=== PATIENT | female | born 1965 | race Caucasian/White ===

== ENCOUNTER → 2017-08-04 11:45 | Outpatient (CLI) | payer BC, SELFPAY ==
--- NOTE | 2017-08-04 11:50 | XR_ITS ---
EXAM: XR lumbar spine min 4V HISTORY: ITS.REASON: low back pain ORDERING PHYSICIAN: Treva Cortes PATIENT AGE: 52 years COMPARISON: FINDINGS: Normal alignment. No fracture or dislocation. No lytic or blastic change. There is mild degenerative disc disease at L5-S1 and mild facet arthritic change at L4-L5 and L5-S1. IMPRESSION: Mild degenerative disc disease and facet arthritic change of the lumbar spine
--- NOTE | 2017-08-04 11:50 | XR_ITS ---
EXAM: XR thoracic spine 3V HISTORY: ITS.REASON: low back pain COMPARISON: FINDINGS: Normal alignment. No fracture or dislocation. No lytic or blastic change. There is mild multilevel degenerative disc disease of the mid and lower thoracic spine with slight decrease in the disc space and endplate osteophytes. IMPRESSION: Mild thoracic spondylosis
== END ==
PROVIDERS: PCP Nurse Practitioner Family; Visit Provider Nurse Practitioner Family
DX: M54.32 Sciatica, left side (principal)
CPT/HCPCS: 72072; 72110

== ENCOUNTER → 2017-08-18 12:05 | Outpatient (CLI) | payer BC, SELFPAY ==
--- NOTE | 2017-08-18 12:07 | US_ITS ---
US gallbladder HISTORY: ITS.REASON: abd pain ORDERING PHYSICIAN: Treva Cortes PATIENT AGE: 52 years COMPARISON: FINDINGS: PANCREAS: Unremarkable. No obvious mass or abnormal fluid collection. No ductal dilatation LIVER: No focal liver lesions demonstrated. Homogeneous echogenicity. No intrahepatic biliary ductal dilatation evident. There is increased echogenicity of the liver suggesting fatty liver RIGHT KIDNEY: Unremarkable. Normal size and echogenicity. No hydronephrosis GALLBLADDER: No gallstones, gallbladder wall thickening, pericholecystic fluid, or biliary dilatation. IMPRESSION: 1. Negative gallbladder ultrasound. 2. Fatty liver
== END ==
PROVIDERS: PCP Emergency Medicine; Visit Provider Nurse Practitioner Family
DX: K80.50 Calculus of bile duct without cholangitis or cholecystitis without obstruction (principal)
CPT/HCPCS: 76705

== ENCOUNTER → 2017-09-05 09:57 | Outpatient (CLI) | payer BC, SELFPAY ==
--- NOTE | 2017-09-05 09:59 | NM_ITS ---
NM hepatobiliary w pharm HISTORY: Right upper quadrant pain, abdominal pain ITS.REASON: RUQ pain ORDERING PHYSICIAN: Treva Cortes PATIENT AGE: 52 years COMPARISON: 08/18/2017 DOSE: 8.22 mCi technetium Choletec Fatty meal/ensure. No pain reported with fatty meal FINDINGS: Homogeneous activity is present within the hepatic parenchyma. Activity is present in the gallbladder by 10 minutes. Activity is present in the small bowel bythe ejection fraction images. The gallbladder ejection fraction is calculated to be 42% The patient did not report pain or other symptoms during the fatty meal ingestion. IMPRESSION: Unremarkable hepatobiliary scan and gallbladder ejection fraction. No evidence of common or cystic duct obstruction with normal gallbladder ejection fraction
== END ==
PROVIDERS: Family Provider Family Medicine; PCP Emergency Medicine; Visit Provider Nurse Practitioner Family
DX: R10.11 Right upper quadrant pain (principal)
CPT/HCPCS: 78227; A9537

== ENCOUNTER → 2018-12-18 18:06 | Outpatient (CLI) | payer BC, SELFPAY ==
[2018-12-18 18:33] LABS: Basophils # 0.1 K/mm3 (0-0.2); Basophils % 1.3 % (0.1-2.0); Eosinophils # 0.5 K/mm3 (0.0-0.4); Eosinophils % 4.9 % (0.1-12.0); Hemoglobin 14.5 g/dL (12.2-16.2); Lymphocytes # 2.7 K/mm3 (0.7-4.5); Lymphocytes % 29.3 % (10-50); Mean Corpuscular HGB Conc 32.9 g/dL (31.8-35.4); Mean Corpuscular Hemoglobin 29.4 pg (27.0-31.2); Mean Corpuscular Volume 89.3 fl (81-99); Mean Platelet Volume 8.8 fl (7.4-10.4); Monocytes # 0.5 K/mm3 (0.1-1.0); Monocytes % 5.1 % (1.7-9.3); Neutrophils # 5.5 K/mm3 (1.8-7.8); Neutrophils % 59.5 % (37.0-80.0); Platelet Count 338 K/mm3 (142-424); Red Blood Count 4.93 M/mm3 (4.20-5.40); Red Cell Distribution Width 14.2 % (11.5-17.5); White Blood Count 9.3 K/mm3 (4.8-10.8)
[2018-12-18 19:19] LABS: Alanine Aminotransferase 186 U/L (12-78); Albumin Level 4.4 gm/dL (3.4-5.0); Albumin/Globulin Ratio 1.3 (1.1-1.8); Alkaline Phosphatase 107 U/L (46-116); Anion Gap 14.3 mEq/L (5-15); Bilirubin,Total 1.5 mg/dL (0.2-1.0); Blood Urea Nitrogen 8 mg/dL (7-18); Calcium 9.8 mg/dL (8.5-10.1); Carbon Dioxide 29 mmol/L (21.0-32.0); Chloride 102 mmol/L (98-107); Chol/HDL Ratio 6.1 (1-3.5); Cholesterol 209 mg/dL (140-200); Creatinine,Serum 1.05 mg/dL (0.55-1.02); Estimated Glomerular Filt Rate 55 ml/min (>60); GFR (African American) 66 ML/MIN (>60); Globulin 3.3 gm/dl (1.3-3.2); Glucose 149 mg/dL (74-106); HDL Cholesterol 34 mg/dL (29-89); LDL Cholesterol 129 mg/dL (0-130); Sodium 141 mmol/L (136-145); T4 (Thyroxine) 8.9 ug/dl (4.7-13.3); Thyroid Stimulating Hormone 13.05 uIU/ml (0.358-3.740); Total Protein,Serum 7.7 gm/dL (6.4-8.2); Triglycerides 230 mg/dL (30-200); VLDL Cholesterol 46 mg/dL (0-40)
[2018-12-18 19:53] LABS: Aspartate Amino Transferase 75 U/L (15-37); Potassium 4.3 mmoL/L (3.5-5.1)
[2018-12-20 09:48] LABS: Vitamin D 25 Hydroxy 15.9 ng/mL (30.0-100.0)
== END ==
PROVIDERS: Visit Provider Nurse Practitioner Family
DX: E07.9 Disorder of thyroid, unspecified (principal); I10 Essential (primary) hypertension
CPT/HCPCS: 80053; 80061; 82652; 84436; 84443; 85025

== ENCOUNTER → 2021-02-16 13:26 | Outpatient (CLI) | payer OTHER, SELFPAY ==
[2021-02-16 16:11] LABS: Hemoglobin A1C 11.3 % (4.0-6.0)
[2021-02-17 12:27] LABS: C-Peptide 7.9 ng/mL (1.1-4.4)
== END ==
PROVIDERS: Visit Provider Nurse Practitioner Family
DX: E11.9 Type 2 diabetes mellitus without complications (principal)
CPT/HCPCS: 83036; 84681

== ENCOUNTER → 2021-04-10 10:33 | Outpatient (CLI) | payer OTHER, SELFPAY ==
--- NOTE | 2021-04-10 10:34 | MM_ITS ---
PROCEDURE INFORMATION: Exam: MG Bilateral Screening 3D Mammography Exam date and time: 04/10/2021 10:34 AM Age: 55 years old Clinical indication: Encounter for screening mammogram for malignant neoplasm of breast TECHNIQUE: Imaging protocol: Bilateral screening tomosynthesis and 2D mammography including computer-aided detection (CAD) when performed. COMPARISON: No relevant prior studies available. FINDINGS: MAMMOGRAPHY: Breast composition: The breast tissue is composed of scattered areas of fibroglandular density. Mass: 0.8 cm questionable ovoid mass in the posterior third of the left upper outer quadrant Architectural distortion: None. Calcifications: No suspicious calcifications. Asymmetric density: None. Skin thickening: None. Axillary adenopathy: None. IMPRESSION: Patient to be recalled for spot compression views of the left breast in the CC and MLO projections, a full 90 degree lateral view, and left breast ultrasound for further evaluation of a left breast mass. ASSESSMENT: BI-RADS Category 0: Incomplete- Need Additional Imaging Evaluation and/or Prior Mammograms for Comparison
== END ==
PROVIDERS: PCP Emergency Medicine; Visit Provider Nurse Practitioner Family
DX: Z12.31 Encounter for screening mammogram for malignant neoplasm of breast (principal)
CPT/HCPCS: 77063; 77067

== ENCOUNTER → 2021-05-05 14:20 | Outpatient (CLI) | payer OTHER, SELFPAY ==
--- NOTE | 2021-05-05 14:20 | US_ITS ---
PROCEDURE INFORMATION: Exam: US Left Breast, Complete MG Left Diagnostic Breast Tomosynthesis Exam date and time: 05/05/2021 2:20 PM Age: 55 years old Clinical indication: Patient recalled for further evaluation of a questionable left breast mass TECHNIQUE: Imaging protocol: Complete ultrasound of all four quadrants of the Left breast and the retroareolar regions, including ultrasound of the axilla when performed. Left Diagnostic tomosynthesis and 2D mammography including computer-aided detection (CAD) when performed. Unilateral or bilateral exam. COMPARISON: 1. MG MM DIG SCREENING MAMM BI W/CAD 04/10/2021 10:29 AM 2. MG DMDXUL DIG MAMM-DX UNILATERAL-LT 05/26/2011 11:20 AM FINDINGS: MAMMOGRAPHY: Digital diagnostic spot compression views of the left breast demonstrate normal overlapping fibroglandular structures without persistent mass or asymmetry identified. ULTRASOUND: Sonographic images of the left breast including the retroareolar region, all 4 quadrants and the axilla do not demonstrate any solid masses. Minimal subcentimeter cystic change in the upper inner quadrant. No architectural distortion or acoustical shadowing. No skin thickening or axillary adenopathy. IMPRESSION: No mammographic or sonographic evidence of malignancy. Annual bilateral mammographic screening is recommended unless otherwise clinically indicated. ASSESSMENT: BI-RADS Category 2: Benign
== END ==
PROVIDERS: PCP Emergency Medicine; Visit Provider Nurse Practitioner Family
DX: R92.8 Other abnormal and inconclusive findings on diagnostic imaging of breast (principal)
CPT/HCPCS: 76641; 77061; 77065; G0279

== ENCOUNTER → 2021-06-09 10:10 | Outpatient (CLI) | payer OTHER, SELFPAY ==
--- NOTE | 2021-06-09 10:18 | XR_ITS ---
FINAL REPORT CLINICAL HISTORY: back pain..lt leg burning x 5 months FINDINGS: LUMBAR SPINE SERIES Three views demonstrate no fracture or subluxation. There is mild degenerative change of the lower lumbar spine with small osteophytes. IMPRESSION: Mild degenerative changes. Reviewed, Interpreted and Dictated by Raj Lechuga III, MD Transcribed by Amanda Brunner Authenticated by Raj Lechuga III, MD on 06/09/2021 12:12:58 PM [facility]
== END ==
PROVIDERS: PCP Nurse Practitioner Family; Visit Provider Nurse Practitioner Family
DX: M54.50 Low back pain, unspecified (principal)
CPT/HCPCS: 72100

== ENCOUNTER → 2021-06-18 09:23 | Outpatient (CLI) | payer OTHER, SELFPAY ==
[2021-06-18 09:54] LABS: Hemoglobin A1C 5.3 % (4.0-6.0)
[2021-06-18 10:00] LABS: Microalbumin < 6.000 mg/L (0-16.7)
[2021-06-18 10:02] LABS: Basophils # 0.1 K/mm3 (0-0.2); Basophils % 1.2 % (0.1-2.0); Eosinophils # 0.6 K/mm3 (0.0-0.4); Eosinophils % 6.2 % (0.1-12.0); Hematocrit 44.6 % (37.0-47.0); Hemoglobin 15.1 g/dL (12.2-16.2); Lymphocytes # 2.5 K/mm3 (0.7-4.5); Lymphocytes % 25.5 % (10-50); Mean Corpuscular HGB Conc 33.9 g/dL (31.8-35.4); Mean Corpuscular Hemoglobin 28.9 pg (27.0-31.2); Mean Corpuscular Volume 85.2 fl (81-99); Mean Platelet Volume 8.5 fl (7.4-10.4); Monocytes # 0.5 K/mm3 (0.1-1.0); Monocytes % 5.5 % (1.7-9.3); Neutrophils # 6.1 K/mm3 (1.8-7.8); Neutrophils % 61.6 % (37.0-80.0); Platelet Count 260 K/mm3 (142-424); Red Blood Count 5.23 M/mm3 (4.20-5.40); Red Cell Distribution Width 13.3 % (11.5-17.5); White Blood Count 9.8 K/mm3 (4.8-10.8)
[2021-06-18 10:16] LABS: Chloride 96 mmol/L (98-107); Potassium 4.2 mmoL/L (3.5-5.1); Sodium 135 mmol/L (136-145)
[2021-06-18 10:18] LABS: Blood Urea Nitrogen 9 mg/dl (7-17); Estimated Glomerular Filt Rate 74 ml/min (>60); GFR (African American) 90 ML/MIN (>60)
[2021-06-18 10:19] LABS: Alanine Aminotransferase 39 U/L (12-78); Albumin Level 4.8 g/dl (3.5-5.0); Albumin/Globulin Ratio 1.8 (1.1-1.8); Alkaline Phosphatase 98 U/L (38-126); Anion Gap 13.2 mEq/L (5-15); Aspartate Amino Transferase 34 U/L (14-36); Bilirubin,Total 2.2 mg/dl (0.2-1.3); Calcium 9.1 mg/dl (8.4-10.2); Carbon Dioxide 30 mmol/L (22.0-30.0); Chol/HDL Ratio 4.5 (1-3.5); Cholesterol 178 mg/dl (140-200); Globulin 2.6 g/dL (1.3-3.2); Glucose 114 mg/dl (74-100); HDL Cholesterol 40 mg/dl (40-60); Total Protein,Serum 7.4 g/dl (6.3-8.2); Triglycerides 136 mg/dl (30-150); VLDL Cholesterol 27 mg/dL (0-40)
[2021-06-18 10:31] LABS: Direct LDL Cholesterol 103.15 mg/dL (100-129)
[2021-06-18 10:36] LABS: 25-OH Vitamin D, Total < 12.8 ng/mL (30-100)
[2021-06-18 10:37] LABS: T4 (Thyroxine) 12.3 ug/dl (5.53-11.0)
[2021-06-18 10:50] LABS: Thyroid Stimulating Hormone 4.89 uIU/mL (0.465-4.68)
== END ==
PROVIDERS: Visit Provider Nurse Practitioner Family
DX: E11.9 Type 2 diabetes mellitus without complications (principal); E55.9 Vitamin D deficiency, unspecified; Z79.84 Long term (current) use of oral hypoglycemic drugs; Z79.899 Other long term (current) drug therapy
CPT/HCPCS: 80053; 80061; 82043; 82306; 83036; 84436; 84443; 85025

== ENCOUNTER → 2021-06-24 10:48 | Outpatient (CLI) | payer OTHER, SELFPAY ==
--- NOTE | 2021-06-24 10:49 | CT_ITS ---
FINAL REPORT TECHNIQUE: Thin section axial CT images with coronal and sagittal reformats were performed. This study was performed with techniques to keep radiation doses as low as reasonably achievable (ALARA). Individualized dose reduction techniques using automated exposure control or adjustment of mA and/or kV according to the patient''s size were employed. CLINICAL HISTORY: left hip pain burning sensation FINDINGS: There are no fractures. The musculature is intact. There are no masses or fluid collections. There are no soft tissue abnormalities. IMPRESSION: No acute process. Reviewed, Interpreted and Dictated by Raj Lechuga III, MD Transcribed by Amanda Brunner Authenticated by Raj Lechuga III, MD on 06/24/2021 01:19:57 PM [facility]
== END ==
PROVIDERS: PCP Nurse Practitioner Family; Visit Provider Nurse Practitioner Family
DX: M25.552 Pain in left hip (principal)
CPT/HCPCS: 73700

== ENCOUNTER 2021-06-26 10:38 | Day surgery (SDC) | payer OTHER, SELFPAY ==
[2021-06-26 10:54] VITALS: BMI 33.2
[2021-06-26 11:03] VITALS: BP 124/79; PULSE 67; RESP 18; TEMP 36.8; O2SAT 99
[2021-06-26 11:07] LABS: Coronavirus 19, PCR Not Detected (NotDetected); Influenza A, PCR Not Detected (NotDetected); Influenza B, PCR Not Detected (NotDetected)
[2021-06-26 12:04] VITALS: O2SAT 99
--- NOTE | 2021-06-26 12:12 | P.PN_ITS ---
[facility] Anesthesia Checklist - Patient Identification Patient Identification: Arm Band - Structural Data Admitted From: Home Planned Operative Procedure/s: colonoscopy Consent for Planned Operative Procedure(s) Verified: Yes Verified Documents: Surgical Consent, History and Physical - NPO Status Verified Time NPO: 00:00 - Additional verifications Anesthesia Reactions: No - Airway Assessment C-Spine Mobility Assessed: Yes (mp2) TMJ Mobility Assessed: Yes Dentition: Edentulous - Neurological Assessment Level of Consciousness: Awake, Alert - Anesthesia Plan Anesthesia Risk discussed: Yes Anesthesia Plan: Verified ASA Class: II Anesthesia Type: MAC [facility] History I have reviewed the patient's past medical history: Yes Medical History: Reports:: Diabetes Mellitus Type 2, Hyperlipidemia, Hypertension Denies:: Cancer, Diabetes Mellitus Type 1, Internal Pacemaker, MRSA, Seizures *Have you ever received a pneumonia vaccine?: No *Have you received a flu vaccine this season?: No Other Medical History: Reports: Thyroid Disease Anesthesia experience/problems:: nac Other Surgeries: Yes: Hysterectomy-Total. No: Pacemaker Amputation: No Fractures: No - *Social History Last grade of school completed: Some college Smoking Status: Never smoker Alcohol Intake: never Substance Use Type: denies use *Occupational Status:: employed Housing: house Household Members: family *Travel in the last 8 weeks: None Family Hx:: Cancer
[2021-06-26 13:07] VITALS: BP 83/58; PULSE 75; RESP 18; TEMP 36.4; O2SAT 91
--- NOTE | 2021-06-26 13:07 | HMH.SCOPE ---
- Procedure: Date: 06/26/21 Patient Date of :: 1965 Procedure Performed:: Total colonoscopy to terminal ileum with numerous polypectomy Indications:: Patient is a 55-year-old female referred by Treva Cortes for initial screening colonoscopy. Patient states that she had tried to do a Cologuard test but was unable to do so as she does not have solid stools. She is asymptomatic. She was scheduled for screening colonoscopy. She underwent Covid testing the day of the procedure which was negative. Performing Provider:: Raj Frankel MD Referring Provider:: Treva Cortes Sedation:: MAC sedation Procedure:: Patient was taken to endoscopy procedure room. She was positioned in lateral decubitus position. Adequate intravenous sedation was achieved with anesthesia titration of propofol. Variable stiffness Olympus colonoscope was inserted via the anus. Is advanced to the cecum. Ileocecal valve and appendiceal orifice were clearly identified. Colonoscope was advanced short distance into the terminal ileum which appeared grossly normal. Colonoscope was slowly withdrawn through the colon with careful surveillance. In the ascending colon there was a small 3 to 4 mm polyp removed with cold snare. In the descending colon she had a small polyp removed with biopsy forceps. The sigmoid colon there was a small polyp removed with cold snare. Rectosigmoid colon polyp removed with cold snare with completion polypectomy using biopsy forceps. Distal sigmoid colon polyp removed with biopsy forceps. She had a proximal rectal polyp which was pedunculated adenomatous appearing removed with snare. She had several possible hyperplastic polyps in the rectum which were removed with cold snare. In the distal rectum there was a confluence of possible hyperplastic polyps of which multiple biopsies were obtained. He had anorectal lesion which appeared more polypoid than hemorrhoid and it was removed with hot snare. Retroflexion revealed minimal internal hemorrhoids. Colonoscope was withdrawn. Findings:: Numerous polyps Rare diverticulosis Recommendations:: Follow-up colonoscopy pending the results of the polyps. Likely within 2 or 3 years. However if the distal rectal biopsy of the confluence of polyps or the anorectal polyp is adenomatous may need repeat colonoscopy in as early as 6 months. Complications:: None immediately apparent Estimated blood obtained (mL): 3
[2021-06-26 13:17] VITALS: BP 98/58; PULSE 68; RESP 18; TEMP 36.4; O2SAT 98
[2021-06-26 13:27] VITALS: BP 122/77; PULSE 63; RESP 18; TEMP 36.4; O2SAT 98
[2021-06-26 13:41] VITALS: BP 122/77; PULSE 63; RESP 18; TEMP 36.4; O2SAT 98
[2022-01-21 10:57] LABS: POC Glucose,Bedside 103 (70-110)
== END 2021-06-26 13:41 | disposition home or self-care (01) ==
LOC: OUTP 10:40
PROVIDERS: PCP Nurse Practitioner Family; Visit Provider Surgery
PROC: 0DJD8ZZ Inspection of Lower Intestinal Tract, Via Natural or Artificial Opening Endoscopic (ICD-10-PCS; CPT 45385; principal; 2021-06-26 11:00)
DX: Z12.11 Encounter for screening for malignant neoplasm of colon (principal); I10 Essential (primary) hypertension; E11.9 Type 2 diabetes mellitus without complications; E78.5 Hyperlipidemia, unspecified; E07.9 Disorder of thyroid, unspecified; Z80.9 Family history of malignant neoplasm, unspecified; K63.5 Polyp of colon; K57.32 Diverticulitis of large intestine without perforation or abscess without bleeding; K62.1 Rectal polyp
CPT/HCPCS: 45385; 45380; 82962; C9803; U0003; U0005

== ENCOUNTER → 2021-10-16 13:25 | Outpatient (CLI) | payer OTHER, SELFPAY ==
[2021-10-16 13:02] LABS: Anion Gap 10.3 mEq/L (5-15); Blood Urea Nitrogen 19 mg/dl (7-17); Calcium 9.2 mg/dl (8.4-10.2); Carbon Dioxide 29 mmol/L (22.0-30.0); Chloride 102 mmol/L (98-107); Estimated Glomerular Filt Rate 74 ml/min (>60); GFR (African American) 89 ML/MIN (>60); Glucose 117 mg/dl (74-100); Potassium 4.3 mmoL/L (3.5-5.1); Sodium 137 mmol/L (136-145)
[2021-10-16 13:10] LABS: Hemoglobin A1C 5.3 % (4.0-6.0)
[2021-10-16 13:13] LABS: Amphetamine/Metha Screen,Urine Negative ng/ml (<1000)
[2021-10-16 13:14] LABS: Barbiturates Screen,Urine Negative ng/ml (<200)
[2021-10-16 13:15] LABS: Benzodiazepines Screen,Urine Negative ng/ml (<200)
[2021-10-16 13:16] LABS: Cannabinoid Screen,Urine Negative ng/ml (<50); Cocaine Screen,Urine Negative ng/ml (<300)
[2021-10-16 13:17] LABS: Methadone Screen,Urine Negative ng/ml (<300); Opiate Screen,Urine Negative ng/ml (<300)
[2021-10-16 13:18] LABS: Phencyclidine Screen,Urine Negative ng/ml (<25)
== END ==
PROVIDERS: PCP Nurse Practitioner Family; Visit Provider Nurse Practitioner Family
DX: E11.9 Type 2 diabetes mellitus without complications (principal); I10 Essential (primary) hypertension; Z79.899 Other long term (current) drug therapy
CPT/HCPCS: 80048; 80305; 83036

== ENCOUNTER → 2022-02-19 16:39 | Outpatient (CLI) | payer OTHER, SELFPAY ==
[2022-02-19 14:36] LABS: Basophils # 0.1 K/mm3 (0-0.2); Basophils % 1.3 % (0.1-2.0); Eosinophils # 0.4 K/mm3 (0.0-0.4); Eosinophils % 4.3 % (0.1-12.0); Hematocrit 44.6 % (37.0-47.0); Hemoglobin 14.5 g/dL (12.2-16.2); Lymphocytes # 2.2 K/mm3 (0.7-4.5); Lymphocytes % 22.4 % (10-50); Mean Corpuscular HGB Conc 32.5 g/dL (31.8-35.4); Mean Corpuscular Hemoglobin 27.6 pg (27.0-31.2); Mean Corpuscular Volume 84.9 fl (81-99); Mean Platelet Volume 9.2 fl (7.4-10.4); Monocytes # 0.6 K/mm3 (0.1-1.0); Monocytes % 5.8 % (1.7-9.3); Neutrophils # 6.6 K/mm3 (1.8-7.8); Neutrophils % 66.2 % (37.0-80.0); Platelet Count 271 K/mm3 (142-424); Red Blood Count 5.25 M/mm3 (4.20-5.40); Red Cell Distribution Width 14.3 % (11.5-17.5)
[2022-02-19 14:59] LABS: Hemoglobin A1C 5.4 % (4.0-6.0)
[2022-02-19 15:05] LABS: Alanine Aminotransferase 29 U/L (12-78); Albumin Level 4.4 g/dl (3.5-5.0); Albumin/Globulin Ratio 1.5 (1.1-1.8); Alkaline Phosphatase 107 U/L (38-126); Aspartate Amino Transferase 29 U/L (14-36); Bilirubin,Total 2.1 mg/dl (0.2-1.3); Calcium 9.4 mg/dl (8.4-10.2); Carbon Dioxide 29 mmol/L (22.0-30.0); Chloride 99 mmol/L (98-107); Chol/HDL Ratio 4.1 (1-3.5); Cholesterol 191 mg/dl (140-200); Globulin 2.9 g/dL (1.3-3.2); Glucose 108 mg/dl (74-100); HDL Cholesterol 47 mg/dl (40-60); Sodium 140 mmol/L (136-145); Total Protein,Serum 7.3 g/dl (6.3-8.2); Triglycerides 98 mg/dl (30-150); VLDL Cholesterol 20 mg/dL (0-40)
[2022-02-19 15:09] LABS: Blood Urea Nitrogen 16 mg/dl (7-17); Estimated Glomerular Filt Rate 74 ml/min (>60); GFR (African American) 89 ML/MIN (>60)
[2022-02-19 15:36] LABS: Thyroid Stimulating Hormone 2.57 uIU/mL (0.465-4.68)
== END ==
PROVIDERS: PCP Nurse Practitioner Family; Visit Provider Nurse Practitioner Family
DX: I10 Essential (primary) hypertension (principal); E11.9 Type 2 diabetes mellitus without complications; R53.83 Other fatigue; Z79.84 Long term (current) use of oral hypoglycemic drugs
CPT/HCPCS: 80053; 80061; 83036; 84443; 85025

== ENCOUNTER → 2022-04-08 09:45 | Outpatient (CLI) | payer OTHER, SELFPAY | PROVIDERS: PCP Nurse Practitioner Family; Visit Provider Nurse Practitioner Family | DX: N39.0 Urinary tract infection, site not specified (principal) | CPT/HCPCS: 87086 ==

== ENCOUNTER 2022-04-14 10:06 | Outpatient (RCR) | payer OTHER, SELFPAY ==
--- NOTE | 2022-04-14 10:42 | HMH.PTOPEV ---
PT Outpatient Evaluation Rehab PT Outpatient Evaluation Start: 04/14/22 10:27 Freq: Status: Active Protocol: Document 04/14/22 10:27 TYRELL (Rec: 04/14/22 10:42 TYRELL [id number]) E-signed By Yassine Emmanuel, PT Outpatient Therapy Subjective History Subjective History Pt reports h/o chronic LBP since work injury ~2 years ago . Pt reports left > right sided LBP with left > right LE radicular s/s from glut mm area to posterior knee level. Pt reports previous imaging studies have revealed disc issues in lumbar spine. PMH:DM Chief Complaint Pain,Stiff,Paresthesia, Weakness Symptom Type Ache,Sharp,Dull,Stabbing, Burning Symptoms Relieved By Rest/Positioning,Heat, Prescription Meds Symptoms Aggravated By Standing,Bending/Stooping, Twisting,Walking,Lifting Prior Functional Limitations Lifting,Housework,Standing, Walking,Bending/Stooping Current Functional Limitations Lifting,Housework,Standing, Recreation Activity,Bending/ Stooping Symptom Description Constant but Variable Level of pain today (0-10) 8 Pain scale - at its best (0-10) 8 Pain scale - at its worst (0-10) 10 Lumbopelvic Eval Posture Thoracic Spine Posture Standing Position Increased Kyphosis Lumbar Spine Posture Standing Position Increased Lordosis Assistive device Assistive Devices None / NA Gait Observation General Gait Pattern Observation Antalgic Gait Palapation tenderness bilateral thoracic spinal tenderness Yes: 1-2/4 lumbar spinal tenderness Yes: 3/4 paraspinal tenderness Yes: 3/4 buttock tenderness Yes: 3-4/4 Lumbar/Sacral Palpation Findings Tenderness,Trigger Point, Muscle Guarding Accessory Movement L-spine Vertebrae Accessory Movements [place] [facility] [place] that Elicit Symptoms L2 bilateral L3 bilateral L4 bilateral L5 bilateral S1 bilateral Range of Motion Lumbar Spine Active Flexion Range of 0-40 Motion (degrees) Lumbar Spine Active Extension Range of 0-20 Motion (degrees) Left Lumbar Spine Lateral Flexion Active 0-20 Range of Motion (degrees) Right Lumbar Spine Lateral Flexion 0-20 Active Range of Motion (degrees) Lumbar
== END 2022-04-14 11:06 | disposition home or self-care (01) ==
LOC: PT 10:06
PROVIDERS: PCP Nurse Practitioner Family; Visit Provider Nurse Practitioner Family
DX: M54.42 Lumbago with sciatica, left side (principal); M54.41 Lumbago with sciatica, right side; G89.29 Other chronic pain
CPT/HCPCS: 97163

== ENCOUNTER → 2022-04-15 08:54 | Outpatient (CLI) | payer OTHER, SELFPAY ==
--- NOTE | 2022-04-15 08:54 | MR_ITS ---
FINAL REPORT CLINICAL HISTORY: LBP FINDINGS: Multiplanar MR imaging of the lumbar spine was performed without contrast. On the sagittal T2-weighted images, disc degeneration is seen at multiple levels. There is mild anterolisthesis of L5 on S1 with endplate changes at this level. Note is made of several hemangiomas. There is no evidence of fracture. The conus has an unremarkable appearance. L1-2: There is no significant canal stenosis or neural foraminal narrowing. L2-3: An annular bulge and facet arthropathy are present. There is no significant canal stenosis or neural foraminal narrowing. L3-4: An annular bulge is present. There is no significant canal stenosis or neural foraminal narrowing. L4-5: An annular bulge and facet arthropathy are present. There is no significant canal stenosis or neural foraminal narrowing. L5-S1: An annular bulge is present. Facet arthropathy and osteophytes are present. There is a small right paracentral disc protrusion which contacts the right S1 nerve root. There is mild bilateral neural foraminal narrowing. Note is made of mild spurring of the sacroiliac joints. IMPRESSION: Right paracentral disc protrusion at L5-S1 contacts the right S1 nerve root. Multilevel degenerative disc disease and spondylosis. Reviewed, Interpreted and Dictated by Raj Lechuga III, MD Transcribed by Amanda Brunner Authenticated and [facility]
== END ==
PROVIDERS: PCP Nurse Practitioner Family; Visit Provider Nurse Practitioner Family
DX: G89.29 Other chronic pain (principal); M54.41 Lumbago with sciatica, right side; M54.42 Lumbago with sciatica, left side
CPT/HCPCS: 72148; 76376

== ENCOUNTER → 2022-06-08 12:52 | Outpatient (POV) | payer OTHER, SELFPAY ==
[2022-06-08 13:03] VITALS: BP 156/86; PULSE 83; RESP 20; TEMP 37.2; O2SAT 98; BMI 35.3
--- NOTE | 2022-06-08 13:37 | EXP.PAIN.OV ---
HPI Data of Consult Patient: new to practice Consult date: 06/08/22 Requesting Physician: Lonnie Cano CRNA Primary Care Provider: Stuart Finney MD Consult Narrative Reason for consult: Lumbar back pain. Bilateral hip and leg radicular symptoms History of present illness: Ms. Veliz is a 56 year old female who presents to our clinic today for initial evaluation regarding chronic low back pain she describes as constant, dull, aching. Patient also complaining of bilateral hip and leg radicular symptoms. Patient had consultation with [facility] neurosurgery. This was on 05/31/2022. Patient was started on gabapentin 400 mg 1 p.o. twice daily at that time. Patient reports today gabapentin decreased her radicular symptoms about 40% bilaterally. Patient was referred to us at that time for interventional management of her symptoms. He was recommended by neurosurgery the patient undergo transforaminal epidural steroid injection on the right at L5-S1. However, after lengthy discussion with the patient regarding her symptoms. I recommend starting with interlaminar epidural steroid injection at the L4-5 level. Her lumbar MRI shows multilevel disc bulge L3-4, L4-5 and L5-S1. The S1 nerve root is in contact with the disc protrusion to the right at L5-S1. Due to the fact she has bilateral leg radiculopathy I suggest to the patient we start with interlaminar L4-5 epidural steroid injection. CC: Lonnie Cano CRNA [facility] Disclaimer: The information contained in this section may have been updated after the patient was seen, as this information can be updated by other users. Medical History (Updated 06/08/22 @ 13:43 by Lonnie Cano CRNA) HLD (hyperlipidemia) Hypothyroid Left hip pain Low Back Pain Family History (Updated 06/08/22 @ 13:11 by Josie Buckner RN) Other No significant family history Social History (Updated 06/08/22 @ 13:11 by Josie Buckner RN) Smoking Status: Never smoker alcohol intake: never substance use type: denies use current occupational status: employed and other Travel in the last 8 weeks: None household members: family housing: house current occupation: [employer] current occupational exposures/hazards: No caffeine: Yes Review of Systems Review of Systems Review of systems (narrative): Patient is awake alert [place] x3. In no acute distress. Flexion-extension lumbar spine somewhat guarded secondary to pain. Deep tendon reflexes upper lower extremities normal. Motor strength upper and lower extremities normal. There is no gross sensory deficit. Gait is normal. Meds Home Medications and Allergies Home Medications Medication Instructions Recorded Confirmed Type blood-glucose meter 06/26/21 04/08/22 History flash glucose sensor 06/26/21 04/08/22 History blood sugar diagnostic (OneTouch #100 ea 02/20/22 04/08/22 Rx Ultra Test strips) lancets 33 gauge #100 ea 02/20/22 04/08/22 Rx ondansetron 4 mg disintegrating 4 mg PO Q8H PRN nausea and 05/20/22 06/08/22 Rx tablet vomiting #30 tabs ergocalciferol (vitamin D2) 1,250 1,250 mcg PO DAILY Supplement 06/08/22 06/08/22 History mcg (50,000 unit) capsule gabapentin 400 mg capsule 400 mg PO TID nerve pain 06/08/22 06/08/22 History levothyroxine 88 mcg tablet 88 mcg PO DAILY thyroid 06/08/22 06/08/22 History lisinopril 20 1 tab PO DAILY blood pressure 06/08/22 06/08/22 History mg-hydrochlorothiazide 12.5 mg tablet naproxen 500 mg tablet 500 mg PO BID Pain 06/08/22 06/08/22 History quetiapine 25 mg tablet (Seroquel) 25 mg PO DAILY . 06/08/22 06/08/22 History semaglutide 0.25 mg or 0.5 mg (2 0.5 mg SQ WEEKLY Diabetes 06/08/22 06/08/22 History mg/1.5 mL) subcutaneous pen injector (Ozempic) simvastatin 5 mg tablet 5 mg PO DAILY Cholesterol 06/08/22 06/08/22 History New Prescriptions to Start Prescriptions: Allergies Allergy/AdvReac Type Severity Reaction Status Date / Time
--- NOTE | 2022-06-08 14:02 | EXP.PAIN.SOA ---
[facility] Pain Management SOAP Note Subjective:: This patient is a very pleasant [facility] Disclaimer: The information contained in this section may have been updated after the patient was seen, as this information can be updated by other users. Medical History (Updated 06/08/22 @ 13:43 by Lonnie Cano CRNA) HLD (hyperlipidemia) Hypothyroid Left hip pain Low Back Pain Family History (Updated 06/08/22 @ 13:11 by Josie Buckner RN) Other No significant family history Social History (Updated 06/08/22 @ 13:11 by Josie Buckner RN) Smoking Status: Never smoker alcohol intake: never substance use type: denies use current occupational status: employed and other Travel in the last 8 weeks: None household members: family housing: house current occupation: [employer] current occupational exposures/hazards: No caffeine: Yes
== END ==
PROVIDERS: PCP Emergency Medicine; Visit Provider Nurse Anesthetist, Certified Registered
DX: M51.16 Intervertebral disc disorders with radiculopathy, lumbar region (principal)
CPT/HCPCS: 99202; G0463

== ENCOUNTER 2022-06-15 07:59 | Day surgery (SDC) | payer OTHER, SELFPAY ==
[2022-06-15 08:14] VITALS: BP 161/95; PULSE 75; RESP 18; TEMP 36.6; O2SAT 100; BMI 34.2
[2022-06-15 08:35] VITALS: BP 180/86; PULSE 68; RESP 18; O2SAT 97
[2022-06-15 08:38] VITALS: BP 180/83; PULSE 83; RESP 18; O2SAT 97
[2022-06-15 08:42] VITALS: BP 134/74; PULSE 68; RESP 18; O2SAT 100
--- NOTE | 2022-06-15 09:21 | P.PCN_ITS ---
Procedure Date: 06/15/22 Time: 08:30 Anesthesiologist:: Lonnie Cano CRNA Complications:: None Pre-procedure Diagnosis:: Degenerative disc disease lumbar spine multilevels. Lumbar radiculopathy. Multilevel lumbar disc bulge Post-procedure Diagnosis:: Same. Indications for Procedure:: Patient is a very pleasant 56-year-old female comes our clinic today for her initial lumbar epidural steroid injection at the L4-5 level. Patient describes low back pain as constant, dull, aching. She also complains of bilateral hip and leg radicular symptoms. Procedure Details:: Procedure: Lumbar epidural steroid injection under fluoroscopy Informed consent was obtained and the risks and benefits of the procedure were explained to the patient. The patient was taken to the procedure room and noninvasive monitors placed, including noninvasive blood pressure cuff and pulse oximeter. The back was viewed using C-arm Fluoroscopy and prepped using Chloraprep as a cleansing solution and the L4-L5 interspace was palpated. Skin and subcutaneous tissues were anesthetized using lidocaine 1.5% and a 25-gauge needle. After this, an 18-gauge Touhy epidural needle was placed into the L4-L5 interspace and advanced using fluoroscopic guidance and loss of resistance to air until the epidural space was encountered. After confirmation of needle placement in the epidural space, with dye, a solution containing normal saline, 3 mL and Depo-Medrol 80 mg were incrementally injected into the lumbar epidural space. The patient tolerated the procedure well with no complications. The patient was observed in the Pain Clinic and then discharged home neurologic ally intact. Plan and Disposition:: Patient was discharged without incident.
== END 2022-06-15 08:42 | disposition home or self-care (01) ==
PROVIDERS: PCP Emergency Medicine; Visit Provider Nurse Anesthetist, Certified Registered
DX: M51.16 Intervertebral disc disorders with radiculopathy, lumbar region (principal)
CPT/HCPCS: 62323; J1040

== ENCOUNTER → 2022-07-01 10:24 | Outpatient (POV) | payer OTHER, SELFPAY ==
--- NOTE | 2022-07-01 10:33 | EXP.PAIN.SOA ---
[facility] Pain Management SOAP Note Subjective:: Patient is a pleasant 56-year-old female who presents today for follow-up of lumbar epidural steroid injection at L4-L5 on 06/15/2022. We are currently treating the patient for degenerative disc disease of lumbar spine with lumbar radiculopathy symptoms, bilateral hip pain. Today she rates her pain a 6 out of 10. Patient states the injection did provide upwards of 30% or more and that it did take away the sharp shocking pain she was experiencing down her legs. She does rate her pain a 6 out of 10 today. She states that she continues to experience a dull ache that radiates down her lower extremities. She does state that she has had imaging of her bilateral hips that did show arthritis. Patient is prescribed gabapentin 400 mg twice a day from 's office. Patient denies any side effects from this medication. Patient states she has tried muscle relaxers in the past however its been years. Her Nixon is [phone]. Its been reviewed and appropriate. Review of Systems: General: No recent weight changes, no fever, no sleep disturbances Respiratory: No cough, no shortness of air, no recurring pulmonary infections Cardiovascular/peripheral vascular: No chest pain, no palpitations, no edema, no shortness of breath Gastrointestinal: No new onset incontinence, normal bowel movements reported Genitourinary: No new onset incontinence Musculoskeletal: Low back pain Psychiatric: [Normal mood/affect] Neurological: [Denies weakness in extremities], [denies balance issues] Objective:: Physical Exam: General: Alert and oriented x3, no acute distress, pleasant and cooperative Lungs: Respirations even and unlabored, symmetrical chest expansion Eyes: PERRL Musculoskeletal: Flexion and extension of lumbar [spine] somewhat guarded secondary to pain, [antalgic gait noted] Neurological: Speech clear, no gross sensory deficit Assessment:: Degenerative disc disease of lumbar spine with lumbar radiculopathy symptoms, bilateral hip pain Plan:: Patient continues to experience significant pain in her low back with radiating symptoms into her lower extremities along with hip pain. I have discussed with the patient that she may benefit from intra-articular hip injections in the future however at this time she would like to wait. I will prescribe the patient cyclobenzaprine 10 mg 3 times daily and provide a 1 month supply of this medication. I will also order the patient a compounding cream and physical therapy. Patient will return to clinic in 1 month for reevaluation of symptoms, medication refill and follow-up. Patient has been instructed to contact the clinic with any concerns before the next appointment. Dr. Padilla has reviewed this note and agrees with this plan of care. This note was dictated using voice recognition software and make contain errors or omissions. [facility] Disclaimer: The information contained in this section may have been updated after the patient was seen, as this information can be updated by other users. Medical History HLD (hyperlipidemia) Hypothyroid Left hip pain Low Back Pain Family History Other No significant family history Social History Smoking Status: Never smoker alcohol intake: never substance use type: denies use current occupational status: employed Travel in the last 8 weeks: None household members: family housing: house current occupation: [employer] current occupational exposures/hazards: No caffeine: Yes
[2022-07-01 10:41] VITALS: BP 156/80; PULSE 85; RESP 18; O2SAT 97; BMI 34.2
== END | disposition home or self-care (01) ==
PROVIDERS: PCP Emergency Medicine; Visit Provider Nurse Practitioner Family
DX: M51.16 Intervertebral disc disorders with radiculopathy, lumbar region (principal); M25.551 Pain in right hip; M25.552 Pain in left hip
CPT/HCPCS: 99212; G0463

== ENCOUNTER 2022-07-21 13:00 | Outpatient (RCR) | payer OTHER, SELFPAY ==
--- NOTE | 2022-07-08 11:42 | HMH.PTOPEV ---
PT Outpatient Evaluation Rehab PT Outpatient Evaluation Start: 07/08/22 11:04 Freq: Status: Active Protocol: Document 07/08/22 11:31 MICHELLE (Rec: 07/08/22 11:42 MICHELLE [id number]) E-signed By Maykel Bush, PT Outpatient Therapy Subjective History Subjective History Patient is a 56 year old female presenting to outpatient PT with reports of chronic BLE radicular symptoms R>L starting approx 10 years ago that has progessively gotten worse over the past 6 months. Patient reports initial injury occurred as a work related lifting activity. Most recent imaging indicates L5/S1 disc protrusion, DDD and spondylosis. Comorbidities include hx of diabetes, neuropathy, HTN and HL. Chief Complaint Pain,Stiff,Paresthesia, Weakness Symptom Type Throb,Burning Symptoms Relieved By Rest/Positioning Symptoms Aggravated By Bending/Stooping,Physical Activity,Walking,Lifting Prior Functional Limitations None,Standing Current Functional Limitations Lifting,Housework,Standing, Walking,Bending/Stooping Symptom Description Constant but Variable Level of pain today (0-10) 7 Pain scale - at its best (0-10) 5 Pain scale - at its worst (0-10) 10 Lumbopelvic Eval Posture Thoracic Spine Posture Standing Position Increased Kyphosis Lumbar Spine Posture Standing Position Increased Lordosis Assistive device Assistive Devices None / NA Palapation tenderness right Lumbar/Sacral Palpation Findings Tenderness Lumbar/Sacral Palpation Overall Comment R SIJ and buttock mm 3/4 Accessory Movement L5 right S1 right Range of Motion Lumbar Spine Active Flexion Range of 62 Motion (degrees) Lumbar Spine Active Extension Range of 14 Motion (degrees) Left Lumbar Spine Lateral Flexion Active 18 Range of Motion (degrees) Right Lumbar Spine Lateral Flexion 17 Active Range of Motion (degrees) Lumbar Spine ROM Limitations Soft Tissue Tightness,Bony Restriction Manual Muscle Test Bilateral Knee Extension Strength Grade 5 Normal Knee Flexion Strength Grade 5 Normal Hip Flexion Strength Grade 5 Normal Extensor Hallucis Longus Strength Grade 5 Normal Ankle Dorsiflexion Strength Gra
== END 2022-07-21 13:05 | disposition home or self-care (01) ==
LOC: PT 13:00
PROVIDERS: PCP Emergency Medicine; Visit Provider Nurse Practitioner Family
DX: M54.50 Low back pain, unspecified (principal)
CPT/HCPCS: 97010; 97014; 97035; 97110; 97163; G0283

== ENCOUNTER → 2022-08-05 08:23 | Outpatient (POV) | payer OTHER, SELFPAY ==
[2022-08-05 08:34] VITALS: BP 127/87; PULSE 84; RESP 18; O2SAT 98; BMI 34.4
--- NOTE | 2022-08-05 08:46 | A.OFFVIS_ITS ---
[facility] Pain Management SOAP Note Subjective:: Patient is a pleasant 57-year-old female who presents today for follow-up and medication refill. We are currently treating the patient for degenerative disc disease of lumbar spine with lumbar radiculopathy symptoms, bilateral hip pain. Today she rates her pain a 7 out of 10. Patient denies any new trauma or injury. Patient denies any change to the location or type of pain she experiences. She states that following her epidural in May she did have improvement in the shocking/numbing sensations she had in her legs however starting back physical therapy has aggravated her pains and she is experiencing more of these prior sensations. Patient is scheduled to see a surgeon in [facility] on 20 August. She is currently managed with gabapentin 400 mg twice a day from Dr. Brand's office and cyclobenzaprine 10 mg 3 times daily from our office. Patient states the muscle relaxer and the compounding cream has helped improve some of her symptoms. Her Nixon is [phone]. Its been reviewed and appropriate. Review of Systems: General: No recent weight changes, no fever, no sleep disturbances Respiratory: No cough, no shortness of air, no recurring pulmonary infections Cardiovascular/peripheral vascular: No chest pain, no palpitations, no edema, no shortness of breath Gastrointestinal: No new onset incontinence, normal bowel movements reported Genitourinary: No new onset incontinence Musculoskeletal: Low back pain, hip pain Psychiatric: [Normal mood/affect] Neurological: [Denies weakness in extremities], [denies balance issues] Objective:: Physical Exam: General: Alert and oriented x3, no acute distress, pleasant and cooperative Lungs: Respirations even and unlabored, symmetrical chest expansion Eyes: PERRL Musculoskeletal: Flexion and extension of lumbar [spine] somewhat guarded secondary to pain, [antalgic gait noted] Neurological: Speech clear, no gross sensory deficit Assessment:: Degenerative disc disease of lumbar spine with lumbar radiculopathy symptoms, b ilateral hip pain Plan:: Patient continues to have significant pain in her low back, hips and legs. I will refill her cyclobenzaprine 10 mg 3 times daily and provide a 3-month supply of this medication. Patient will return to clinic in 6 weeks for reevaluation of symptoms and plan of care. Patient has been instructed to contact the clinic with any concerns before the next appointment. Dr. Padilla has reviewed this note and agrees with this plan of care. This note was dictated using voice recognition software and make contain errors or omissions. [facility] Disclaimer: The information contained in this section may have been updated after the yamilet pastrana was seen, as this information can be updated by other users. Medical History HLD (hyperlipidemia) Hypothyroid Left hip pain Low Back Pain Family History Other No significant family history Social History Smoking Status: Never smoker alcohol intake: never substance use type: denies use current occupational status: employed Travel in the last 8 weeks: None household members: family housing: house current occupation: [employer] current occupational exposures/hazards: No caffeine: Yes
== END | disposition home or self-care (01) ==
PROVIDERS: PCP Emergency Medicine; Visit Provider Nurse Practitioner Family
DX: M51.16 Intervertebral disc disorders with radiculopathy, lumbar region (principal); M25.551 Pain in right hip; M25.552 Pain in left hip
CPT/HCPCS: 99212; G0463

== ENCOUNTER → 2022-09-16 10:15 | Outpatient (CLI) | payer OTHER, SELFPAY ==
[2022-09-16 13:05] LABS: Basophils # 0.1 K/mm3 (0-0.2); Basophils % 1.2 % (0.1-2.0); Eosinophils # 0.5 K/mm3 (0.0-0.4); Eosinophils % 7.1 % (0.1-12.0); Hemoglobin 13.4 g/dL (12.2-16.2); Lymphocytes # 2.1 K/mm3 (0.7-4.5); Lymphocytes % 29.7 % (10-50); Mean Corpuscular HGB Conc 32.8 g/dL (31.8-35.4); Mean Corpuscular Hemoglobin 28.1 pg (27.0-31.2); Mean Corpuscular Volume 85.7 fl (81-99); Mean Platelet Volume 8.4 fl (7.4-10.4); Monocytes # 0.3 K/mm3 (0.1-1.0); Monocytes % 4.7 % (1.7-9.3); Neutrophils % 57.4 % (37.0-80.0); Platelet Count 239 K/mm3 (142-424); Red Blood Count 4.78 M/mm3 (4.20-5.40); Red Cell Distribution Width 14.1 % (11.5-17.5)
[2022-09-16 13:43] LABS: Alanine Aminotransferase 48 U/L (12-78); Albumin/Globulin Ratio 1.7 (1.1-1.8); Alkaline Phosphatase 80 U/L (38-126); Anion Gap 16.8 mEq/L (5-15); Aspartate Amino Transferase 36 U/L (14-36); Bilirubin,Total 1.6 mg/dl (0.2-1.3); Blood Urea Nitrogen 10 mg/dl (7-17); Calcium 8.9 mg/dl (8.4-10.2); Carbon Dioxide 31 mmol/L (22.0-30.0); Chloride 98 mmol/L (98-107); Chol/HDL Ratio 3.6 (1-3.5); Cholesterol 146 mg/dl (140-200); Estimated Glomerular Filt Rate 74 ml/min (>60); GFR (African American) 89 ML/MIN (>60); Globulin 2.3 g/dL (1.3-3.2); Glucose 109 mg/dl (74-100); HDL Cholesterol 41 mg/dl (40-60); Potassium 3.8 mmoL/L (3.5-5.1); Sodium 142 mmol/L (136-145); Total Protein,Serum 6.3 g/dl (6.3-8.2); Triglycerides 170 mg/dl (30-150); VLDL Cholesterol 34 mg/dL (0-40)
[2022-09-16 13:54] LABS: Direct LDL Cholesterol 80.89 mg/dL (100-129)
[2022-09-16 14:14] LABS: Thyroid Stimulating Hormone 1.02 uIU/mL (0.465-4.68)
[2022-09-16 14:30] LABS: Hemoglobin A1C 5.5 % (4.0-6.0)
== END ==
PROVIDERS: PCP Nurse Practitioner Family; Visit Provider Nurse Practitioner Family
DX: E11.9 Type 2 diabetes mellitus without complications (principal); N39.0 Urinary tract infection, site not specified; Z79.84 Long term (current) use of oral hypoglycemic drugs
CPT/HCPCS: 80053; 80061; 83036; 84443; 85025; 87086

== ENCOUNTER → 2022-09-16 13:25 | Outpatient (POV) | payer OTHER, SELFPAY ==
--- NOTE | 2022-09-16 13:28 | EXP.PAIN.SOA ---
[facility] Pain Management SOAP Note Subjective:: Patient is a pleasant 57-year-old female who presents today for follow-up and medication refill.? We are currently treating the patient for degenerative disc disease of lumbar spine with lumbar radiculopathy symptoms, bilateral hip pain.? Today she rates her pain a 8 out of 10.? Patient denies any new trauma or injury.? She states she has been experiencing increased pain around her low back along the left side that radiates into her left hip. She does describe this as a aching sensation with numbness and burning. Patient does state it interferes with her ability perform activities of daily living such as cooking and cleaning. Patient states she does a lot of bending and moving at her job and is constantly on her feet which she does believe aggravates her pain symptoms. She is currently managed with gabapentin 400 mg twice a day from Dr. Brand's office and naproxen 500 mg twice daily cyclobenzaprine 10 mg 3 times daily from our office.? She states she feels like some of the medications are not seeming to help as well. She is also prescribed compounding cream that she states helps and she just placed another order of it recently. Her Nixon is [phone].? Its been reviewed and appropriate. Review of Systems: General: No recent weight changes, no fever, no sleep disturbances Respiratory: No cough, no shortness of air, no recurring pulmonary infections Cardiovascular/peripheral vascular: No chest pain, no palpitations,? no edema, no shortness of breath Gastrointestinal: No new onset incontinence, normal bowel movements reported Genitourinary: No new onset incontinence Musculoskeletal: Low back pain, left hip pain Psychiatric: [Normal mood/affect] Neurological: [Denies weakness in extremities], [denies balance issues] Objective:: Physical Exam: General: Alert and oriented x3, no acute distress, pleasant and cooperative Lungs: Respirations even and unlabored, symmetrical chest expansion Eyes: PERRL Musculoskeletal: Flexion and extension of lumbar [spine] somewhat guarded secondary to pain; extreme point tenderness along left SI with positive left Sofy's, Jose's, Gaenslen's, compression and distraction exam Neurological: Speech clear, no gross sensory deficit Assessment:: Degenerative disc disease of lumbar spine with lumbar radiculopathy symptoms, bilateral hip pain left-sided sacroiliitis Plan:: Patient is experiencing significant pain in her low back along the left side with limited range of motion. Patient did have extreme point tenderness along her left SI with a positive left Sofy's, Jose's, Gaenslen's, compression and distraction exam. I have discussed with the patient that she may benefit from left SI injection. Patient has tried and failed conservative therapy such as oral medications, heat and ice, topicals, physical therapy, at home stretching and exercise for longer than 6 weeks. I will also change her naproxen to Celebrex 200 mg daily and provide a 2-week supply of this medication. Patient has been counseled to discontinue her naproxen and all other NSAIDs while taking this medication and to take it with food to minimize GI upset. We will schedule her for a left SI injection. Patient has been instructed to contact the clinic with any concerns before the next appointment. Dr. Padilla has reviewed this note and agrees with this plan of care. This note was dictated using voice recognition software and make contain errors or omissions. [facility] Disclaimer: The information contained in this section may have been updated after the patient was seen, as this information can be updated by other users. Medical History HLD (hyperlipidemia) Hypothyroid Left hip pain Low Back Pain Family History Other No significant family history Social History (Reviewed 09/16/22 @ 10:19 by Armida Buckner
[2022-09-16 13:53] VITALS: BP 140/84; PULSE 81; RESP 18; O2SAT 97; BMI 34.0
== END | disposition home or self-care (01) ==
PROVIDERS: PCP Emergency Medicine; Visit Provider Nurse Practitioner Family
DX: M51.16 Intervertebral disc disorders with radiculopathy, lumbar region (principal); M46.1 Sacroiliitis, not elsewhere classified; M25.551 Pain in right hip; M25.552 Pain in left hip
CPT/HCPCS: 99212; G0463

== ENCOUNTER → 2022-09-24 13:29 | Outpatient (CLI) | payer OTHER, SELFPAY ==
--- NOTE | 2022-09-24 13:31 | MM_ITS ---
PROCEDURE INFORMATION: Exam: MG Bilateral Screening 3D Mammography Exam date and time: 09/24/2022 1:29 PM Age: 57 years old Clinical indication: Screening examination TECHNIQUE: Imaging protocol: Bilateral Screening tomosynthesis and 2D mammography including computer-aided detection (CAD) when performed. COMPARISON: 1. MG MM DIG MAMM DX UNILAT LT CAD 05/05/2021 2:24 PM 2. MG MM DIG SCREENING MAMM BI W/CAD 04/10/2021 10:29 AM FINDINGS: MAMMOGRAPHY: Breast composition: The breasts are almost entirely fatty. Mass: None. Architectural distortion: None. Calcifications: No suspicious calcifications. Asymmetric density: None. Skin thickening: None. Axillary adenopathy: None. IMPRESSION: No mammographic evidence of malignancy. Annual screening is recommended unless otherwise clinically indicated. ASSESSMENT: BI-RADS Category 1: Negative
== END ==
PROVIDERS: PCP Emergency Medicine; Visit Provider Nurse Practitioner Family
DX: Z12.31 Encounter for screening mammogram for malignant neoplasm of breast (principal)
CPT/HCPCS: 77063; 77067

== ENCOUNTER 2022-09-28 10:28 | Day surgery (SDC) | payer OTHER, SELFPAY ==
[2022-09-28 10:36] VITALS: BP 138/83; PULSE 81; RESP 18; TEMP 36.6; O2SAT 100; BMI 33.2
[2022-09-28 10:42] VITALS: BP 141/70; PULSE 75; RESP 18; O2SAT 100
--- NOTE | 2022-09-28 10:44 | EXP.PAIN.PRO ---
Procedure Date: 09/28/22 Time: 10:40 Anesthesiologist:: Lonnie Cano CRNA Complications:: None Pre-procedure Diagnosis:: Left sacroiliitis Post-procedure Diagnosis:: Same Indications for Procedure:: Patient is a very pleasant 57-year-old female that comes our clinic today for left sacroiliac joint injection. Patient has extreme point tenderness over the left sacroiliac joint area. Patient complains of pain with ambulation, sitting, standing for any length of time. She has difficulty transitioning from sitting to standing. She rates her pain 7/10. Procedure Details:: Procedure: Left sacroiliac injection under fluoroscopy Informed consent was obtained and the risk and benefits of the procedure were explained to the patient.~ The patient was taken to the procedure room and noninvasive monitors were placed including noninvasive blood pressure cuff and pulse oximeter.~ The patient was placed prone on the procedure table.~ The~ left hip was cleansed using Betadine as a cleansing solution.~ C-arm fluorosocpy was used to view the left SI joint.~ The skin and subcutaneous tissues were anesthetized using Lidocaine 1.5% and a 25-gauge needle.~ After this, a 22-gauge spinal needle was inserted under fluoroscopic guidance into the inferior aspect of the left SI joint.~ Omnipaque dye was injected and a good spread was seen throughout the joint.~ After this, approximately 5 mL of bupivacaine 0.25% and Depo-Medrol 40 mg was incrementally injected into the sacroiliac joint.~ The patient tolerated the procedure well with no complications.~ The patient was observed in the Pain Clinic for a period of 30-45 minutes, then discharged home neurologically intact.~ Plan and Disposition:: Patient was discharged without incident.
== END 2022-09-28 10:42 | disposition home or self-care (01) ==
PROVIDERS: PCP Emergency Medicine; Visit Provider Nurse Anesthetist, Certified Registered
DX: M46.1 Sacroiliitis, not elsewhere classified (principal)
CPT/HCPCS: 27096; G0260; J1040

== ENCOUNTER → 2022-10-13 10:46 | Outpatient (POV) | payer OTHER, SELFPAY ==
--- NOTE | 2022-10-13 11:14 | EXP.PAIN.SOA ---
[facility] Pain Management SOAP Note Subjective:: Patient is a pleasant 57-year-old female who presents today for follow-up of left SI injection on 09/28/2022. We are currently treating the patient for degenerative disc disease of lumbar spine with lumbar radiculopathy symptoms, bilateral hip pain, sacroiliitis. Today she rates her pain an 8 out of 10. She states that she only got some improvement while the numbing medication lasted. She states following that she had no additional relief. She does continue to have significant pain in her low back that she describes as an aching, throbbing sensation that is worse with increased activity. Patient states that she was recently started on Wellbutrin and at our last visit we did start her on Celebrex 200 mg daily. Patient states that following the addition of these medication she has noticed more muscle twitching and is unsure if it is because of the new medications. Patient is currently managed with gabapentin 400 mg twice a day from Dr. Abraham's office and cyclobenzaprine 10 mg 3 times a day from our office. Patient denies any side effects from these medications. Patient is also prescribed compounding cream however she states that she has not tried it for the neuropathy into her feet. Patient has also had recent physical therapy however she had to stop this due to aggravating symptoms and worsening pain. Her Nixon is [phone]. Its been reviewed and appropriate. Review of Systems: General: No recent weight changes, no fever, no sleep disturbances Respiratory: No cough, no shortness of air, no recurring pulmonary infections Cardiovascular/peripheral vascular: No chest pain, no palpitations, no edema, no shortness of breath Gastrointestinal: No new onset incontinence, normal bowel movements reported Genitourinary: No new onset incontinence Musculoskeletal: Low back pain Psychiatric: [Normal mood/affect] Neurological: [Denies weakness in extremities], [denies balance issues] Objective:: Physical Exam: General: Alert and oriented x3, no acute distress, pleasant and cooperative Lungs: Respirations even and unlabored, symmetrical chest expansion Eyes: PERRL Musculoskeletal: Flexion and extension of lumbar [spine] somewhat guarded secondary to pain, [antalgic gait noted] Neurological: Speech clear, no gross sensory deficit Assessment:: Degenerative disc disease of lumbar spine with lumbar radiculopathy symptoms, bilateral hip pain, sacroiliitis, chronic pain Plan:: Patient continues to experience significant pain in her low back with limited range of motion. I have counseled the patient to discontinue the Celebrex and I will send in a prescription of ibuprofen 800 mg 3 times daily and also refill her cyclobenzaprine 10 mg 3 times a day. I have discussed with the patient that in the future that she may benefit from intrathecal pain pump trial. Risk and benefits were discussed with patient and educational handouts given during today's visit. We will discuss this at future visits. Patient will return to clinic in 1 month for reevaluation of symptoms and plan of care. Patient has been instructed to contact the clinic with any concerns before the next appointment. Dr. Padilla has reviewed this note and agrees with this plan of care. This note was dictated using voice recognition software and make contain errors or omissions. [facility] Disclaimer: The information contained in this section may have been updated after the patient was seen, as this information can be updated by other users. Medical History HLD (hyperlipidemia) Hypothyroid Left hip pain Low Back Pain Family History Other No significant family history Social History Smoking Status: Never smoker alcohol intake: never substance use type: denies use current occupational status
[2022-10-13 12:49] VITALS: BP 128/85; PULSE 93; RESP 18; O2SAT 97; BMI 34.0
== END | disposition home or self-care (01) ==
PROVIDERS: PCP Nurse Practitioner Family; Visit Provider Nurse Practitioner Family
DX: M51.16 Intervertebral disc disorders with radiculopathy, lumbar region (principal); M25.551 Pain in right hip; M25.552 Pain in left hip; M46.1 Sacroiliitis, not elsewhere classified; G89.29 Other chronic pain
CPT/HCPCS: 99212; G0463

== ENCOUNTER → 2022-11-10 10:06 | Outpatient (POV) | payer OTHER, SELFPAY ==
--- NOTE | 2022-11-10 11:04 | EXP.PAIN.SOA ---
[facility] Pain Management SOAP Note Subjective:: Patient is a pleasant 57-year-old female who presents today for follow-up and medication refill. We are currently treating the patient for degenerative disc disease of the lumbar spine with lumbar radiculopathy symptoms, bilateral hip pain, sacroiliitis. Today she rates her pain an 8 out of 10. Patient denies any new trauma or injury. She denies any change to location or type of pain she experiences. She does state that she continues to have pain on a daily basis that does interfere with her ability to perform activities of daily life such as cooking and cleaning or even simple ambulation. Patient states the ibuprofen that was sent in at our last visit did not really add much improvement. She states that the cyclobenzaprine 10 mg 3 times a day did help some. She is also prescribed gabapentin 400 mg twice a day from Dr. Mikhail schneider's office however she states that she does not notice significant improvement. patient does have a family history of cardiac issues and she does see a cane pusher every so often as a precaution. She is also prescribed compounding cream. At previous visits we did discuss the possibility of a intrathecal pain pump trial or spinal cord stimulator trial however at this time she is not interested. Her Nixon is [phone]. Its been reviewed and appropriate. Review of Systems: General: No recent weight changes, no fever, no sleep disturbances Respiratory: No cough, no shortness of air, no recurring pulmonary infections Cardiovascular/peripheral vascular: No chest pain, no palpitations, no edema, no shortness of breath Gastrointestinal: No new onset incontinence, normal bowel movements reported Genitourinary: No new onset incontinence Musculoskeletal: Low back pain, leg pain Psychiatric: [Normal mood/affect] Neurological: [Denies weakness in extremities], [denies balance issues] Objective:: Physical Exam: General: Alert and oriented x3, no acute distress, pleasant and cooperative Lungs: Respirations even and unlabored, symmetrical chest expansion Eyes: PERRL Musculoskeletal: Flexion and extension of lumbar [spine] somewhat guarded secondary to pain, [antalgic gait noted] Neurological: Speech clear, no gross sensory deficit Assessment:: Degenerative disc disease of lumbar spine with lumbar radiculopathy symptoms, bilateral hip pain, sacroiliitis Plan:: I will refill the patient's cyclobenzaprine 10 mg 3 times daily and send in a new prescription of amitriptyline 10 mg daily and provide a 1 month supply of these medications. Patient will return to clinic in 1 month for reevaluation of symptoms and medication refill. Patient has been instructed to contact the clinic with any concerns before the next appointment. Dr. Padilla has reviewed this note and agrees with this plan of care. This note was dictated using voice recognition software and make contain errors or omissions. [facility] Disclaimer: The information contained in this section may have been updated after the patient was seen, as this information can be updated by other users. Medical History HLD (hyperlipidemia) Hypothyroid Left hip pain Low Back Pain Family History Other No significant family history Social History Smoking Status: Never smoker alcohol intake: never substance use type: denies use current occupational status: employed Travel in the last 8 weeks: None household members: family housing: house current occupation: [employer] current occupational exposures/hazards: No caffeine: Yes
[2022-11-10 13:05] VITALS: BP 149/87; PULSE 80; RESP 18; O2SAT 98; BMI 34.0
== END | disposition home or self-care (01) ==
PROVIDERS: PCP Nurse Practitioner Family; Visit Provider Nurse Practitioner Family
DX: M51.16 Intervertebral disc disorders with radiculopathy, lumbar region (principal); M25.551 Pain in right hip; M25.552 Pain in left hip; M46.1 Sacroiliitis, not elsewhere classified
CPT/HCPCS: 99212; G0463

== ENCOUNTER → 2022-12-09 11:14 | Outpatient (POV) | payer OTHER, SELFPAY ==
--- NOTE | 2022-12-09 11:40 | EXP.PAIN.SOA ---
[facility] Pain Management SOAP Note Subjective:: Patient is a pleasant 57-year-old female who presents today for follow-up and medication refill. We are currently treating the patient for degenerative disc disease of the lumbar spine with lumbar radiculopathy symptoms, bilateral hip pain, sacroiliitis. Today she rates her pain an 9 out of 10. Patient denies any new trauma or injury. She denies any change to location or type of pain she experiences. From our last visit she does state that the new medication has helped. She does state though that she is still having low back pain that is radiating into both her lower extremities. She describes this as a aching, throbbing sensation that is worse with increased activity. She does state that the pain is often flared up by her working. Her pain does interfere with her ability to perform activities of daily life such as cooking and cleaning or even simple ambulation. She is currently prescribed ibuprofen 800 mg 3 times daily, cyclobenzaprine 10 mg 3 times a day and amitriptyline 10 mg daily. She denies any side effects from this medication. She is also prescribed gabapentin 400 mg 3 times a day from an outside provider. Her Nixon is [phone]. Its been reviewed and appropriate. Review of Systems: General: No recent weight changes, no fever, no sleep disturbances Respiratory: No cough, no shortness of air, no recurring pulmonary infections Cardiovascular/peripheral vascular: No chest pain, no palpitations, no edema, no shortness of breath Gastrointestinal: No new onset incontinence, normal bowel movements reported Genitourinary: No new onset incontinence Musculoskeletal: Low back pain, bilateral leg pain Psychiatric: [Normal mood/affect] Neurological: [Denies weakness in extremities], [denies balance issues] Objective:: Physical Exam: General: Alert and oriented x3, no acute distress, pleasant and cooperative Lungs: Respirations even and unlabored, symmetrical chest expansion Eyes: PERRL Musculoskeletal: Flexion and extension of lumbar [spine] somewhat guarded secondary to pain, [antalgic gait noted] Neurological: Speech clear, no gross sensory deficit Assessment:: Degenerative disc disease of lumbar spine with lumbar radiculopathy symptoms, bilateral hip pain, sacroiliitis Plan:: Patient is experiencing significant pain in her low back and legs with limited range of motion. I have discussed with the patient that she may benefit from a lumbar epidural steroid injection. Risk and benefits were explained to the patient and she would like to proceed forward with this plan of care. Patient has had previous lumbar epidurals that did provide significant improvement of more than 50%. Patient is not on any blood thinners. I will refill the patient's ibuprofen 800 mg, cyclobenzaprine 10 mg 3 times daily and amitriptyline 10 mg daily and provide a 3-month supply of this medication. Patient will be scheduled for an LESI L4-L5. Patient has been instructed to contact the clinic with any concerns before the next appointment. Dr. Padilla has reviewed this note and agrees with this plan of care. This note was dictated using voice recognition software and make contain errors or omissions. [facility] Disclaimer: The information contained in this section may have been updated after the patient was seen, as this information can be updated by other users. Medical History HLD (hyperlipidemia) Hypothyroid Left hip pain Low Back Pain Family History Other No significant family history Social History Smoking Status: Never smoker alcohol intake: never substance use type: denies use current occupational status: employed Travel in the last 8 weeks: None household members: family housing: house current occupation: [employer] current occupati
[2022-12-09 12:00] VITALS: BP 152/85; PULSE 83; RESP 18; O2SAT 97; BMI 33.2
== END | disposition home or self-care (01) ==
PROVIDERS: PCP Nurse Practitioner Family; Visit Provider Nurse Practitioner Family
DX: M51.16 Intervertebral disc disorders with radiculopathy, lumbar region (principal); M25.551 Pain in right hip; M25.552 Pain in left hip; M46.1 Sacroiliitis, not elsewhere classified
CPT/HCPCS: 99212; G0463

== ENCOUNTER 2022-12-21 08:59 | Day surgery (SDC) | payer OTHER, SELFPAY ==
[2022-12-21 09:07] VITALS: BP 132/76; PULSE 78; RESP 16; TEMP 36.3; O2SAT 99; BMI 33.2
[2022-12-21 09:13] VITALS: BP 146/91; PULSE 80; RESP 18; O2SAT 97
[2022-12-21 09:14] VITALS: BP 146/91; PULSE 80; RESP 18; O2SAT 97
[2022-12-21 09:21] VITALS: BP 136/85; PULSE 86; RESP 18; O2SAT 99
--- NOTE | 2022-12-21 09:31 | EXP.PAIN.PRO ---
Procedure Date: 12/21/22 Time: 09:05 Anesthesiologist:: Lonnie Cano CRNA Complications:: None Pre-procedure Diagnosis:: Degenerative disc lumbar spine multilevels. Lumbar radiculopathy. Post-procedure Diagnosis:: Same. Indications for Procedure:: Patient is a very pleasant 57-year-old female comes our clinic today for a lumbar epidural steroid injection at the L4-5 level. Patient complains of low back pain as well as bilateral hip and leg radicular symptoms. She rates her pain 7/10. Patient has responded very well to previous lumbar epidural steroid injection at the same level. Procedure Details:: Procedure: Lumbar epidural steroid injection under fluoroscopy Informed consent was obtained and the risks and benefits of the procedure were explained to the patient. The patient was taken to the procedure room and noninvasive monitors placed, including noninvasive blood pressure cuff and pulse oximeter. The back was viewed using C-arm Fluoroscopy and prepped using Chloraprep as a cleansing solution and the L4-L5 interspace was palpated. Skin and subcutaneous tissues were anesthetized using lidocaine 1.5% and a 25-gauge needle. After this, an 18-gauge Touhy epidural needle was placed into the L4-L5 interspace and advanced using fluoroscopic guidance and loss of resistance to air until the epidural space was encountered. After confirmation of needle placement in the epidural space, with dye, a solution containing normal saline, 3 mL and Depo-Medrol 80 mg were incrementally injected into the lumbar epidural space. The patient tolerated the procedure well with no complications. The patient was observed in the Pain Clinic and then discharged home neurologically intact. Plan and Disposition:: Patient was discharged without incident.
== END 2022-12-21 09:21 | disposition home or self-care (01) ==
LOC: SC.PAINP 08:59
PROVIDERS: PCP Nurse Practitioner Family; Visit Provider Nurse Anesthetist, Certified Registered
DX: M51.16 Intervertebral disc disorders with radiculopathy, lumbar region (principal)
CPT/HCPCS: 62323; J1040

== ENCOUNTER → 2023-04-01 09:26 | Outpatient (CLI) | payer OTHER, SELFPAY | PROVIDERS: PCP Nurse Practitioner Family; Visit Provider Nurse Practitioner Family | DX: N39.0 Urinary tract infection, site not specified (principal); B96.89 Other specified bacterial agents as the cause of diseases classified elsewhere | CPT/HCPCS: 87086 ==

== ENCOUNTER 2023-04-29 09:32 | Outpatient (CLI) | payer OTHER, SELFPAY ==
[2023-04-29 18:57] LABS: Basophils # 0.1 K/mm3 (0-0.2); Basophils % 1.6 % (0.1-2.0); Eosinophils # 0.5 K/mm3 (0.0-0.4); Eosinophils % 7.1 % (0.1-12.0); Hematocrit 41.2 % (37.0-47.0); Hemoglobin 13.9 g/dL (12.2-16.2); Lymphocytes # 2.3 K/mm3 (0.7-4.5); Lymphocytes % 30.8 % (10-50); Mean Corpuscular HGB Conc 33.7 g/dL (31.8-35.4); Mean Corpuscular Volume 89.2 fl (81-99); Mean Platelet Volume 9.6 fl (7.4-10.4); Monocytes # 0.4 K/mm3 (0.1-1.0); Monocytes % 4.9 % (1.7-9.3); Neutrophils # 4.1 K/mm3 (1.8-7.8); Neutrophils % 55.6 % (37.0-80.0); Platelet Count 239 K/mm3 (142-424); Red Blood Count 4.62 M/mm3 (4.20-5.40); Red Cell Distribution Width 14.1 % (11.5-17.5); White Blood Count 7.3 K/mm3 (4.8-10.8)
[2023-04-29 19:04] LABS: Alanine Aminotransferase 41 U/L (12-78); Albumin/Globulin Ratio 1.7 (1.1-1.8); Alkaline Phosphatase 79 U/L (38-126); Anion Gap 7.9 mEq/L (5-15); Aspartate Amino Transferase 34 U/L (14-36); Bilirubin,Total 0.9 mg/dl (0.2-1.3); Blood Urea Nitrogen 16 mg/dl (7-17); Calcium 8.6 mg/dl (8.4-10.2); Carbon Dioxide 29 mmol/L (22.0-30.0); Chloride 103 mmol/L (98-107); Chol/HDL Ratio 3.9 (1-3.5); Cholesterol 152 mg/dl (140-200); Estimated Glomerular Filt Rate 74 ml/min (>60); GFR (African American) 89 ML/MIN (>60); Globulin 2.4 g/dL (1.3-3.2); Glucose 121 mg/dl (74-100); HDL Cholesterol 39 mg/dl (40-60); Potassium 3.9 mmoL/L (3.5-5.1); Sodium 136 mmol/L (136-145); Total Protein,Serum 6.4 g/dl (6.3-8.2); Triglycerides 86 mg/dl (30-150); VLDL Cholesterol 17 mg/dL (0-40)
[2023-04-29 19:16] LABS: Direct LDL Cholesterol 94.85 mg/dL (100-129)
[2023-04-29 19:20] LABS: 25-OH Vitamin D, Total 19.6 ng/mL (30-100)
[2023-04-29 20:24] LABS: Hemoglobin A1C 5.6 % (4.0-6.0)
== END 2023-04-29 23:59 ==
LOC: LAB.DROPOF 04-30 09:32
PROVIDERS: PCP Nurse Practitioner Family; Visit Provider Nurse Practitioner Family
DX: E55.9 Vitamin D deficiency, unspecified (principal); I10 Essential (primary) hypertension; E11.9 Type 2 diabetes mellitus without complications; Z79.85 Long-term (current) use of injectable non-insulin antidiabetic drugs; Z68.34 Body mass index [BMI] 34.0-34.9, adult
CPT/HCPCS: 80053; 80061; 82306; 83036; 84443; 85025

== ENCOUNTER 2023-07-21 14:31 | Outpatient (CLI) | payer OTHER, SELFPAY ==
--- NOTE | 2023-07-21 14:36 | XR_ITS ---
FINAL REPORT CLINICAL HISTORY: Chronic NECK PAIN COMPARISON: None FINDINGS: No fracture is present. Alignment is normal. No prevertebral soft tissue swelling seen. There is moderate diffuse degenerative changes with spurring most pronounced at C6-C7. IMPRESSION: Degenerative disc disease. Reviewed, Interpreted and Dictated by Dayne Jimenez MD Transcribed by AQUILES Torrez Authenticated and [facility]
== END 2023-07-21 23:59 ==
PROVIDERS: PCP Nurse Practitioner Family; Visit Provider Nurse Practitioner Family
DX: M54.2 Cervicalgia (principal)
CPT/HCPCS: 72040

== ENCOUNTER 2023-09-07 07:18 | Outpatient (CLI) | payer OTHER, SELFPAY ==
--- NOTE | 2023-09-07 07:25 | MR_ITS ---
FINAL REPORT CLINICAL HISTORY: PAIN IN RIGHT ARM, thumb, 3rd digit headaches FINDINGS: Multiplanar MR imaging of the cervical spine was performed without contrast. On the sagittal T2-weighted images, disc degeneration is seen at multiple levels. There is no evidence of fracture. The vertebral alignment is normal. The cervical spinal cord has an unremarkable appearance without evidence of mass, edema or syrinx. No significant canal stenosis is identified. The cervicomedullary junction is normal. C2-3: There is no significant canal stenosis or neural foraminal narrowing. C3-4: An annular disc bulge is present with mild left neural foraminal narrowing. C4-5: An annular disc bulge is present with mild right neural foraminal narrowing. C5-6: An annular disc bulge is present. There is a right foraminal disc protrusion versus extrusion resulting in right C6 nerve root impingement. There is severe right and mild left neural foraminal narrowing. There is mild central canal stenosis with an AP diameter of the thecal sac of 9 mm. C6-7: Disc osteophyte complex is present with severe bilateral neural foraminal narrowing. C7-T1: There is no significant canal stenosis or neural foraminal narrowing. IMPRESSION: Multilevel degenerative disc disease and spondylosis, worst at C5-6 as detailed above. Reviewed, Interpreted and Dictated by Raj Lechuga III, MD Transcribed by Amanda Brunner Authenticated and [facility]
== END 2023-09-07 23:59 | disposition home or self-care (01) ==
LOC: RAD 07:19
PROVIDERS: PCP Nurse Practitioner Family; Visit Provider Nurse Practitioner Family
DX: M79.601 Pain in right arm (principal)
CPT/HCPCS: 72141

== ENCOUNTER 2023-12-21 10:13 | Outpatient (POV) | payer OTHER, SELFPAY ==
--- NOTE | 2023-12-21 10:53 | A.OFFVIS_ITS ---
[facility] Disclaimer: The information contained in this section may have been updated after the patient was seen, as this information can be updated by other users. Medical History HLD (hyperlipidemia) Hypothyroid Left hip pain Low Back Pain Family History Other No significant family history Social History Smoking Status: Never smoker alcohol intake: never substance use type: denies use current occupational status: employed Travel in the last 8 weeks: None household members: family housing: house current occupation: [employer] current occupational exposures/hazards: No caffeine: Yes PM Subjective & Objective Subjective Subjective:: Patient is a pleasant 57-year-old female who presents today for follow-up and medication refill. We are currently treating the patient for degenerative disc disease of the lumbar spine with lumbar radiculopathy symptoms, bilateral hip pain, sacroiliitis. Today she rates her pain an 10 out of 10. Patient denies any new trauma or injury. She does state that the injection that she had of the lumbar epidural L4-L5 on 12/21/2022 did provide significant relief of at least 50% however it was very temporary and she is back to her baseline. She also states that she has been experiencing more neck related pain that radiates into her upper right extremity with numbness and tingling. Patient does state that she has had recent MRI imaging that did show she had degenerative disc she states her pain is constant and interferes with her ability to perform activities of daily life such as cooking and cleaning or even simple ambulation. She is currently prescribed ibuprofen 800 mg 3 times daily, cyclobenzaprine 10 mg 3 times a day and amitriptyline 10 mg daily. She does feel like the ibuprofen has been making her more nauseous lately. She is also prescribed gabapentin 600 mg 2 times a day from an outside provider. She does state that it is her provider did mention about increasing the gabapentin however was stating to ask our office. Her Nixon has been reviewed and appropriate. Review of Systems: General: No recent weight changes, no fever, no sleep disturbances Respiratory: No cough, no shortness of air, no recurring pulmonary infections Cardiovascular/peripheral vascular: No chest pain, no palpitations, no edema, no shortness of breath Gastrointestinal: No new onset incontinence, normal bowel movements reported Genitourinary: No new onset incontinence Musculoskeletal: Low back pain, bilateral leg pain, neck pain, right arm pain Psychiatric: [Normal mood/affect] Neurological: [Denies weakness in extremities], [denies balance issues] Pain at rest (0-10 scale): 10 Objective Objective:: Physical Exam: General: Alert and oriented x3, no acute distress, pleasant and cooperative Lungs: Respirations even and unlabored, symmetrical chest expansion Eyes: PERRL Musculoskeletal: Flexion and extension of cervical [spine] somewhat guarded secondary to pain, [antalgic gait noted] Neurological: Speech clear, no gross sensory deficit FINDINGS: Multiplanar MR imaging of the cervical spine was performed without contrast. On the sagittal T2-weighted images, disc degeneration is seen at multiple levels. There is no evidence of fracture. The vertebral alignment is normal. The cervical spinal cord has an unremarkable appearance without evidence of mass, edema or syrinx. No significant canal stenosis is identified. The cervicomedullary junction is normal. C2-3: There is no significant canal stenosis or neural foraminal narrowing. C3-4: An annular disc bulge is present with mild left neural foraminal narrowing. C4-5: An annular disc bulge is present with mild right neural foraminal narrowing. C5-6: An annular disc bulge is present. There is a right foraminal disc protrusion versus extrusion resulting in right C6 nerve root impingement. There is severe right and mild left neural foraminal narrowing. There is mild central canal stenosis with an AP diameter of the thecal sac of 9 mm. C6-7: Disc osteophyte complex is present with severe bilateral neural foraminal narrowing. C7-T1: There is no significant canal stenosis or neural foraminal narrowing. IMPRESSION: Multilevel degenerative disc disease and spondylosis, worst at C5-6 as detailed above. Reviewed, Interpreted and Dictated by Raj Lechuga III, MD Transcribed by Amanda Brunner Authenticated and [facility] Has patient had previous pain injection?: Yes Percent improvement in pain since last injection: 50% Conservative treatment options previously tried: Home exercise plan Length of treatment: Longer than 6 weeks Meds Home Medications and Allergies Home Medications ?Medication ?Instructions ?Recorded ?Confirmed ?Type blood-glucose meter 06/26/21 04/29/23 History flash glucose sensor 06/26/21 04/29/23 History lancets 33 gauge #100 ea 02/20/22 04/29/23 Rx ondansetron 4 mg disintegrating 4 mg PO Q8H PRN nausea and 05/20/22 04/29/23 Rx tablet vomiting #30 tabs cyclobenzaprine 10 mg tablet 10 mg PO TID Pain #90 tabs 12/09/22 04/29/23 Rx simvastatin 5 mg tablet See Rx Instructions .Route 03/01/23 04/29/23 Rx .COMPLEX #90 tabs semaglutide 0.25 mg or 0.5 mg (2 See Rx Instructions .Route 04/01/23 04/29/23 Rx mg/3 mL) subcutaneous pen injector .COMPLEX . #3 mL (Ozempic) gabapentin 400 mg capsule 400 mg PO TID Pain 30 days #90 caps 04/03/23 04/29/23 Rx amantadine HCl 100 mg tablet mg PO 04/29/23 04/29/23 History omeprazole 20 mg capsule,delayed mg PO 04/29/23 04/29/23 History release cholecalciferol (vitamin D3) 1,250 1,250 mcg PO WEEKLY #7 tabs 05/02/23 Rx mcg (50,000 unit) tablet cholecalciferol (vitamin D3) 50 50 mcg PO DAILY #30 caps 05/02/23 Rx mcg (2,000 unit) capsule ibuprofen 800 mg tablet 800 mg PO TID PRN pain #90 tabs 05/02/23 Rx amitriptyline 10 mg tablet See Rx Instructions .Route 06/27/23 Rx .COMPLEX #90 tabs levothyroxine 88 mcg tablet See Rx Instructions .Route 07/15/23 Rx .COMPLEX #90 tabs blood sugar diagnostic (OneTouch #100 ea 08/15/23 Rx Ultra Test strips) lisinopril 20 See Rx Instructions .Route 10/19/23 Rx mg-hydrochlorothiazide 12.5 mg .COMPLEX #90 tabs tablet New Prescriptions to Start Prescriptions: Allergies Allergy/AdvReac Type Severity Reaction Status Date / Time aspirin AdvReac Nausea Verified 04/29/23 10:51 Assessment and Plan *Assessment and plan (1) Degenerative disc disease, cervical: Status: Acute Category: Medical Code(s): M50.30 - Other cervical disc degeneration, unspecified cervical region (2) Cervical radiculopathy: Status: Acute Category: Medical Code(s): M54.12 - Radiculopathy, cervical region (3) Degenerative disc disease at L5-S1 level: Status: Acute Category: Medical Code(s): M51.36 - Other intervertebral disc degeneration, lumbar region (4) Low Back Pain: Status: Acute Qualifiers: Chronicity: chronic Back pain laterality: bilateral Sciatica presence: with sciatica Sciatica laterality: bilateral sciatica Qualified Code(s): M54.42 - Lumbago with sciatica, left side; M54.41 - Lumbago with sciatica, right side; G89.29 - Other chronic pain Category: Medical Code(s): M54.5 - Low back pain Plan Patient is experiencing significant pain throughout her neck and her low back. I did previously discuss to her about the intrathecal pain pump that may be beneficial and she does state today that she would like to proceed forward with this plan of care. Patient has tried and failed conservative therapy including oral medications, heat and ice, topicals, continued at home stretching exercise for longer than 12 weeks. I did also discuss with the patient that she may benefit from cervical epidural however the patient is leery with a neck injection. Patient will be sent for psychological evaluation and if she is deemed an appropriate candidate we will proceed forward with the pain pump trial at a later date. I did discuss with the patient due to the ibuprofen making her nauseous that we could try other anti-inflammatories but she does state that she does have some heart related issues and I have counseled her that for that reason we will not do any additional anti-inflammatories. I will send in a temporary dose of tramadol 50 mg 3 times daily as needed and provide a 2-week supply of this medication. Patient was counseled that we would have to have something in writing from her doctor asking for us to take over her gabapentin since we have never prescribed this medication. Patient acknowledges understanding. Patient will return to clinic in 1 month for reevaluation of symptoms and plan of care. Patient has been instructed to contact the clinic with any concerns before the next appointment. Dr. Padilla has reviewed this note and agrees with this plan of care. This note was dictated using voice recognition software and make contain errors or omissions. All injections are used with Lidocaine or Bupivacaine and Depo Medrol.
[2023-12-21 11:33] VITALS: BP 140/72; PULSE 78; RESP 18; O2SAT 97; BMI 35.5
[2023-12-21 12:45] VITALS: BP 140/72; PULSE 78; RESP 16; O2SAT 97; BMI 35.5
== END 2023-12-21 23:59 | disposition home or self-care (01) ==
PROVIDERS: PCP Nurse Practitioner Family; Visit Provider Nurse Practitioner Family
DX: M50.10 Cervical disc disorder with radiculopathy, unspecified cervical region (principal); M51.36 Other intervertebral disc degeneration, lumbar region; M54.42 Lumbago with sciatica, left side; M54.41 Lumbago with sciatica, right side; G89.29 Other chronic pain; Z73.89 Other problems related to life management difficulty; Z79.899 Other long term (current) drug therapy
CPT/HCPCS: 99212; G0463

== ENCOUNTER 2024-02-13 10:23 | Outpatient (POV) | payer OTHER, SELFPAY ==
[2024-02-13 10:39] VITALS: BP 126/87; PULSE 93; RESP 16; O2SAT 99; BMI 35.5
--- NOTE | 2024-02-13 10:55 | A.OFFVIS_ITS ---
[facility] Disclaimer: The information contained in this section may have been updated after the patient was seen, as this information can be updated by other users. Medical History HLD (hyperlipidemia) Hypothyroid Left hip pain Low Back Pain Family History Other No significant family history Social History Smoking Status: Never smoker alcohol intake: never substance use type: denies use current occupational status: other Travel in the last 8 weeks: None household members: family housing: house current occupation: [employer] current occupational exposures/hazards: No caffeine: Yes PM Subjective & Objective Subjective Subjective:: Patient is a pleasant 58-year-old female who presents today for follow-up of psychological evaluation. Today she rates her pain 8 out of 10. She denies any new trauma or injury. She does states she continues to have chronic neck and back issues. Patient does state the pain interferes with her ability perform activities of daily living such as cooking and cleaning. Patient does state that she would like to proceed forward with the intrathecal pain pump trial. Patient has tried and failed conservative therapy including continued at home stretching exercise for longer than 12 weeks. Patient is prescribed ibuprofen 800 mg from our office however this has really been upsetting her stomach so she is discontinued it. Patient is prescribed Flexeril 10 mg 3 times a day and amitriptyline 10 mg daily along with tramadol 50 mg 3 times a day. She states that this does help. Patient denies any side effects. She does state that she got some letter in the mail from her insurance requiring either a urine drug screen or PSA for the tramadol. Her Nixon has been reviewed and is appropriate. Review of Systems: General: No recent weight changes, no fever, no sleep disturbances Respiratory: No cough, no shortness of air, no recurring pulmonary infections Cardiovascular/peripheral vascular: No chest pain, no palpitations, no edema, no shortness of breath Gastrointestinal: No new onset incontinence, normal bowel movements reported Genitourinary: No new onset incontinence Musculoskeletal: Neck and low back pain Psychiatric: [Normal mood/affect] Neurological: [Denies weakness in extremities], [denies balance issues] Pain at rest (0-10 scale): 8 Objective Objective:: Physical Exam: General: Alert and oriented x3, no acute distress, pleasant and cooperative Lungs: Respirations even and unlabored, symmetrical chest expansion Eyes: PERRL Musculoskeletal: Flexion and extension of lumbar [spine] somewhat guarded secondary to pain, [antalgic gait noted] Neurological: Speech clear, no gross sensory deficit Has patient had previous pain injection?: No Conservative treatment options previously tried: Home exercise plan Length of treatment: Longer than 12 weeks Meds Home Medications and Allergies Home Medications ?Medication ?Instructions ?Recorded ?Confirmed ?Type blood-glucose meter 06/26/21 02/13/24 History flash glucose sensor 06/26/21 02/13/24 History lancets 33 gauge #100 ea 02/20/22 02/13/24 Rx ondansetron 4 mg disintegrating 4 mg PO Q8H PRN nausea and 05/20/22 02/13/24 Rx tablet vomiting #30 tabs cyclobenzaprine 10 mg tablet 10 mg PO TID Pain #90 tabs 12/09/22 02/13/24 Rx simvastatin 5 mg tablet See Rx Instructions .Route 03/01/23 02/13/24 Rx .COMPLEX #90 tabs semaglutide 0.25 mg or 0.5 mg (2 See Rx Instructions .Route 04/01/23 02/13/24 Rx mg/3 mL) subcutaneous pen injector .COMPLEX . #3 mL (Ozempic) gabapentin 400 mg capsule 400 mg PO TID Pain 30 days #90 caps 04/03/23 02/13/24 Rx amantadine HCl 100 mg tablet 100 mg PO DIRECTED . 04/29/23 02/13/24 History omeprazole 20 mg capsule,delayed 20 mg PO DAILY GERD 04/29/23 02/13/24 History release cholecalciferol (vitamin D3) 1,250 1,250 mcg PO WEEKLY #7 tabs 05/02/23 02/13/24 Rx mcg (50,000 unit) tablet cholecalciferol (vitamin D3) 50 50 mcg PO DAILY #30 caps 05/02/23 02/13/24 Rx mcg (2,000 unit) capsule ibuprofen 800 mg tablet 800 mg PO TID PRN pain #90 tabs 05/02/23 02/13/24 Rx amitriptyline 10 mg tablet See Rx Instructions .Route 06/27/23 02/13/24 Rx .COMPLEX #90 tabs levothyroxine 88 mcg tablet See Rx Instructions .Route 07/15/23 02/13/24 Rx .COMPLEX #90 tabs blood sugar diagnostic (OneTouch #100 ea 08/15/23 02/13/24 Rx Ultra Test strips) lisinopril 20 See Rx Instructions .Route 10/19/23 02/13/24 Rx mg-hydrochlorothiazide 12.5 mg .COMPLEX #90 tabs tablet tramadol 50 mg tablet 50 mg PO TID #90 tabs 02/08/24 02/13/24 Rx New Prescriptions to Start Prescriptions: Allergies Allergy/AdvReac Type Severity Reaction Status Date / Time aspirin AdvReac Nausea Verified 04/29/23 10:51 Assessment and Plan *Assessment and plan (1) Lumbar radiculopathy: Status: Acute Category: Medical Code(s): M54.16 - Radiculopathy, lumbar region (2) DDD (degenerative disc disease), lumbar: Status: Acute Category: Medical Code(s): M51.36 - Other intervertebral disc degeneration, lumbar region (3) Thoracic spondylosis: Status: Acute Category: Medical Code(s): M47.814 - Spondylosis without myelopathy or radiculopathy, thoracic region (4) Cervical radiculopathy: Status: Acute Category: Medical Code(s): M54.12 - Radiculopathy, cervical region (5) Degenerative disc disease, cervical: Status: Acute Category: Medical Code(s): M50.30 - Other cervical disc degeneration, unspecified cervical region Plan Patient was reviewed over her psychological evaluation findings and was deemed an appropriate candidate for the device. I did review over risk and benefits of the intrathecal pain pump trial and she would like to proceed forward with this plan of care. Patient has tried and failed conservative therapy including continued at home stretching exercise for longer than 12 weeks. Patient will also do a urine drug screen today in office and we will make sure that we have a prior authorization for the tramadol and send in a 1 month supply of this medication. Patient will be submitted for a intrathecal pain pump trial under fluoroscopy. Risks and benefits of the medication have been explained in detail to the patient. The patient does understand the risk of dependence on the medication when given over a prolonged period. Patient has been advised of risks of oversedation with the prescribed medication. Narcan has been offered to the paitent in the event of oversedation. Patient has been advised that a family member should also be educated regarding administration of Narcan. The patient has been advised to consult with his/her primary care provider and pharmacist regarding drug-drug interaction of medications currently prescribed. Patient has been prescribed a controlled substance after being counseled on the medication, medication safety, and possible side effects. Opioid contract was reviewed and signed by the patient, and that they have agreed to all of the te kevin set forth by our compliance program. Patient has been instructed to contact the clinic with any concerns before the next appointment. Dr. Padilla has reviewed this note and agrees with this plan of care. This note was dictated using voice recognition software and make contain errors or omissions.
[2024-02-13 16:23] LABS: Amphetamine/Metha Screen,Urine Negative ng/ml (<1000); Barbiturates Screen,Urine Negative ng/ml (<200)
[2024-02-13 16:24] LABS: Benzodiazepines Screen,Urine Negative ng/ml (<200)
[2024-02-13 16:26] LABS: Cannabinoid Screen,Urine Negative ng/ml (<50)
[2024-02-13 16:27] LABS: Cocaine Screen,Urine Negative ng/ml (<300); Methadone Screen,Urine Negative ng/ml (<300)
[2024-02-13 16:28] LABS: Opiate Screen,Urine Negative ng/ml (<300); Phencyclidine Screen,Urine Negative ng/ml (<25)
== END 2024-02-13 23:59 | disposition home or self-care (01) ==
PROVIDERS: PCP Nurse Practitioner Family; Visit Provider Nurse Practitioner Family
DX: M51.16 Intervertebral disc disorders with radiculopathy, lumbar region (principal); M47.814 Spondylosis without myelopathy or radiculopathy, thoracic region; M50.10 Cervical disc disorder with radiculopathy, unspecified cervical region; Z73.89 Other problems related to life management difficulty; Z79.899 Other long term (current) drug therapy
CPT/HCPCS: 80307; 80361; 80365; 99212; G0463; G0480

== ENCOUNTER 2024-02-27 08:57 | Outpatient (CLI) | payer OTHER, SELFPAY ==
--- NOTE | 2024-02-27 09:00 | US_ITS ---
FINAL REPORT CLINICAL HISTORY: ELEVATED LIVER ENZYMES COMPARISON: None FINDINGS: There is fatty infiltration of the liver. The portal vein is patent with normal directional flow. The gallbladder is visualized and the wall appears normal. There are no gallstones. Common duct measures 4 mm, within normal limits. The right kidney is unremarkable. The pancreas is partially obscured. IMPRESSION: Fatty liver. Authenticated and [facility]
== END 2024-02-27 23:59 | disposition home or self-care (01) ==
LOC: RAD 08:58
PROVIDERS: PCP Nurse Practitioner Family; Visit Provider Nurse Practitioner Family
DX: R74.01 Elevation of levels of liver transaminase levels (principal)
CPT/HCPCS: 76705

== ENCOUNTER 2024-03-27 12:49 | Outpatient (CLI) | payer OTHER, SELFPAY ==
[2024-03-27 13:28] LABS: Basophils # 0.2 K/mm3 (0-0.2); Basophils % 1.8 % (0.1-2.0); Eosinophils # 0.6 K/mm3 (0.0-0.4); Eosinophils % 6.1 % (0.1-12.0); Hematocrit 46.9 % (37.0-47.0); Hemoglobin 15.4 g/dL (12.2-16.2); Lymphocytes % 28.8 % (10-50); Mean Corpuscular HGB Conc 32.8 g/dL (31.8-35.4); Mean Corpuscular Hemoglobin 28.6 pg (27.0-31.2); Mean Corpuscular Volume 87.1 fl (81-99); Mean Platelet Volume 8.1 fl (7.4-10.4); Monocytes # 0.6 K/mm3 (0.1-1.0); Monocytes % 5.8 % (1.7-9.3); Neutrophils # 5.9 K/mm3 (1.8-7.8); Neutrophils % 57.5 % (37.0-80.0); Platelet Count 306 K/mm3 (142-424); Red Blood Count 5.39 M/mm3 (4.20-5.40); Red Cell Distribution Width 14.1 % (11.5-17.5); White Blood Count 10.3 K/mm3 (4.8-10.8)
[2024-03-27 14:11] LABS: Alanine Aminotransferase 73 U/L (12-78); Albumin Level 4.8 g/dl (3.5-5.0); Albumin/Globulin Ratio 1.9 (1.1-1.8); Alkaline Phosphatase 101 U/L (38-126); Anion Gap 12.9 mEq/L (5-15); Aspartate Amino Transferase 48 U/L (14-36); Bilirubin,Total 1.9 mg/dl (0.2-1.3); Blood Urea Nitrogen 12 mg/dl (7-17); Carbon Dioxide 32 mmol/L (22.0-30.0); Chloride 96 mmol/L (98-107); Estimated Glomerular Filt Rate 57 ml/min (>60); GFR (African American) 69 ML/MIN (>60); Globulin 2.5 g/dL (1.3-3.2); Glucose 117 mg/dl (74-100); Potassium 3.9 mmoL/L (3.5-5.1); Sodium 137 mmol/L (136-145); Total Protein,Serum 7.3 g/dl (6.3-8.2)
[2024-03-30 01:08] LABS: ALT (SGPT) P5P 68 IU/L (0-40); AST (SGOT) P5P 44 IU/L (0-40); Alpha 2-Macroglobulins, Qn 247 mg/dL (110-276); Apolipoprotein A-1 135 mg/dL (116-209); Bilirubin, Total 1.4 mg/dL (0.0-1.2); Cholesterol, Total 166 mg/dL (100-199); Fibrosis Score 0.65 (0.00-0.21); GGT 47 IU/L (0-60); Glucose 120 mg/dL (70-99); Haptoglobin 67 mg/dL (33-346); NASH Score 0.82 (0.00-0.25); Steatosis Score 0.68 (0.00-0.40); Triglycerides 111 mg/dL (0-149)
== END 2024-03-27 23:59 | disposition home or self-care (01) ==
LOC: LAB 12:49
PROVIDERS: PCP Nurse Practitioner Family; Visit Provider Nurse Practitioner Family
DX: K76.0 Fatty (change of) liver, not elsewhere classified (principal)
CPT/HCPCS: 36415; 80053; 85025

== ENCOUNTER 2024-05-31 10:14 | Outpatient (POV) | payer OTHER, SELFPAY ==
[2024-05-31 10:26] VITALS: BP 140/77; PULSE 87; RESP 18; O2SAT 100; BMI 35.5
--- NOTE | 2024-05-31 10:35 | EXP.PAIN.SOA ---
[facility] Disclaimer: The information contained in this section may have been updated after the patient was seen, as this information can be updated by other users. Medical History Hypothyroid HLD (hyperlipidemia) Left hip pain Low Back Pain Family History Other No significant family history Social History Smoking Status: Never smoker alcohol intake: never substance use type: denies use current occupational status: other Travel in the last 8 weeks: None household members: family housing: house current occupation: [employer] current occupational exposures/hazards: No caffeine: Yes Have you lived/traveled outside [place] in past 30 days?: No Contact w/someone who lives/traveled outside US past 30 days?: No Exposure to someone with infectious disease in past 14 days?: No Do you have a fever (greater than 100.4 F or 38 C)?: No Have you tested positive for COVID-19: No Exposed to someone with COVID-19 in past 14 days?: No Do you have a sore throat?: No Do you have a cough?: No Do you have any weakness?: No Do you have any diarrhea?: No Are you experiencing any unusual bleeding?: No Do you have any muscle aches/pain?: No Do you have any abdominal pain?: No Are you experiencing loss of taste or smell?: No PM Subjective & Objective Subjective Subjective:: Patient is a pleasant 58-year-old female who presents today for worsening pain and medication refill. Today she rates her pain a 10 out of 10. Patient states over the last few months she has had increasing pain across her low back and bilateral hips. Patient states that it has progressively worsened and is interfering with her ability perform activities of daily living such as cooking and cleaning. Patient states the pain is constant and that her work actually changed from 8-hour days to 12-hour days and she did initially quit because she knew she would be able to handle those hours. She states that they did end up going back to 8 hours and did contact her and that she did start back in his work the last 2 days but she has been miserable. She has tried [id number] medications along with heat and ice and topicals with minimal relief. Patient is currently prescribed Flexeril 10 mg 3 times a day and tramadol 50 mg 3 times a day. She is requesting refills. Her Nixon has been reviewed and is appropriate. Review of Systems: General: No recent weight changes, no fever, no sleep disturbances Respiratory: No cough, no shortness of air, no recurring pulmonary infections Cardiovascular/peripheral vascular: No chest pain, no palpitations, no edema, no shortness of breath Gastrointestinal: No new onset incontinence, normal bowel movements reported Genitourinary: No new onset incontinence Musculoskeletal: Low back pain, bilateral hip pain Psychiatric: [Normal mood/affect] Neurological: [Denies weakness in extremities], [denies balance issues] Pain at rest (0-10 scale): 10 Objective Objective:: Physical Exam: General: Alert and oriented x3, no acute distress, pleasant and cooperative Lungs: Respirations even and unlabored, symmetrical chest expansion Eyes: PERRL Musculoskeletal: Flexion and extension of lumbar [spine] somewhat guarded secondary to pain, [antalgic gait noted] point tenderness along bilateral SIs with positive bilateral Sofy's, Jose's, Gaenslen's, compression and distraction exam Neurological: Speech clear, no gross sensory deficit Has patient had previous pain injection?: No Conservative treatment options previously tried: Home exercise plan Length of treatment: Longer than 12 weeks Meds Home Medications and Allergies Home Medications ?Medication ?Instructions ?Recorded ?Confirmed ?Type blood-glucose meter 06/26/21 05/31/24 History flash glucose sensor 06/26/21 05/31/24 History lancets 33 gauge #100 ea 02/20/22 05/31/24 Rx ondansetron 4 mg disintegrating 4 mg PO Q8H PRN nausea and 05/20/22 05/31/24 Rx tablet vomiting #30 tabs simvastatin 5 mg tablet See Rx Instructions .Route 03/01/23 05/31/24 Rx .COMPLEX #90 tabs semaglutide 0.25 mg or 0.5 mg (2 See Rx Instructions .Route 04/01/23 05/31/24 Rx mg/3 mL) subcutaneous pen injector .COMPLEX . #3 mL (Ozempic) amantadine HCl 100 mg tablet 100 mg PO DIRECTED . 04/29/23 05/31/24 History cholecalciferol (vitamin D3) 1,250 1,250 mcg PO WEEKLY #7 tabs 05/02/23 05/31/24 Rx mcg (50,000 unit) tablet cholecalciferol (vitamin D3) 50 50 mcg PO DAILY #30 caps 05/02/23 05/31/24 Rx mcg (2,000 unit) capsule ibuprofen 800 mg tablet 800 mg PO TID PRN pain #90 tabs 05/02/23 05/31/24 Rx amitriptyline 10 mg tablet See Rx Instructions .Route 06/27/23 05/31/24 Rx .COMPLEX #90 tabs levothyroxine 88 mcg tablet See Rx Instructions .Route 07/15/23 05/31/24 Rx .COMPLEX #90 tabs blood sugar diagnostic (OneTouch #100 ea 08/15/23 05/31/24 Rx Ultra Test strips) lisinopril 20 See Rx Instructions .Route 10/19/23 05/31/24 Rx mg-hydrochlorothiazide 12.5 mg .COMPLEX #90 tabs tablet duloxetine 30 mg capsule,delayed 30 mg PO DAILY To help my 03/27/24 05/31/24 History release (Cymbalta) neuropathy gabapentin 600 mg tablet 1,200 mg PO BID Neuropathy 03/27/24 05/31/24 History omeprazole 40 mg capsule,delayed 40 mg PO DAILY #90 caps 03/27/24 05/31/24 Rx release cyclobenzaprine 10 mg tablet 10 mg PO TID Pain #90 tabs 05/31/24 Rx prednisone 20 mg tablet 20 mg PO BID #10 tabs 05/31/24 Rx tramadol 50 mg tablet 50 mg PO TID #90 tabs 05/31/24 Rx New Prescriptions to Start Prescriptions: cyclobenzaprine Potts,Court A prednisone Potts,Court A tramadol Potts,Court A Allergies Allergy/AdvReac Type Severity Reaction Status Date / Time No Known Allergies Allergy Verified 03/27/24 11:59 Assessment and Plan *Assessment and plan (1) DDD (degenerative disc disease), lumbar: Status: Acute Category: Medical Code(s): M51.369 - Other intervertebral disc degeneration, lumbar region without mention of lumbar back pain or lower extremity pain (2) Bilateral sacroiliitis: Status: Acute Category: Medical Code(s): M46.1 - Sacroiliitis, not elsewhere classified Plan Patient is experiencing worsening pain along the low back and bilateral hips. They did have limited range of motion of the lumbar spine along with point tenderness along bilateral SI joints and a positive bilateral Sofy's, Jose's, Gaenslen's, compression and distraction exam. I did discuss with the patient that I do believe they would benefit from bilateral SI injections. Risk and benefits were discussed with the patient and they would like to proceed forward with this option. Patient has tried and failed conservative therapy including continued at home stretching exercise for longer than 12 weeks. Patient has had longstanding chronic sacroiliitis in the past with her last injections in September 2023. Patient does state that those injections did provide significant and that while the numbing medication was working but was at least 80% and that it did decrease the severity of that pain for a few months. I will also refill the patient's tramadol and Flexeril and provide a 3-month supply of this medication as well as send in a 5-day dose of prednisone 20 mg twice daily. Patient will be scheduled for bilateral SI injections under fluoroscopy. Patient has been instructed to contact the clinic with any concerns before the next appointment. Dr. Padilla has reviewed this note and agrees with this plan of care. This note was dictated using voice recognition software and make contain errors or omissions. All injections are used with Lidocaine or Bupivacaine and Depo Medrol.
== END 2024-05-31 23:59 | disposition home or self-care (01) ==
PROVIDERS: PCP Nurse Practitioner Family; Visit Provider Nurse Practitioner Family
DX: M51.369 Other intervertebral disc degeneration, lumbar region without mention of lumbar back pain or lower extremity pain (principal); M46.1 Sacroiliitis, not elsewhere classified; Z73.89 Other problems related to life management difficulty; Z79.899 Other long term (current) drug therapy
CPT/HCPCS: 99212; G0463

== ENCOUNTER 2024-06-27 15:06 | Outpatient (POV) | payer OTHER, SELFPAY ==
--- NOTE | 2024-06-27 15:14 | EXP.PAIN.SOA ---
[facility] Disclaimer: The information contained in this section may have been updated after the patient was seen, as this information can be updated by other users. Medical History Hypothyroid HLD (hyperlipidemia) Left hip pain Low Back Pain Family History Other No significant family history Social History Smoking Status: Never smoker alcohol intake: never substance use type: denies use current occupational status: other Travel in the last 8 weeks: None household members: family housing: house current occupation: [employer] current occupational exposures/hazards: No caffeine: Yes PM Subjective & Objective Subjective Subjective:: Patient is a pleasant 58-year-old female who presents today for worsening pain. Patient states that she has not had any new falls or injuries. She states it is the same pain that we have been seeing her for however it is a 10 out of 10. She states the pain is severe and interfering with activities of daily living such as cooking and cleaning. Patient does believe a lot of it is because she is going back working full-time and doing 8-hour days. Patient also states that she has been without her Neurontin for about a week now and so that burning sensation is aggravating her symptoms as well. Patient does have to see her primary care regarding getting refills on this medication. Patient is currently managed from our office with Flexeril 10 mg 3 times a day and tramadol 50 mg 3 times a day. She denies any side effects however feels like it is just not cutting it. At her last visit we did also send in an oral 5-day dose of prednisone 20 mg twice daily. We were trying to get her scheduled for SI injections and did have to do additional documentation for her paperwork to get approval. She states that she did get something in the mail stating that the injections were approved. Her Nixon has been reviewed and is appropriate. Review of Systems: General: No recent weight changes, no fever, no sleep disturbances Respiratory: No cough, no shortness of air, no recurring pulmonary infections Cardiovascular/peripheral vascular: No chest pain, no palpitations, no edema, no shortness of breath Gastrointestinal: No new onset incontinence, normal bowel movements reported Genitourinary: No new onset incontinence Musculoskeletal: Low back pain, bilateral hip pain Psychiatric: [Normal mood/affect] Neurological: [Denies weakness in extremities], [denies balance issues] Pain at rest (0-10 scale): 10 Objective Objective:: Physical Exam: General: Alert and oriented x3, no acute distress, pleasant and cooperative Lungs: Respirations even and unlabored, symmetrical chest expansion Eyes: PERRL Musculoskeletal: Flexion and extension of lumbar [spine] somewhat guarded secondary to pain, [antalgic gait noted] point tenderness along bilateral SIs with positive bilateral Sofy's, Jose's, Gaenslen's, compression and distraction exam Neurological: Speech clear, no gross sensory deficit Has patient had previous pain injection?: No Conservative treatment options previously tried: Home exercise plan Length of treatment: Longer than 12 weeks Meds Home Medications and Allergies Home Medications ?Medication ?Instructions ?Recorded ?Confirmed ?Type blood-glucose meter 06/26/21 05/31/24 History flash glucose sensor 06/26/21 05/31/24 History lancets 33 gauge #100 ea 02/20/22 05/31/24 Rx ondansetron 4 mg disintegrating 4 mg PO Q8H PRN nausea and 05/20/22 05/31/24 Rx tablet vomiting #30 tabs simvastatin 5 mg tablet See Rx Instructions .Route 03/01/23 05/31/24 Rx .COMPLEX #90 tabs semaglutide 0.25 mg or 0.5 mg (2 See Rx Instructions .Route 04/01/23 05/31/24 Rx mg/3 mL) subcutaneous pen injector .COMPLEX . #3 mL (Ozempic) amantadine HCl 100 mg tablet 100 mg PO DIRECTED . 04/29/23 05/31/24 History cholecalciferol (vitamin D3) 1,250 1,250 mcg PO WEEKLY #7 tabs 05/02/23 05/31/24 Rx mcg (50,000 unit) tablet cholecalciferol (vitamin D3) 50 50 mcg PO DAILY #30 caps 05/02/23 05/31/24 Rx mcg (2,000 unit) capsule ibuprofen 800 mg tablet 800 mg PO TID PRN pain #90 tabs 05/02/23 05/31/24 Rx amitriptyline 10 mg tablet See Rx Instructions .Route 06/27/23 05/31/24 Rx .COMPLEX #90 tabs blood sugar diagnostic (OneTouch #100 ea 08/15/23 05/31/24 Rx Ultra Test strips) lisinopril 20 See Rx Instructions .Route 10/19/23 05/31/24 Rx mg-hydrochlorothiazide 12.5 mg .COMPLEX #90 tabs tablet duloxetine 30 mg capsule,delayed 30 mg PO DAILY To help my 03/27/24 05/31/24 History release (Cymbalta) neuropathy gabapentin 600 mg tablet 1,200 mg PO BID Neuropathy 03/27/24 05/31/24 History omeprazole 40 mg capsule,delayed 40 mg PO DAILY #90 caps 03/27/24 05/31/24 Rx release cyclobenzaprine 10 mg tablet 10 mg PO TID Pain #90 tabs 05/31/24 Rx prednisone 20 mg tablet 20 mg PO BID #10 tabs 05/31/24 Rx tramadol 50 mg tablet 50 mg PO TID #90 tabs 05/31/24 Rx levothyroxine 88 mcg tablet See Rx Instructions .Route 06/01/24 Rx .COMPLEX #90 tabs naloxone 4 mg/actuation nasal spray 4 mg intranasal Q2M PRN opioid 06/04/24 Rx overdose #2 ea New Prescriptions to Start Prescriptions: Allergies Allergy/AdvReac Type Severity Reaction Status Date / Time No Known Allergies Allergy Verified 03/27/24 11:59 Assessment and Plan *Assessment and plan (1) Bilateral sacroiliitis: Status: Acute Category: Medical Code(s): M46.1 - Sacroiliitis, not elsewhere classified Plan Patient is experiencing severe pain throughout her low back and bilateral hips. Patient was already being scheduled for bilateral SI injections and has had these in the past that did provide 80% improvement with her last 1 providing 3 months of relief. Patient had her last SI injection in September 2023. Patient is already on muscle relaxers and pain medication and has had recent oral steroids. 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 Patient agrees with this plan of care. Patient will be sent in a 2-week dose of methocarbamol 750 mg 3 times daily and given a tentative date and time for her bilateral SI injections. We will check with the authorization department to confirm that they did also get approval for those injections. Patient has continued conservative treatment including at home stretching exercise for longer than 12 weeks with no additional improvement. Patient has been instructed to contact the clinic with any concerns before the next appointment. Dr. Padilla has reviewed this note and agrees with this plan of care. This note was dictated using voice recognition software and make contain errors or omissions. All injections are used with Lidocaine, Bupivacaine and Depo Medrol. Occasionally urine drug screen is needed to verify patient's compliance with our office pain contract. This is ordered based off specific treatments related to chronic pain with the potential to abuse certain medications.
[2024-06-27 15:18] VITALS: BP 108/70; PULSE 86; RESP 14; O2SAT 100; BMI 35.5
== END 2024-06-27 23:59 | disposition home or self-care (01) ==
PROVIDERS: PCP Nurse Practitioner Family; Visit Provider Nurse Practitioner Family
DX: M46.1 Sacroiliitis, not elsewhere classified (principal); Z73.89 Other problems related to life management difficulty; Z79.899 Other long term (current) drug therapy
CPT/HCPCS: 99212; G0463

== ENCOUNTER 2024-07-17 13:24 | Day surgery (SDC) | payer OTHER, SELFPAY ==
[2024-07-17 13:34] VITALS: BP 134/71; PULSE 75; RESP 16; TEMP 36.8; O2SAT 96; BMI 34.0
--- NOTE | 2024-07-17 13:56 | P.PCN_ITS ---
Procedure Date: 07/17/24 Time: 13:45 Anesthesiologist:: Lonnie Cano CRNA Complications:: None Pre-procedure Diagnosis:: Bilateral sacroiliitis. Post-procedure Diagnosis:: Same. Indications for Procedure:: Patient is a very pleasant 58-year-old female who comes our clinic today for bilateral sacroiliac joint injections of cortisone and local anesthetic. Patient describes low lumbar back pain off the midline bilaterally. Bilateral posterior hip pain. Difficulty transitioning from sitting to standing. She rates her pain 8/10. Procedure Details:: Procedure: Bilateral sacroiliac joint injections under fluoroscopy Informed consent was obtained and the risks and benefits of the procedure were explained to the patient.~ The patient was taken to the procedure room and noninvasive monitors were placed including a noninvasive blood pressure cuff and pulse oximeter.~ The patient was placed prone on the procedure table. Both hips were cleansed using Betadine as a cleansing solution. C-arm fluoroscopy was used to view the right sacroiliac joint.~ The skin and subcutaneous tissues were anesthetized using lidocaine 1.5% and a 25-gauge needle.~ After this, a 22-gauge spinal needle was inserted under fluoroscopic guidance into the inferior aspect of the right sacroiliac joint.~ Omnipaque dye was injected and good spread was seen throughout the joint.~ After this, approximately 5 mL of bupivacaine, 0.25% and Depo-Medrol, 40 mg was incrementally injected into the right sacroiliac joint. We then moved to the left sacroiliac joint.~ The skin and subcutaneous tissues were anesthetized using lidocaine 1.5% and a 25-gauge needle.~ After this, a 22- gauge spinal needle was inserted under fluoroscopic guidance into the inferior aspect of the left sacroiliac joint.~ Omnipaque dye was injected and good spread was seen throughout the joint. After this, approximately 5 mL of bupivacaine, 0.25% and Depo-Medrol, 40 mg was incrementally injected into the left sacroiliac joint.~ The patient tolerated the procedure well with no complications. The patient was observed in the Pain Clinic and then was discharged home neurologically intact. Plan and Disposition:: Patient was discharged without incident.
[2024-07-17 14:09] VITALS: BP 115/69; PULSE 72; RESP 16; O2SAT 95
[2024-07-17 14:56] VITALS: BP 143/67; PULSE 74; RESP 18; O2SAT 97
[2024-07-17] MEDS: BUPIVACAINE 0.25% 10ML INJ 25 MG IJ (14:56)
[2024-07-17] MEDS: LIDOCAINE 1% 5ML PF VIAL 5 ML (14:56)
[2024-07-17 14:57] VITALS: BP 143/67; PULSE 74; RESP 18; O2SAT 97
== END 2024-07-17 14:09 | disposition home or self-care (01) ==
PROVIDERS: PCP Nurse Practitioner Family; Visit Provider Nurse Anesthetist, Certified Registered
DX: M46.1 Sacroiliitis, not elsewhere classified (principal)
CPT/HCPCS: 64450; 77002; G0260; J1010

== ENCOUNTER 2024-08-01 13:32 | Outpatient (POV) | payer OTHER, SELFPAY ==
--- NOTE | 2024-08-01 13:49 | EXP.PAIN.SOA ---
[facility] Disclaimer: The information contained in this section may have been updated after the patient was seen, as this information can be updated by other users. Medical History Hypothyroid HLD (hyperlipidemia) Left hip pain Low Back Pain Family History Other No significant family history Social History Smoking Status: Never smoker alcohol intake: never substance use type: denies use current occupational status: other Travel in the last 8 weeks: None household members: family housing: house current occupation: [employer] current occupational exposures/hazards: No caffeine: Yes PM Subjective & Objective Subjective Subjective:: Patient is a pleasant 59-year-old female who presents today for follow-up of bilateral SI injections 07/17/2024. Today she rates her pain as 7 out of 10. Patient does state that the injections did help and that the pain was not as severe and she was able to move around easier. She also states she feels like she did not have the spasms as significant however it was very temporary and really only provided about 2 days worth before she felt like she was already gone back to her baseline. She denies any new injuries or falls. Patient is currently managed from our office with tramadol 50 mg 3 times a day, methocarbamol 750 mg 3 times a day. She denies any side effects. She does state that the methocarbamol did seem like it did better with her blood pressure. Patient does state that she has been having a lot of lower calf leg spasms. Patient is also managed with gabapentin from her primary care and she did get a letter from our office requesting our office to take over this medication. Her Nixon has been reviewed and is appropriate. Review of Systems: General: No recent weight changes, no fever, no sleep disturbances Respiratory: No cough, no shortness of air, no recurring pulmonary infections Cardiovascular/peripheral vascular: No chest pain, no palpitations, no edema, no shortness of breath Gastrointestinal: No new onset incontinence, normal bowel movements reported Genitourinary: No new onset incontinence Musculoskeletal: Low back pain, leg spasm Psychiatric: [Normal mood/affect] Neurological: [Denies weakness in extremities], [denies balance issues] Pain at rest (0-10 scale): 7 Objective Objective:: Physical Exam: General: Alert and oriented x3, no acute distress, pleasant and cooperative Lungs: Respirations even and unlabored, symmetrical chest expansion Eyes: PERRL Musculoskeletal: Flexion and extension of lumbar [spine] somewhat guarded secondary to pain, [antalgic gait noted] Neurological: Speech clear, no gross sensory deficit Has patient had previous pain injection?: Yes Percent improvement in pain since last injection: Lasted 2 days Conservative treatment options previously tried: Home exercise plan Length of treatment: Longer than 12-week Meds Home Medications and Allergies Home Medications ?Medication ?Instructions ?Recorded ?Confirmed ?Type blood-glucose meter 06/26/21 07/17/24 History flash glucose sensor 06/26/21 07/17/24 History lancets 33 gauge #100 ea 02/20/22 07/17/24 Rx ondansetron 4 mg disintegrating 4 mg PO Q8H PRN nausea and 05/20/22 07/17/24 Rx tablet vomiting #30 tabs simvastatin 5 mg tablet See Rx Instructions .Route 03/01/23 07/17/24 Rx .COMPLEX #90 tabs semaglutide 0.25 mg or 0.5 mg (2 See Rx Instructions .Route 04/01/23 07/17/24 Rx mg/3 mL) subcutaneous pen injector .COMPLEX . #3 mL (Ozempic) amantadine HCl 100 mg tablet 100 mg PO DIRECTED . 04/29/23 07/17/24 History cholecalciferol (vitamin D3) 1,250 1,250 mcg PO WEEKLY #7 tabs 05/02/23 07/17/24 Rx mcg (50,000 unit) tablet cholecalciferol (vitamin D3) 50 50 mcg PO DAILY #30 caps 05/02/23 07/17/24 Rx mcg (2,000 unit) capsule ibuprofen 800 mg tablet 800 mg PO TID PRN pain #90 tabs 05/02/23 07/17/24 Rx amitriptyline 10 mg tablet See Rx Instructions .Route 06/27/23 07/17/24 Rx .COMPLEX #90 tabs blood sugar diagnostic (OneTouch #100 ea 08/15/23 07/17/24 Rx Ultra Test strips) lisinopril 20 See Rx Instructions .Route 06/26/24 03/25/25 Rx mg-hydrochlorothiazide 12.5 mg .COMPLEX #90 tabs tablet duloxetine 30 mg capsule,delayed 30 mg PO DAILY To help my 03/27/24 07/17/24 History release (Cymbalta) neuropathy gabapentin 600 mg tablet 1,200 mg PO BID Neuropathy 03/27/24 07/17/24 History omeprazole 40 mg capsule,delayed 40 mg PO DAILY #90 caps 03/27/24 07/17/24 Rx release cyclobenzaprine 10 mg tablet 10 mg PO TID Pain #90 tabs 05/31/24 07/17/24 Rx prednisone 20 mg tablet 20 mg PO BID #10 tabs 05/31/24 07/17/24 Rx tramadol 50 mg tablet 50 mg PO TID #90 tabs 05/31/24 07/17/24 Rx levothyroxine 88 mcg tablet See Rx Instructions .Route 06/01/24 07/17/24 Rx .COMPLEX #90 tabs naloxone 4 mg/actuation nasal spray 4 mg intranasal Q2M PRN opioid 06/04/24 07/17/24 Rx overdose #2 ea methocarbamol 750 mg tablet See Rx Instructions .Route 07/23/24 Rx .COMPLEX #90 tabs New Prescriptions to Start Prescriptions: Allergies Allergy/AdvReac Type Severity Reaction Status Date / Time No Known Allergies Allergy Verified 03/27/24 11:59 Assessment and Plan *Assessment and plan (1) Bilateral sacroiliitis: Status: Acute Category: Medical Code(s): M46.1 - Sacroiliitis, not elsewhere classified (2) DDD (degenerative disc disease), lumbar: Status: Acute Category: Medical Code(s): M51.369 - Other intervertebral disc degeneration, lumbar region without mention of lumbar back pain or lower extremity pain Plan I did discuss with the patient that I will make sure she has refills on her methocarbamol and tramadol and send in a new prescription of the gabapentin 600 mg twice daily. Patient was counseled that some of her lower calf spasms may be related to restless leg syndrome and that she may benefit from ropinirole 0.25 mg at bedtime. I will send in a 2-week dose of this medication and have her return to clinic in 2 weeks. Patient agrees with this plan of care. Patient has been instructed to contact the clinic with any concerns before the next appointment. Dr. Padilla has reviewed this note and agrees with this plan of care. This note was dictated using voice recognition software and make contain errors or omissions. All injections are used with Lidocaine, Bupivacaine and Depo Medrol. Occasionally urine drug screen is needed to verify patient's compliance with our office pain contract. This is ordered based off specific treatments related to chronic pain with the potential to abuse certain medications.
[2024-08-01 14:09] VITALS: BP 139/80; PULSE 78; RESP 14; O2SAT 100; BMI 34.5
== END 2024-08-01 23:59 | disposition home or self-care (01) ==
PROVIDERS: PCP Nurse Practitioner Family; Visit Provider Nurse Practitioner Family
DX: M46.1 Sacroiliitis, not elsewhere classified (principal); M51.369 Other intervertebral disc degeneration, lumbar region without mention of lumbar back pain or lower extremity pain; Z79.899 Other long term (current) drug therapy
CPT/HCPCS: 99212; G0463

== ENCOUNTER 2024-08-15 15:08 | Outpatient (POV) | payer OTHER, SELFPAY ==
--- NOTE | 2024-08-15 15:11 | EXP.PAIN.SOA ---
[facility] Disclaimer: The information contained in this section may have been updated after the patient was seen, as this information can be updated by other users. Medical History Hypothyroid HLD (hyperlipidemia) Left hip pain Low Back Pain Family History Other No significant family history Social History Smoking Status: Never smoker alcohol intake: never substance use type: denies use current occupational status: other Travel in the last 8 weeks: None household members: family housing: house current occupation: [employer] current occupational exposures/hazards: No caffeine: Yes PM Subjective & Objective Subjective Subjective:: Patient is a pleasant 59-year-old female who presents today for 2-week follow-up. Today she rates her pain a 8 out of 10. She denies any new trauma or injury from her last appointment. She states that she continues to have the chronic back pain that is worse with increased activity. Patient was given ropinirole 0.25 mg at bedtime at her last appointment. Today she does state that this seemed to make no difference on the leg cramps.. Patient is currently managed with tramadol 50 mg 3 times a day and gabapentin 600 mg twice a day. She denies any side effects. Her Nixon has been reviewed and is appropriate. Review of Systems: General: No recent weight changes, no fever, no sleep disturbances Respiratory: No cough, no shortness of air, no recurring pulmonary infections Cardiovascular/peripheral vascular: No chest pain, no palpitations, no edema, no shortness of breath Gastrointestinal: No new onset incontinence, normal bowel movements reported Genitourinary: No new onset incontinence Musculoskeletal: Low back pain Psychiatric: [Normal mood/affect] Neurological: [Denies weakness in extremities], [denies balance issues] Pain at rest (0-10 scale): 8 Objective Objective:: Physical Exam: General: Alert and oriented x3, no acute distress, pleasant and cooperative Lungs: Respirations even and unlabored, symmetrical chest expansion Eyes: PERRL Musculoskeletal: Flexion and extension of lumbar [spine] somewhat guarded secondary to pain, [antalgic gait noted] Neurological: Speech clear, no gross sensory deficit Has patient had previous pain injection?: No Conservative treatment options previously tried: Home exercise plan Length of treatment: Longer than 12 weeks Meds Home Medications and Allergies Home Medications ?Medication ?Instructions ?Recorded ?Confirmed ?Type blood-glucose meter 06/26/21 08/01/24 History flash glucose sensor 06/26/21 08/01/24 History lancets 33 gauge #100 ea 02/20/22 08/01/24 Rx ondansetron 4 mg disintegrating 4 mg PO Q8H PRN nausea and 05/20/22 08/01/24 Rx tablet vomiting #30 tabs simvastatin 5 mg tablet See Rx Instructions .Route 03/01/23 08/01/24 Rx .COMPLEX #90 tabs semaglutide 0.25 mg or 0.5 mg (2 See Rx Instructions .Route 04/01/23 08/01/24 Rx mg/3 mL) subcutaneous pen injector .COMPLEX . #3 mL (Ozempic) amantadine HCl 100 mg tablet 100 mg PO DIRECTED . 04/29/23 08/01/24 History cholecalciferol (vitamin D3) 1,250 1,250 mcg PO WEEKLY #7 tabs 05/02/23 08/01/24 Rx mcg (50,000 unit) tablet cholecalciferol (vitamin D3) 50 50 mcg PO DAILY #30 caps 05/02/23 08/01/24 Rx mcg (2,000 unit) capsule ibuprofen 800 mg tablet 800 mg PO TID PRN pain #90 tabs 05/02/23 08/01/24 Rx amitriptyline 10 mg tablet See Rx Instructions .Route 06/27/23 08/01/24 Rx .COMPLEX #90 tabs blood sugar diagnostic (OneTouch #100 ea 08/15/23 08/01/24 Rx Ultra Test strips) lisinopril 20 See Rx Instructions .Route 10/19/23 08/01/24 Rx mg-hydrochlorothiazide 12.5 mg .COMPLEX #90 tabs tablet duloxetine 30 mg capsule,delayed 30 mg PO DAILY To help my 03/27/24 08/01/24 History release (Cymbalta) neuropathy gabapentin 600 mg tablet 1,200 mg PO BID Neuropathy 03/27/24 08/01/24 History omeprazole 40 mg capsule,delayed 40 mg PO DAILY #90 caps 03/27/24 08/01/24 Rx release cyclobenzaprine 10 mg tablet 10 mg PO TID Pain #90 tabs 05/31/24 08/01/24 Rx prednisone 20 mg tablet 20 mg PO BID #10 tabs 05/31/24 08/01/24 Rx tramadol 50 mg tablet 50 mg PO TID #90 tabs 05/31/24 08/01/24 Rx levothyroxine 88 mcg tablet See Rx Instructions .Route 06/01/24 08/01/24 Rx .COMPLEX #90 tabs naloxone 4 mg/actuation nasal spray 4 mg intranasal Q2M PRN opioid 06/04/24 08/01/24 Rx overdose #2 ea methocarbamol 750 mg tablet See Rx Instructions .Route 07/23/24 08/01/24 Rx .COMPLEX #90 tabs gabapentin 600 mg tablet 600 mg PO BID #60 tabs 08/01/24 Rx ropinirole 0.25 mg tablet 0.25 mg PO HS #14 tabs 08/01/24 Rx New Prescriptions to Start Prescriptions: Allergies Allergy/AdvReac Type Severity Reaction Status Date / Time No Known Allergies Allergy Verified 03/27/24 11:59 Assessment and Plan *Assessment and plan (1) Bilateral sacroiliitis: Status: Acute Category: Medical Code(s): M46.1 - Sacroiliitis, not elsewhere classified (2) Degenerative disc disease, cervical: Status: Acute Category: Medical Code(s): M50.30 - Other cervical disc degeneration, unspecified cervical region (3) Cervical radiculopathy: Status: Acute Category: Medical Code(s): M54.12 - Radiculopathy, cervical region (4) DDD (degenerative disc disease), lumbar: Status: Acute Category: Medical Code(s): M51.369 - Other intervertebral disc degeneration, lumbar region without mention of lumbar back pain or lower extremity pain (5) Lumbar radiculopathy: Status: Acute Category: Medical Code(s): M54.16 - Radiculopathy, lumbar region (6) Chronic back pain: Status: Acute Category: Medical Code(s): M54.9 - Dorsalgia, unspecified; G89.29 - Other chronic pain (7) Chronic pain syndrome: Status: Acute Category: Medical Code(s): G89.4 - Chronic pain syndrome Plan Patient continues to experience chronic pain throughout her back. I did discuss with the patient that in future since the injections had been very temporary that she still may benefit from a intrathecal pain pump trial. Patient does state that she did go to do the psychological evaluation last year and would still like to proceed forward with this option. We did go back and look at the date on this and it was in January 2024 and she was deemed an appropriate candidate. Due to the fact that we are currently at the 6-month ifrah I did public relations counselor the patient that it would no longer be valid by the time we got her in for the trial. I will reorder a new psychological evaluation and if she is deemed an appropriate patient will proceed forward with the pump trial at a later date. Patient agrees with this plan of care. Patient will be scheduled for a 1 month follow-up. Patient has been instructed to contact the clinic with any concerns before the next appointment. Dr. Padilla has reviewed this note and agrees with this plan of care. This note was dictated using voice recognition software and make contain errors or omissions. All injections are used with Lidocaine, Bupivacaine and dexamethasone. Occasionally urine drug screen is needed to verify patient's compliance with our office pain contract. This is ordered based off specific treatments related to chronic pain with the potential to abuse certain medications.
[2024-08-15 15:22] VITALS: BP 123/81; PULSE 74; RESP 16; O2SAT 98; BMI 34.5
== END 2024-08-15 23:59 | disposition home or self-care (01) ==
LOC: SC.PAIN 15:09
PROVIDERS: PCP Nurse Practitioner Family; Visit Provider Nurse Practitioner Family
DX: M46.1 Sacroiliitis, not elsewhere classified (principal); M50.10 Cervical disc disorder with radiculopathy, unspecified cervical region; M51.16 Intervertebral disc disorders with radiculopathy, lumbar region; M54.9 Dorsalgia, unspecified; G89.4 Chronic pain syndrome; Z79.899 Other long term (current) drug therapy
CPT/HCPCS: 99212; G0463

== ENCOUNTER 2024-09-05 11:04 | Outpatient (CLI) | payer OTHER, SELFPAY ==
[2024-09-05 11:32] LABS: Basophils # 0.1 K/mm3 (0-0.2); Basophils % 0.4 % (0.1-2.0); Eosinophils % 0.2 % (0.1-12.0); Hematocrit 40.7 % (37.0-47.0); Hemoglobin 13.3 g/dL (12.2-16.2); Immature Granulocytes # 0.11 10^3uL; Immature Granulocytes % 0.7 %; Lymphocytes # 2.1 K/mm3 (0.7-4.5); Lymphocytes % 13.2 % (10-50); Mean Corpuscular HGB Conc 32.7 g/dL (31.8-35.4); Mean Corpuscular Hemoglobin 28.1 pg (27.0-31.2); Mean Platelet Volume 10.3 fl (7.4-10.4); Monocytes % 6.4 % (1.7-9.3); Neutrophils # 12.5 K/mm3 (1.8-7.8); Neutrophils % 79.1 % (37.0-80.0); Nucleated Red Blood Cells # 0 10^3/uL; Nucleated Red Blood Cells % 0 %; Platelet Count 322 K/mm3 (142-424); Red Blood Count 4.73 M/mm3 (4.20-5.40); Red Cell Distribution Width 13.6 % (11.5-17.5); Red Cell Distribution Width-SD 42.5 fL; White Blood Count 15.7 K/mm3 (4.8-10.8)
[2024-09-05 11:52] LABS: Alanine Aminotransferase 55 U/L (12-78); Albumin Level 4.5 g/dl (3.5-5.0); Alkaline Phosphatase 92 U/L (38-126); Anion Gap 8.3 mEq/L (5-15); Aspartate Amino Transferase 31 U/L (14-36); Bilirubin,Total 1.3 mg/dl (0.2-1.3); Blood Urea Nitrogen 15 mg/dl (7-17); Calcium 9.6 mg/dl (8.4-10.2); Carbon Dioxide 26 mmol/L (22.0-30.0); Chloride 108 mmol/L (98-107); Chol/HDL Ratio 3.8 (1-3.5); Cholesterol 188 mg/dl (140-200); Estimated Glomerular Filt Rate 73 ml/min (>60); GFR (African American) 89 ML/MIN (>60); Globulin 2.2 g/dL (1.3-3.2); Glucose 126 mg/dl (74-100); HDL Cholesterol 49 mg/dl (40-60); Potassium 4.3 mmoL/L (3.5-5.1); Sodium 138 mmol/L (136-145); Total Protein,Serum 6.7 g/dl (6.3-8.2); Triglycerides 100 mg/dl (30-150); VLDL Cholesterol 20 mg/dL (0-40)
[2024-09-05 11:55] LABS: Hemoglobin A1C 5.6 % (4.0-6.0)
[2024-09-05 12:03] LABS: Direct LDL Cholesterol 119.94 mg/dL (100-129)
[2024-09-05 12:09] LABS: Free T4 (Free Thyroxine) 1.07 ng/dl (0.78-2.19)
[2024-09-05 12:24] LABS: Thyroid Stimulating Hormone 1.05 uIU/mL (0.465-4.68)
[2024-09-05 12:43] LABS: Vitamin B12 217 pg/mL (239-931)
== END 2024-09-05 23:59 | disposition home or self-care (01) ==
LOC: LAB 11:05
PROVIDERS: PCP Nurse Practitioner Family; Visit Provider Nurse Practitioner Family
DX: E03.9 Hypothyroidism, unspecified (principal); G62.9 Polyneuropathy, unspecified; E11.9 Type 2 diabetes mellitus without complications; E78.5 Hyperlipidemia, unspecified; Z68.35 Body mass index [BMI] 35.0-35.9, adult; E66.9 Obesity, unspecified
CPT/HCPCS: 36415; 80053; 80061; 82607; 82746; 83036; 84439; 84443; 85025

== ENCOUNTER 2024-09-13 15:15 | Outpatient (POV) | payer OTHER, SELFPAY ==
[2024-09-13 15:21] VITALS: BP 100/74; PULSE 83; RESP 14; O2SAT 97; BMI 34.5
--- NOTE | 2024-09-13 15:27 | A.OFFVIS_ITS ---
[facility] Disclaimer: The information contained in this section may have been updated after the patient was seen, as this information can be updated by other users. Medical History Hypothyroid HLD (hyperlipidemia) Left hip pain Low Back Pain Family History Other No significant family history Social History Smoking Status: Never smoker alcohol intake: never substance use type: denies use current occupational status: other Travel in the last 8 weeks?: None household members: family housing: house current occupation: [employer] current occupational exposures/hazards: No caffeine: Yes PM Subjective & Objective Subjective Subjective:: Patient is a pleasant 59-year-old female who presents today for 1 month follow- up. Today she rates her pain a 7 out of 10. Patient is still having chronic pain anywhere from her mid back that does radiate down to her low back and left hip down that extremity. Patient denies any new falls or injuries. Patient is currently managed with tramadol 50 mg 3 times a day, gabapentin 600 mg twice a day. She denies any side effects. At our last visit she was being sent for surgical evaluation with Dr. Rene Morley. Patient states she has not heard any updates from this office yet. Patient is scheduled for her psychological evaluation next week. Patient does also make mention that she is still having quite a bit of leg cramps. Patient was previously send and ropinirole 0.25 mg at bedtime however she did not necessarily notice a big difference. Patient is interested in any help we may be able to provide. Her Nixon has been reviewed and is appropriate. Review of Systems: General: No recent weight changes, no fever, no sleep disturbances Respiratory: No cough, no shortness of air, no recurring pulmonary infections Cardiovascular/peripheral vascular: No chest pain, no palpitations, no edema, no shortness of breath Gastrointestinal: No new onset incontinence, normal bowel movements reported Genitourinary: No new onset incontinence Musculoskeletal: Mid back pain, low back pain, left hip pain Psychiatric: [Normal mood/affect] Neurological: [Denies weakness in extremities], [denies balance issues] Pain at rest (0-10 scale): 7 Objective Objective:: Physical Exam: General: Alert and oriented x3, no acute distress, pleasant and cooperative Lungs: Respirations even and unlabored, symmetrical chest expansion Eyes: PERRL Musculoskeletal: Flexion and extension of lumbar [spine] somewhat guarded secondary to pain, [antalgic gait noted] Neurological: Speech clear, no gross sensory deficit Has patient had previous pain injection?: No Conservative treatment options previously tried: Home exercise plan Length of treatment: Longer than 12 weeks Meds Home Medications and Allergies Home Medications ?Medication ?Instructions ?Recorded ?Confirmed ?Type blood-glucose meter 06/26/21 09/13/24 History flash glucose sensor 06/26/21 09/13/24 History lancets 33 gauge #100 ea 02/20/22 09/13/24 Rx ondansetron 4 mg disintegrating 4 mg PO Q8H PRN nausea and 05/20/22 09/13/24 Rx tablet vomiting #30 tabs simvastatin 5 mg tablet See Rx Instructions .Route 03/01/23 09/13/24 Rx .COMPLEX #90 tabs semaglutide 0.25 mg or 0.5 mg (2 See Rx Instructions .Route 04/01/23 09/13/24 Rx mg/3 mL) subcutaneous pen injector .COMPLEX . #3 mL (Ozempic) amantadine HCl 100 mg tablet 100 mg PO DIRECTED . 04/29/23 09/13/24 History cholecalciferol (vitamin D3) 1,250 1,250 mcg PO WEEKLY #7 tabs 05/02/23 09/13/24 Rx mcg (50,000 unit) tablet cholecalciferol (vitamin D3) 50 50 mcg PO DAILY #30 caps 05/02/23 09/13/24 Rx mcg (2,000 unit) capsule ibuprofen 800 mg tablet 800 mg PO TID PRN pain #90 tabs 05/02/23 09/13/24 Rx amitriptyline 10 mg tablet See Rx Instructions .Route 06/27/23 09/13/24 Rx .COMPLEX #90 tabs blood sugar diagnostic (OneTouch #100 ea 08/15/23 09/13/24 Rx Ultra Test strips) lisinopril 20 See Rx Instructions .Route 10/19/23 09/13/24 Rx mg-hydrochlorothiazide 12.5 mg .COMPLEX #90 tabs tablet duloxetine 30 mg capsule,delayed 30 mg PO DAILY To help my 03/27/24 09/13/24 History release (Cymbalta) neuropathy gabapentin 600 mg tablet 1,200 mg PO BID Neuropathy 03/27/24 09/13/24 History omeprazole 40 mg capsule,delayed 40 mg PO DAILY #90 caps 03/27/24 09/13/24 Rx release cyclobenzaprine 10 mg tablet 10 mg PO TID Pain #90 tabs 05/31/24 09/13/24 Rx prednisone 20 mg tablet 20 mg PO BID #10 tabs 05/31/24 09/13/24 Rx tramadol 50 mg tablet 50 mg PO TID #90 tabs 05/31/24 09/13/24 Rx naloxone 4 mg/actuation nasal spray 4 mg intranasal Q2M PRN opioid 06/04/24 09/13/24 Rx overdose #2 ea ropinirole 0.25 mg tablet 0.25 mg PO HS #14 tabs 08/01/24 09/13/24 Rx levothyroxine 88 mcg tablet See Rx Instructions .Route 08/26/24 09/13/24 Rx .COMPLEX #30 tabs gabapentin 600 mg tablet 600 mg PO BID #60 tabs 09/05/24 09/13/24 Rx methocarbamol 750 mg tablet See Rx Instructions .Route 09/05/24 09/13/24 Rx .COMPLEX #90 tabs New Prescriptions to Start Prescriptions: Allergies Allergy/AdvReac Type Severity Reaction Status Date / Time No Known Allergies Allergy Verified 03/27/24 11:59 Assessment and Plan *Assessment and plan (1) Chronic back pain: Status: Acute Category: Medical Code(s): M54.9 - Dorsalgia, unspecified; G89.29 - Other chronic pain (2) Chronic pain syndrome: Status: Acute Category: Medical Code(s): G89.4 - Chronic pain syndrome (3) Bilateral sacroiliitis: Status: Acute Category: Medical Code(s): M46.1 - Sacroiliitis, not elsewhere classified (4) DDD (degenerative disc disease), lumbar: Status: Acute Category: Medical Code(s): M51.369 - Other intervertebral disc degeneration, lumbar region without mention of lumbar back pain or lower extremity pain (5) Lumbar radiculopathy: Status: Acute Category: Medical Code(s): M54.16 - Radiculopathy, lumbar region Plan Patient was counseled that we will still plan on proceeding forward with the plan to try the pump trial at a later date. We will follow-up with her after her psychological evaluation to see if she is deemed an appropriate candidate for the pump trial. I will also check into on the referral for surgical evaluation. Patient was counseled that it may be beneficial for us to go to ropinirole 0.5 mg at bedtime. I will send in a 2-week dose of this. We will make sure she has refills on her gabapentin and her tramadol. Patient will return to clinic in 1 month. Risks and benefits of the medication have been explained in detail to the patient. The patient does understand the risk of dependence on the medication when given over a prolonged period. Patient has been advised of risks of oversedation with the prescribed medication. Narcan has been offered to the paitent in the event of oversedation. Patient has been advised that a family member should also be educated regarding administration of Narcan. The patient has been advised to consult with his/her primary care provider and pharmacist regarding drug-drug interaction of medications currently prescribed. Patient has been prescribed a controlled substance after being counseled on the medication, medication safety, and possible side effects. Opioid contract was reviewed and signed by the patient, and that they have agreed to all of the terms set forth by our compliance program. A UDS is needed to verify patient's compliance with our office pain contract. This is ordered based off specific treatments related to chronic pain with the potential to abuse certain medications. Patient has been instructed to contact the clinic with any concerns before the next appointment. Dr. Padilla has reviewed this note and agrees with this plan of care. This note was dictated using voice recognition software and make contain errors or omissions.
== END 2024-09-13 23:59 | disposition home or self-care (01) ==
PROVIDERS: PCP Nurse Practitioner Family; Visit Provider Nurse Practitioner Family
DX: M54.9 Dorsalgia, unspecified (principal); G89.4 Chronic pain syndrome; M46.1 Sacroiliitis, not elsewhere classified; M51.16 Intervertebral disc disorders with radiculopathy, lumbar region; Z79.899 Other long term (current) drug therapy
CPT/HCPCS: 99212; G0463

== ENCOUNTER 2024-10-05 09:52 | Outpatient (CLI) | payer OTHER, SELFPAY ==
--- OUTSIDE RECORDS SUMMARY | 2024-10-05 09:55 | XMS_ITS | Encounter Summary ---
Author Organization Healthcare Address [address] [id number] Care Team Providers Care Senior Architect Name Role Phone Treva Cortes APRN Primary Care Provider [phone] Reason for Referral * Consultation (Routine) - Closed Specialty Diagnoses / Procedures Referred By Contrina t Referred To Contact Endocrinology Diagnoses Diabetes mellitus without complication Multiple endocrine neoplasia (CMS/HCC) Treva Cortes APRN [address] [place] [id number] Phone: tel: fax: [facility] Endocrinology [address] [place] [phone] Phone: tel: fax: Referral ID Status Reason Start Date Expiration Date V isits Requested Visits Authorized [id number] Closed Specialty Services Required 07/28/2021 01/27/2023 1 1 Encounter Details Date Type Department Care Team (Late st Contact Info) Description 07/28/2021 [facility] [address] [place] [address] Treva Cortes APRN [address] [place] [id number] Diabetes mellitus without complication (CMS/HCC) (Primary Dx); Multiple endocrine neoplasia (CMS/HCC) Social History Tobacco Use Types Packs/Day Years Used Date Smoking Tobacco: Never Assessed Comments Unknown Sex and Gender Information Value Date Recorded Sex Assigned at Not on file Legal Sex Female 8:30 PM EDT Gender Identity Not on file Sexual Orientation Not on file documented as of this encounter Plan of Treatment Scheduled Referrals Name Type Priority Associated Diagnoses Orde r Schedule Ambulatory referral to Endocrinology Outpatient Referral Routine Diabetes mellitus without complication (CMS/HCC) Multiple endocrine neoplasia (CMS/HCC) Expected: 07/28/2021 (Approximate), Expires: 10/27/2021 documented as of this encounter Visit Diagnoses Diagnosis Diabetes mellitus without complication- Primary Type II or unspecified type diabetes mellitus without mention of complication, not stated as uncontrolled 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
--- OUTSIDE RECORDS SUMMARY | 2024-10-05 09:55 | XMS_ITS | Data Portability ---
Author Organization [facility] Address [address] [place] [address] Assessment No assessment recorded. Plan of Treatment Reminders Order Date Submit Date Provider Last Modified By Organization Details Last Modified Time Details Appointments Diabetic F/U 2024 04:00P M Treva Cortes, BRAND LEAD Not available Not available Not available Lab CBC w/ auto diff 2024 025 [facility] (Lab), [address] [place], [place] [address]y [address], [place], [address], 09/05/2024 13:39:22 lipid panel, serum 2024 025 [facility] (Lab), [address] [place] [address] Chiquiy [address], [place], [address], 09/11/2024 04:06:06 hemoglobi n A1c, QN, blood 2024 025 [facility] (Lab), [address] [place] [address] [address], [place], [address], 09/11/2024 04:06:07 CMP, serum or plasma 2024 025 [facility] (Lab), [address], [place], [address], 09/05/2024 14:12:25 TSH + free T4, serum 2024 025 [facility] (Lab), [address] [place] [address] [address], [place], [place], [address], 09/05/2024 14:12:26 vitamin B12 + folate, serum or blood 2024 025 [facility] (Lab), [address], [place], [address], 09/05/2024 14:45:49 rapid strep group A, throat 2024 025 [facility], [address] [place] [address], [phone], 07/05/2024 16:36:52 CMP, serum or plasma 2023 024 [facility], [address], [place] F, [place], [address], 02/15/2024 10:09:16 CBC w/ auto diff 2023 024 [facility], [address], [place] [address], [place], [address], 02/15/2024 10:09:16 HbA1c (hemoglob in A1c), blood 2023 024 [facility], [address], [place] [address], [place], [address], 02/15/2024 10:09:18 albumin/c reatinine , mass ratio, urine 2023 024 [facility], [address], [place], [place], [address], 02/15/2024 10:09:17 drug screen, urine 2023 024 [facility], [address] [place] [address], [phone], 02/14/2024 13:40:43 lipid panel, serum 2023 024 [facility], [address], [place] [address], [place], [address], 02/15/2024 10:09:16 vitamin D, 25-hydrox y, total, serum 2023 024 [facility], [address], [place] [address], [place], [address], 02/15/2024 10:09:18 iron + total iron-bind ing capacity (TIBC), serum 2023 024 [facility], [address], [place] [address], [place], [address], 02/15/2024 10:09:17 TSH + free T4, serum 2023 024 [facility], [address], [place] F, [place], [address], 02/15/2024 10:09:15 vitamin B12 + folate, serum or blood 2023 024 [facility], [address], [place] [address], [place], [address], 02/15/2024 10:09:17 Referral dermatolo gist referral 2024 025 [facility], [address] [place] [address] , [address], [place], [address], 09/26/2024 10:55:23 gynecolog ist referral 2024 025 [facility] Mary Brar DO, [address], [address], [place], [address], 10/02/2024 09:06:29 Procedures None recorded. Surgeries None recorded. Imaging MRI, cervical spine, w/o contrast 2023 024 [facility] (X-Ray), [address], [place], [address], 09/07/2023 11:02:26 Medication Orders ondansetr on 4 mg disintegr ating tablet 2024 025 [facility], [address], [address], 09/15/2024 05:01:23 dexametha sone sodium phosphate 4 mg/mL injection solution 2024 025 ef[facility] Not available 09/04/2024 16:52:38 mupirocin 2 % topical ointment 2024 025 [facility], [address], [address], 09/04/2024 16:54:30 Ozempic 1 mg/dose (4 mg/3 mL) subcutane ous pen injector 2024 025 [facility], [address], [address], 09/04/2024 16:56:55 gabapenti n 600 mg tablet 2024 025 [facility], [address], [address], 07/05/2024 16:25:46 Cymbalta 30 mg capsule,d elayed release 2023 024 [facility], [address], [address], 02/14/2024 13:37:51 gabapenti n 600 mg tablet 2023 024 [facility], [address], [address], 11/14/2023 10:39:10 amitripty line 10 mg tablet 2023 024 [facility], [address], [address], 11/14/2023 10:43:33 ibuprofen 800 mg tablet 2023 024 [facility], [address] [place], [address], 02/14/2024 11:04:53 gabapenti n 600 mg tablet 2023 024 [facility], [address] [place], [address], 08/15/2023 10:45:49 Patient TargetsNo targets recorded. Patient InstructionsNo instructions recorded. 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 Ur inary incontinence Referring Physician: Treva Cortes [facility] Medicine, Encounter Date: 09/04/2024 [employer] Camera Person Referral for L esion of skin of face Referring Physician: Treva Cortes [facility] Medicine, Encounter Date: 09/04/2024 Results Created Date Observation Date Name Description Value Unit Range Abnormal Flag Note LastModifiedBy Organization Detail LastModifiedTime 02/14/2002/15/2024 TSH+F REE T4 TSH 1.480 uIU/m L 0.450- 4.500 normal Not Available [facility] ([facility]) [address] [place], [address], 02/15/2024 10:09:15 02/14/2002/15/2024 TSH+F REE T4 T4,free(dire ct) 1.69 NG/dL 0.82-1 .77 normal Not Available [facility] ([facility]) [address] [place], [address], 02/15/2024 10:09:15 02/14/2002/15/2024 CBC WITH DIFFE RENTI AL/PL ATELE T WBC 12.0 x10e3 /uL 3.4-10 .8 above high normal Not Available [facility] ([facility]) [address] [place], [address], 02/15/2024 10:09:16 02/14/2002/15/2024 CBC WITH DIFFE RENTI AL/PL ATELE T RBC 5.25 x10e6 /uL 3.77-5 .28 normal Not Available [facility] ([facility]) [address] [place], [address], 02/15/2024 10:09:16 02/14/2002/15/2024 CBC WITH DIFFE RENTI AL/PL ATELE T hemoglobin 15.1 g/dL 11.1-1 5.9 normal Not Available [facility] ([facility]) [address] [place], [address], 02/15/2024 10:09:16 02/14/2002/15/2024 CBC WITH DIFFE RENTI AL/PL ATELE T hematocrit 46.8 % 34.0-4 6.6 above high normal Not Available [facility] ([facility]) [address] [place], [address], 02/15/2024 10:09:16 02/14/2002/15/2024 CBC WITH DIFFE RENTI AL/PL ATELE T MCV 89 fL 79-97 normal Not Available [facility] ([facility]) [address] [place], [address], 02/15/2024 10:09:16 02/14/2002/15/2024 CBC WITH DIFFE RENTI AL/PL ATELE T MCH 28.8 pg 26.6-3 3.0 normal Not Available [facility] ([facility]) [address] [place], [address], 02/15/2024 10:09:16 02/14/2002/15/2024 CBC WITH DIFFE RENTI AL/PL ATELE T MCHC 32.3 g/dL 31.5-3 5.7 normal Not Available [facility] ([facility]) [address] [place], [address], 02/15/2024 10:09:16 02/14/2002/15/2024 CBC WITH DIFFE RENTI AL/PL ATELE T RDW 13.0 % 11.7-1 5.4 Not Available [facility] ([facility]) [address] [facility], [place], [address], 02/15/2024 10:09:16 02/14/2002/15/2024 CBC WITH DIFFE RENTI AL/PL ATELE T platelets 371 x10e3 /uL 150-45 0 normal Not Available [facility] ([facility]) [address] [facility], [place], [address], 02/15/2024 10:09:16 02/14/2002/15/2024 CBC WITH DIFFE RENTI AL/PL ATELE T neutrophils 63 % not estab. normal Not Available [facility] ([facility]) [address] [facility], [place], [address], 02/15/2024 10:09:16 02/14/2002/15/2024 CBC WITH DIFFE RENTI AL/PL ATELE T lymphs 27 % not estab. normal Not Available [facility] ([facility]) [address] [facility], [place], [address], 02/15/2024 10:09:16 02/14/2002/15/2024 CBC WITH DIFFE RENTI AL/PL ATELE T monocytes 4 % not estab. normal Not Available [facility] ([facility]) [address] [facility], [place], [address], 02/15/2024 10:09:16 02/14/2002/15/2024 CBC WITH DIFFE RENTI AL/PL ATELE T eos 5 % not estab. normal Not Available [facility] ([facility]) [address] [facility], [place], [address], 02/15/2024 10:09:16 02/14/20 24 02/15/2024 CBC WITH DIFFE RENTI AL/PL ATELE T basos 1 % not estab. normal Not Available [facility] ([facility]) [address] [place], [address], 02/15/2024 10:09:16 02/14/20 24 02/15/2024 CBC WITH DIFFE RENTI AL/PL ATELE T immature cells HELICOPTER OFFICER Not Available [facility]) [address] [place], [address], 02/15/2024 10:09:16 02/14/2002/15/2024 CBC WITH DIFFE RENTI AL/PL ATELE T neutrophils (absolute) 7.5 x10e3 /uL 1.4-7. 0 above high normal Not Available [facility] ([facility]) [address] [place], [address], 02/15/2024 10:09:16 02/14/20 24 02/15/2024 CBC WITH DIFFE RENTI AL/PL ATELE T lymphs (absolute) 3.3 x10e3 /uL 0.7-3. 1 above high normal Not Available [facility] ([facility]) [address] [place], [address], 02/15/2024 10:09:16 02/14/20 24 02/15/2024 CBC WITH DIFFE RENTI AL/PL ATELE T monocytes(ab solute) 0.5 x10e3 /uL 0.1-0. 9 normal Not Available [facility] ([facility]) [address] [place], [address], 02/15/2024 10:09:16 02/14/20 24 02/15/2024 CBC WITH DIFFE RENTI AL/PL ATELE T eos (absolute) 0.6 x10e3 /uL 0.0-0. 4 above high normal Not Available [facility] ([facility]) [address] [place], [address], 02/15/2024 10:09:16 02/14/2002/15/2024 CBC WITH DIFFE RENTI AL/PL ATELE T baso (absolute) 0.1 x10e3 /uL 0.0-0. 2 normal Not Available [facility] ([facility]) [address] [facility], [place], [address], 02/15/2024 10:09:16 02/14/2002/15/2024 CBC WITH DIFFE RENTI AL/PL ATELE T immature granulocytes 0 % not estab. Not Available [facility] ([facility]) [address] [facility], [place], [address], 02/15/2024 10:09:16 02/14/2002/15/2024 CBC WITH DIFFE RENTI AL/PL ATELE T immature grans (abs) 0.0 x10e3 /uL 0.0-0. 1 Not Available [facility] ([facility]) [address] [facility], [place], [address], 02/15/2024 10:09:16 02/14/2002/15/2024 CBC WITH DIFFE RENTI AL/PL ATELE T NRBC HELICOPTER OFFICER Not Available [facility] ([facility]) [address] [facility], [place], [address], 02/15/2024 10:09:16 02/14/2002/15/2024 CBC WITH DIFFE RENTI AL/PL ATELE T hematology comments: HELICOPTER OFFICER Not Available [facility] ([facility]) [address] [facility], [place], [address], 02/15/2024 10:09:16 02/14/2002/15/2024 COMP. METAB OLIC PANEL (14) glucose 219 mg/dL 70-99 above high normal Not Available [facility] ([facility]) [address] [facility], [place], [address], 02/15/2024 10:09:16 02/14/20 24 02/15/2024 COMP. METAB OLIC PANEL (14) BUN 13 mg/dL 6-24 normal Not Available [facility] ([facility]) [address] [place], [address], 02/15/2024 10:09:16 02/14/20 24 02/15/2024 COMP. METAB OLIC PANEL (14) creatinine 0.90 mg/dL 0.57-1 .00 normal Not Available [facility] ([facility]) [address] [facility], [place], [address], 02/15/2024 10:09:16 02/14/2002/15/2024 COMP. METAB OLIC PANEL (14) eGFR 74 mL/mi n/1.7 3 >59 normal Not Available [facility] ([facility]) [address] [facility], [place], [address], 02/15/2024 10:09:16 02/14/20 24 02/15/2024 COMP. METAB OLIC PANEL (14) BUN/creatini ne ratio 14 9-23 normal Not Available [facility] ([facility]) [address] [facility], [place], [address], 02/15/2024 10:09:16 02/14/20 24 02/15/2024 COMP. METAB OLIC PANEL (14) sodium 135 mmol/ L 134-14 4 normal Not Available [facility] ([facility]) [address] [place], [address], 02/15/2024 10:09:16 02/14/20 24 02/15/2024 COMP. METAB OLIC PANEL (14) potassium 4.1 mmol/ L 3.5-5. 2 normal Not Available [facility] ([facility]) [address] [facility], [place], [address], 02/15/2024 10:09:16 02/14/20 24 02/15/2024 COMP. METAB OLIC PANEL (14) chloride 96 mmol/ L 96-106 normal Not Available [facility] ([facility]) [address] [place], [address], 02/15/2024 10:09:16 02/14/20 24 02/15/2024 COMP. METAB OLIC PANEL (14) carbon dioxide, total 21 mmol/ L 20-29 normal Not Available [facility] ([facility]) [address], [place], [address], 02/15/2024 10:09:16 02/14/20 24 02/15/2024 COMP. METAB OLIC PANEL (14) calcium 9.7 mg/dL 8.7-10 .2 normal Not Available [facility] ([facility]) [address], [place], [address], 02/15/2024 10:09:16 02/14/20 24 02/15/2024 COMP. METAB OLIC PANEL (14) protein, total 7.0 g/dL 6.0-8. 5 normal Not Available [facility] ([facility]) [address] [place], [address], 02/15/2024 10:09:16 02/14/20 24 02/15/2024 COMP. METAB OLIC PANEL (14) albumin 4.6 g/dL 3.8-4. 9 normal Not Available [facility] ([facility]) [address] [place], [address], 02/15/2024 10:09:16 02/14/20 24 02/15/2024 COMP. METAB OLIC PANEL (14) globulin, total 2.4 g/dL 1.5-4. 5 Not Available [facility] ([facility]) [address] [place], [address], 02/15/2024 10:09:16 02/14/20 24 02/15/2024 COMP. METAB OLIC PANEL (14) bilirubin, total 1.2 mg/dL 0.0-1. 2 normal Not Available [facility] ([facility]) [address] [place], [address], 02/15/2024 10:09:16 02/14/20 24 02/15/2024 COMP. METAB OLIC PANEL (14) alkaline phosphatase 133 IU/L 44-121 above high normal Not Available [facility] ([facility]) [address] [place], [address], 02/15/2024 10:09:16 02/14/20 24 02/15/2024 COMP. METAB OLIC PANEL (14) AST (SGOT) 42 IU/L 0-40 above high normal Not Available [facility] ([facility]) [address] [place], [address], 02/15/2024 10:09:16 02/14/20 24 02/15/2024 COMP. METAB OLIC PANEL (14) ALT (SGPT) 80 IU/L 0-32 above high normal Not Available [facility] ([facility]) [address] [place], [address], 02/15/2024 10:09:16 02/14/20 24 02/15/2024 LIPID PANEL cholesterol, total 195 mg/dL 100-19 9 normal Not Available [facility] ([facility]) [address] [place], [address], 02/15/2024 10:09:16 02/14/20 24 02/15/2024 LIPID PANEL triglyceride s 124 mg/dL 0-149 normal Not Available [facility]) [address] [place], [address], 02/15/2024 10:09:16 02/14/20 24 02/15/2024 LIPID PANEL HDL cholesterol 48 mg/dL >39 normal Not Available [facility]) [address] [place], [address], 02/15/2024 10:09:16 02/14/20 24 02/15/2024 LIPID PANEL VLDL cholesterol lg 22 mg/dL 5-40 Not Available [facility] ([facility]) [address] [place], [address], 02/15/2024 10:09:16 02/14/20 24 02/15/2024 LIPID PANEL LDL chol calc ([facility]) 125 mg/dL 0-99 above high normal Not Available [facility] ([facility]) [address] [facility], [place], [address], 02/15/2024 10:09:16 02/14/2002/15/2024 LIPID PANEL LDL calc comment: HELICOPTER OFFICER Not Available [facility] ([facility]) [address] [facility], [place], [address], 02/15/2024 10:09:16 02/14/20 24 02/15/2024 IRON AND TIBC iron bind.cap.(TI BC) 323 ug/dL 250-45 0 normal Not Available [facility] ([facility]) [address] [place], [address], 02/15/2024 10:09:17 02/14/20 24 02/15/2024 IRON AND TIBC UIBC 249 ug/dL 131-42 5 normal Not Available [facility] ([facility]) [address] [place], [address], 02/15/2024 10:09:17 02/14/20 24 02/15/2024 IRON AND TIBC iron 74 ug/dL 27-159 normal Not Available [facility] ([facility]) [address] [place], [address], 02/15/2024 10:09:17 02/14/20 24 02/15/2024 IRON AND TIBC iron saturation 23 % 15-55 normal Not Available [facility]) [address] [place], [address], 02/15/2024 10:09:17 02/14/20 24 02/15/2024 ALBUM IN/CR EATIN INE RATIO ,URIN E creatinine, urine 26.3 mg/dL not estab. normal Not Available [facility] ([facility]) [address] [facility], [place], [address], 02/15/2024 10:09:17 02/14/20 24 02/15/2024 ALBUM IN/CR EATIN INE RATIO ,URIN E albumin, urine <3.0 ug/mL not estab. Not Available [facility] ([facility]) [address] [facility], [place], [address], 02/15/2024 10:09:17 02/14/20 24 02/15/2024 ALBUM IN/CR EATIN INE RATIO ,URIN E alb/creat ratio <11 mg/g_ creat 0-29 Comfort l: 0 - 29 Moder ately incre ased: 30 - 300 Sever shreyas incre ased: >300 Not Available [facility] ([facility]) [address] [facility], [place], [address], 02/15/2024 10:09:17 02/14/20 24 02/15/2024 VITAM IN B12 AND FOLAT E vitamin B12 250 pg/mL 232-12 45 normal Not Available [facility] ([facility]) [address] [facility], [place], [address], 02/15/2024 10:09:17 02/14/20 24 02/15/2024 VITAM IN B12 AND FOLAT E folate (folic acid), serum 8.0 NG/mL >3.0 normal A serum folat e cj ntrat ion of less than 3.1 ng/mL is consi dered to repre sent clini lg defic iency . Not Available [facility] ([facility]) [address] [facility], [place], [address], 02/15/2024 10:09:17 02/14/20 24 02/15/2024 HEMOG LOBIN A1C hemoglobin A1C 7.1 % 4.8-5. 6 above high normal Predi abete s: 5.7 - 6.4 Diabe hubert: >6.4 Glyce jessica contr ol for adult s with diabe hubert: <7.0 Not Available [facility] ([facility]) [address] [facility], [place], [address], 02/15/2024 10:09:18 02/14/20 24 02/15/2024 VITAM IN D, 25-HY DROXY vitamin D, 25-hydroxy 34.4 NG/mL 30.0-1 00.0 Vitam in D defic iency has been defin ed by the Insti tute of Medic ine and an Endoc rine Socie ty pract ice guide line as a level of serum 25-OH vitam in D less than 20 ng/mL (1,2) . The Endoc rine Socie ty went on to furth er defin e vitam in D insuf ficie ncy as a level betwe en 21 and 29 ng/mL (2). 1. IOM (Inst itute of Medic ine). 2009. Dieta ry refer ence joya es for calci um and D. Tarsha mcrae [place]: The [facility] . 2. Fara tan MF, Shaunna smith [place], Jose off-F errar i ALLEN, et al. Evalu ation , treat ment, and preve ntion of vitam in D defic iency : an Endoc rine Socie ty clini lg pract ice guide line. JCEM. 2010; 96(7) :1911 -30. Not Available [facility] ([facility]) [address] [facility], [place], [address], 02/15/2024 10:09:18 02/14/20 24 02/14/2024 drug scree n, urine THC negati ve Not Available [address], [address], 02/14/2024 11:42:13 02/14/2002/14/2024 drug scree n, urine TCA positi ve Not Available [address], [address], 02/14/2024 11:42:13 02/14/2002/14/2024 drug scree n, urine BAR negati ve Not Available [address], [address], 02/14/2024 11:42:13 02/14/2002/14/2024 drug scree n, urine BZO negati ve Not Available [address], [address], 02/14/2024 11:42:13 02/14/2002/14/2024 drug scree n, urine MTD negati ve Not Available [address], [address], 02/14/2024 11:42:13 02/14/2002/14/2024 drug scree n, urine AMP negati ve Not Available [address], [address], 02/14/2024 11:42:13 02/14/2002/14/2024 drug scree n, urine MOP negati ve Not Available [address], [address], 02/14/2024 11:42:13 02/14/2002/14/2024 drug scree n, urine OXY negati ve Not Available [address], [address], 02/14/2024 11:42:13 02/14/2002/14/2024 drug scree n, urine MDMA negati ve Not Available [address], [address], 02/14/2024 11:42:13 02/14/2002/14/2024 drug scree n, urine TABBY negati ve Not Available [address], [address], 02/14/2024 11:42:13 02/14/2002/14/2024 drug scree n, urine PCP negati ve Not Available [address], [address], 02/14/2024 11:42:13 02/14/2002/14/2024 drug scree n, urine MET negati ve Not Available [address], [address], 02/14/2024 11:42:13 07/06/19 25 07/05/2024 rapid strep group A, throa t Strep negati ve Not Available [address], [address], 07/05/2024 15:53:42 07/06/19 25 07/05/2024 rapid strep group A, throa t Culture No Not Available [address], [address], 07/05/2024 15:53:42 07/22/19 24 07/21/2023 XR, cervi lg spine , 2 or 3 view No observ ation record ed. [facility] [address], [place], [address], 07/22/2023 14:36:08 09/07/19 24 09/07/2023 MRI, cervi lg spine , w/o contr ast No observ ation record ed. [facility] [address], [place], [address], 09/16/2023 11:40:41 03/01/2002/27/2024 US, liver No observ ation record ed. [facility] [address], [place], [address], 03/05/2024 10:46:01 Result Notes None recorded. Problems Name Problem SNOMED Code Status Onset Date Resolution Date Notes Provider Name and Address Organization Details Recorded Time Hypertensive disorder 68221158 Active 2023 Treva Cortes, BRAND [employer]AD [address], [place], [address], [place] - [facility] 4 13:57:01 Hypothyroidism 11546237 Active 2023 Treva Cortes, [employer] [address], [place], [address], [place] [facility] 4 13:57:03 Hypercholester olemia 54633039 Active 2023 Treva Cortes, [employer] [address], [place], [address], [place] [facility] 4 13:56:58 Type 2 diabetes mellitus 14084590 Active 2023 Treva Cortes, [employer] [address], [place], [address], [place] [facility] 4 13:57:21 Neuropathy 304942959 Active 2023 Treva Cortes, [employer]AD [address], [place], [address], [place] [facility] 4 13:57:06 Chronic back pain 134472188 Active 2023 Treva Cortes, [employer]AD [address], [place], [address], [place] [facility] 4 13:56:55 Urinary incontinence 068190824 Active 2023 Treva Cortes, [employer] [address], [place], [address], [place] [facility] 4 13:57:35 Vitamin D deficiency 11687576 Active 2024 Treva Cortes, BRAND LEAD [address], [place], [address], [place] - [facility] 5 08:35:05 Problem Notes None recorded. Procedures Surgical History Date Name Laterality Status Provider Name and Address Organization Details Recorded Time 04/25/19 06 Hysterectomy completed Ora Stears [place] - [facility] 06/20/2023 13:42:06 04/25/18 87 Tubal Ligation completed Ora Stears [place] - [facility] 06/20/2023 13:42:06 04/25/18 82 Dilation and Curettage, sharp completed Ora Stears [place] - [facility] 06/20/2023 13:42:06 Imaging Results None recorded. Procedure Notes None recorded. Medical Equipment None Reported. Allergies Allergen ID Allergen Name Allergen Category Reaction Reaction Severity Criticality Documentation Date Start Date Code Code System Note Provider Name and Address Organization Details Recorded Time 869530 aspirin medicatio n Not available Not available Not available 06/20/2023 1191 RxNorm Ora Stears [facility], [place] - [facility] 4 13:53:41 Medications Name Sig Start Date Stop Date Status Note LastModified by Organization Details LastModified Time Prescripti on - New active Not Available Not Available Not Available amantadine HCl 100 mg tablet 08/14 completed pt states she does not take this Not Available Not Available Not Available celecoxib 200 mg capsule 06/20 completed Not Available Not Available Not Available cyclobenza ambar 10 mg tablet TAKE 1 TABLET BY MOUTH THREE TIMES DAILY 09/04 completed Not Available Not Available Not Available bupropion HCl SR 150 mg tablet,12 hr sustained- release TAKE 1 TABLET BY MOUTH TWICE DAILY 06/20 completed Not Available Not Available Not Available gabapentin 600 mg tablet TAKE 1 TABLET BY MOUTH TWICE DAILY active Not Available Not Available No t Available lisinopril 20 mg-hydroch lorothiazi de 12.5 mg tablet TAKE 1 TABLET BY MOUTH ONCE DAILY active Not Available Not Available No t Available ibuprofen 800 mg tablet TAKE 1 TABLET BY MOUTH THREE TIMES DAILY NEEDED 02/13 completed Not Available Not Available Not Available prednisone 20 mg tablet Take 1 tablet twice a day by oral route for 5 days. 07/05 completed Not Available Not Available Not Available gabapentin 400 mg capsule TAKE 1 CAPSULE BY MOUTH THREE TIMES DAILY FOR 30 DAYS 08/14 completed Not Available Not Available Not Available omeprazole 40 mg capsule,de layed release TAKE 1 CAPSULE BY MOUTH ONCE DAILY active Not Available Not Available No t Available tramadol 50 mg tablet TAKE 1 TABLET BY MOUTH THREE TIMES DAILY active Not Available Not Available No t Available amoxicilli n 500 mg tablet Take 1 tablet twice a day by oral route for 10 days. 09/23 completed Not Available Not Available Not Available levothyrox ine 88 mcg tablet TAKE 1 TABLET BY MOUTH ONCE DAILY active Not Available Not Available No t Available methocarba mol 750 mg tablet TAKE 1 TABLET BY MOUTH THREE TIMES DAILY active Not Available Not Available No t Available ropinirole 0.25 mg tablet TAKE 1 TABLET BY MOUTH AT BEDTIME NIGHTLY ADMINIST ER 1-3 HOURS BEFORE BEDTIME active Not Available Not Available No t Available VibesTouch Ultra Test strips USE 1 STRIP TO CHECK GLUCOSE TWICE DAILY TO CHECK GLUCOSE active Not Available Not Available No t Available amitriptyl ine 10 mg tablet TAKE 1 TABLET BY MOUTH ONCE DAILY active Not Available Not Available No t Available phenazopyr idine 100 mg tablet 06/20 completed Not Available Not Available Not Available simvastati n 5 mg tablet Take 1 tablet by mouth once daily 2024 active Not Available Not Available Not Avai lable ropinirole 0.5 mg tablet TAKE 1 TABLET BY MOUTH NIGHTLY - TAKE 1-3 HRS BEFORE BEDTIME active Not Available Not Available No t Available omeprazole 20 mg capsule,de layed release TAKE 1 CAPSULE BY MOUTH ONCE DAILY 09/04 completed Not Available Not Available Not Available mupirocin 2 % topical ointment APPLY OINTMENT TOPICALL Y TO AFFECTED AREA THREE TIMES DAILY active Not Available Not Available No t Available ergocalcif hanny (vitamin D2) 1,250 mcg (50,000 unit) capsule TAKE 1 CAPSULE BY MOUTH ONCE A WEEK active Not Available Not Available No t Available dexamethas one sodium phosphate 4 mg/mL injection solution Inject 1 mL as needed by intramus cular route. 2024 active Not Available Not Available Not Avai lable ondansetro n 4 mg disintegra ting tablet Place 1 tablet every 8 hours by translin gual route as needed for 4 days. 09/15 completed Not Available Not Available Not Available nitrofuran toin monohydrat e/macrocry stals 100 mg capsule 06/20 completed Not Available Not Available Not Available duloxetine 20 mg capsule,de layed release TAKE 1 CAPSULE BY MOUTH ONCE DAILY 09/04 completed Not Available Not Available Not Available duloxetine 30 mg capsule,de layed release TAKE 1 CAPSULE BY MOUTH ONCE DAILY active Not Available Not Available No t Available cholecalci ferol (vitamin D3) 1,250 mcg (50,000 unit) capsule TAKE 1 CAPSULE BY MOUTH ONCE A WEEK active Not Available Not Available No t Available Ozempic 0.25 mg or 0.5 mg (2 mg/1.5 mL) subcutaneo us pen injector Inject 0.5 mg every week by subcutan eous route. 11/13 completed Not Available Not Available Not Available Ozempic 1 mg/dose (4 mg/3 mL) subcutaneo us pen injector INJECT 1MG SUBCUTAN EOUSLY ONCE A WEEK active Not Available Not Available No t Available Ozempic 0.25 mg or 0.5 mg (2 mg/3 mL) subcutaneo us pen injector INJECT 0.5 MG SUBCUTAN EOUSLY ONCE A WEEK active Not Available Not Available No t Available Vitals Date Recorded Body height Body mass index (BMI) Body weight Oxygen saturation Oxygen saturation in Arterial blood by Pulse oximetry Heart rate Respiratory rate Systolic blood pressure Diastolic blood pressure Provider Name and Address Organization Details Last Updated DateTime 5 156.85 cm 33.2 kg/m2 95260.6 3 g 96 % 96 % 85 /min 18 /min 132 mm[Hg] 84 mm[Hg] Jocelyn Owens [place] - [facility] 5 15:55:59 Date Recorded Body height Respiratory rate Body mass index (BMI) Body weight Body temperature Heart rate Oxygen saturation Oxygen saturation in Arterial blood by Pulse oximetry Systolic blood pressure Diastolic blood pressure Provider Name and Address Organization Details Last Updated DateTime 4 156.85 cm 18 /min 34.3 kg/m2 03408.1 8 g 97.4 [degF] 92 /min 98 % 98 % 126 mm[Hg] 78 mm[Hg] Ora Dominguez [place] - [facility] 4 10:24:38 Date Recorded Body height Respiratory rate Body mass index (BMI) Body weight Body temperature Heart rate Oxygen saturation Oxygen saturation in Arterial blood by Pulse oximetry Systolic blood pressure Diastolic blood pressure Provider Name and Address Organization Details Last Updated DateTime 5 156.85 cm 18 /min 33.7 kg/m2 12274.4 g 97.8 [degF] 84 /min 97 % 97 % 128 mm[Hg] 80 mm[Hg] Ora Dominguez [place] - [facility] 5 16:18:49 Date Recorded Body height Body mass index (BMI) Body weight Body temperature Heart rate Oxygen saturation Oxygen saturation in Arterial blood by Pulse oximetry Respiratory rate Systolic blood pressure Diastolic blood pressure Provider Name and Address Organization Details Last Updated DateTime 4 156.85 cm 34.8 kg/m2 88667.9 6 g 97.8 [degF] 89 /min 97 % 97 % 20 /min 124 mm[Hg] 82 mm[Hg] Jocelyn Owens [place] - [facility] 4 10:11:57 Date Recorded Body height Body mass index (BMI) Body weight Heart rate Oxygen saturation Oxygen saturation in Arterial blood by Pulse oximetry Respiratory rate Body temperature Systolic blood pressure Diastolic blood pressure Provider Name and Address Organization Details Last Updated DateTime 4 156.85 cm 34.3 kg/m2 33742.8 8 g 93 /min 97 % 97 % 18 /min 98.7 [degF] 132 mm[Hg] 78 mm[Hg] Jocelyn Owens [facility] 4 11:04:18 Social History Question Answer Notes LastModified by Organizat ion Details LastModified Time Tobacco Smoking Status Never Smoker Ora Dominguez [facility], [place] - [facility] 06/20/2023 13:42:05 Do You Have An Advance Directive? No Information n ot available 06/20/2023 Are You Blind Or Do You Have Difficulty Seeing? No Information n ot available 06/20/2023 Is Blood Transfusion Acceptable In An Emergency? Yes Information not available 06/20/2023 What Is Your Level Of Caffeine Consumption? Heavy Information not available 06/20/2023 How Much Tobacco Do You Chew? None Information not available 06/20/2023 In The 14 Days Before Symptom Onset, Have You Had Close Contact With A Laboratory-confirm ed COVID-19 While That Case Was Ill? No Information n ot available 02/14/2024 In The 14 Days Before Symptom Onset, Have You Had Close Contact With A Person Who Is Under Investigation For COVID-19 While That Person Was Ill? No Information not available 02/14/2024 Have You Been To An Area Known To Be High Risk For COVID-19? No Information not available 02/14/2024 Are You Deaf Or Do You Have Serious Difficulty Hearing? No Information not available 06/20/2023 What Type Of Diet Are You Following? REGULAR Information n ot available 06/20/2023 Which Illicit Or Recreational Drugs Have You Used? None Information not available 06/20/2023 Have You Processed Blood Or Body Fluids From An Ebola Virus Disease Patient Without Appropriate PPE? No Information not available 02/14/2024 Do You Reside In Or Have You Traveled To An Area Where Ebola Virus Transmission Is Active? No Information not available 02/14/2024 What Is The Highest Grade Or Level Of School You Have Completed Or The Highest Degree You Have Received? [id number] Information not available 06/20/2023 Have There Been Any Changes To Your Family Or Social Situation? No Information no t available 06/20/2023 What Is The Fluoride Status Of Your Home? Unknown Information not available 06/20/2023 Have You Recently Or Are You Planning To Travel To An Area With Zika Virus? No Information not available 02/14/2024 Do You Have A Medical Power Of Phone Operator? No Information not available 06/20/2023 What Was The Date Of Your Most Recent Tobacco Screening? 07/05/2024 Information not available 07/05/2024 How Many Children Do You Have? 3 Information not available 06/20/2023 Do You Use Protection Against STDs? No Information not available 06/20/2023 What Is Your Relationship Status? Single Information not available 06/20/2023 Do You Use Your Seat Belt Or Car Seat Routinely? Yes Information not available 06/20/2023 Are You Sexually Active? No Information not available 06/20/2023 Do You Have Smoke And Carbon Monoxide Detectors In Your Home? No Information not available 06/20/2023 Are You Passively Exposed To Smoke? Yes Information no t available 06/20/2023 Do You Use Sunscreen Routinely? No Information not available 06/20/2023 Has Tobacco Cessation Counseling Been Provided? No Information not available 06/20/2023 Do You Have Difficulty Walking Or Climbing Stairs? No Information not available 06/20/2023 Sex: Female Functional Status Question Answer Note LastModified by Organizat ion Details LastModified Time Do you or have you ever used smokeless tobacco? Never used smokeless tobacco Information not available 06/20/2023 Are you currently employed? Yes Information not available 06/20/2023 Do you have transportation difficulties? No Information not available 06/20/2023 Are you able to care for yourself? Yes Information n ot available 06/20/2023 Do you have difficulty dressing or bathing? No Information not available 06/20/2023 Do you or have you ever used e-cigarettes or vape? Never used electronic cigarettes Information not available 06/20/2023 What is your exercise level? None Information not available 06/20/2023 Do you use any illicit or recreational drugs? No Information not available 06/20/2023 Do you or have you ever used any other forms of tobacco or nicotine? No Information not available 06/20/2023 What is your level of alcohol consumption? None Information not available 06/20/2023 Are you able to walk? YESWOREST Information not available 06/20/2023 Do you have difficulty doing errands alone? No Information not available 06/20/2023 What is your occupation? [employer] Information not available 06/20/2023 Mental Status Question Answer Note LastModified by Organizat ion Details LastModified Time Do you feel stressed (tense, restless, nervous, or anxious, or unable to sleep at night)? [id number] Information not available 06/20/2023 Do you have difficulty concentrating, remembering or making decisions? Yes Information no t available 06/20/2023 Family History Relationship Description Onset Age of this Age Resolved Age Notes LastModified by Organization Details LastModified Time Paternal Grandmother Hypercholest erolemia bstears Not available 2023 13:42:04 Paternal Grandmother Arthritis bstears Not available 05/27 13:42:04 Mother Disorder of thyroid gland bstears Not available 2023 13:42:04 Mother Obesity bstears Not available 0 06/20/2023 13:42:04 Mother Diabetes mellitus bstears Not available 2023 13:42:04 Paternal Aunt Malignant neoplastic disease bstears Not available 2023 13:42:04 Unspecified Relation Cerebrovascu lar accident bstears Not available 13:42:04 Paternal Grandfather Chronic obstructive pulmonary disease bstears Not available 2023 13:42:04 Paternal Grandfather Cerebrovascu lar accident bstears Not available 13:42:04 Paternal Grandfather Hypertensive disorder bstears Not available 2023 13:42:04 Father Malignant neoplasm of lung bstears Not available 2023 13:42:04 Medical History Condition Response Anxiety Disorder Y Obesity Y Vision or Eye Problems Y Arthritis Y Acid Reflux (GERD) Y Hypercholesterolemia Y Headaches Y Constipation Y Neuropathy Y Thyroid Problems Y Anemia Y Diabetes Y Degenerative Disc Disease Y Diverticulitis Y Hypertension Y Gynecological History Statement/Question Response Abnormal Pap N Date of Last Mammogram Date of LMP 04/25/2005 STIs/STDs Y HPV Vaccine N Current Control Method None Age at Menarche 12 Age at First Child 18 Date of Last Colonoscopy Most Recent Bone Density Sexually Active? N Menses Monthly N LMP Unknown Hormone Replacement Therapy N Obstetrics History GPAL:G 0 P 0 0 0 0 Immunizations Vaccine Type Date Status Note Provider Nam e and Address Organization Details Recorded Time Tdap 01/19/2012 completed Ora neri, [place] - [facility] 06/20/2023 13:53:29 Past Encounters Encounter ID Performer Location Encounter Start Date Encounter Closed Date Diagnosis/Indication Diagnosis SNOMED-CT Code Diagnosis ICD10 Code Diagnosis Note [id number] Stormnel Cortes [address] [address] 06/20/2023 13:32:59 06/20/2023 14:48:07 Long-term drug therapy 527548488 Z79.899 Neuropathy 606847859 G62 .9 Pt compliant with plan of careKasper reviewedme dication compliance discussedL ast uds: 4Control substance agreement on file Chronic back pain 687139 002 G89.29 will obtain labs and records Type 2 ym betes mellitus 28337220 E11.9 obtain labs and records for next visit [id number] Treva Cortes [address] [address] 07/18/2023 10:22:12 07/18/2023 10:48:27 Body mass index 30+ - obesity 065272438 Z68.33 Obesity 425085418 E66.9 Neuropathy 130780729 G62 .9 Pt compliant with plan of careKasper reviewedme dication compliance discussedL ast uds: 4Control substance agreement on file Chronic back pain 388773 002 G89.29 Neck pain 70309673 M54.2 monitor glucose close while on steroids [id number] Treva Cortes [address] [address] 08/15/2023 10:11:06 08/15/2023 10:46:33 Neuropathy 408523029 G62.9 Pt compliant with plan of careKasper reviewedme dication compliance discussedL ast uds: 4Control substance agreement on file Type 2 my betes mellitus 40531144 E11.9 obtain labs and records for next visit Chronic back pain 790774 002 G89.29 Pain in right arm 250362 004 M79.601 Paresthesi a of upper limb 88424409 R20.2 [id number] Stormnel [address] [address] 11/14/2023 09:54:44 11/14/2023 10:44:16 Type 2 diabetes mellitus 70200861 E11.9 labs done at old office in [place] Neuropathy 697328704 G62 .9 Pt compliant with plan of careKasper reviewedme dication compliance discussedL ast uds: 4Control substance agreement on filefollow up with pain mangement and neurosurge ry [id number] Stormnel Cortes [address] [address] 02/14/2024 10:46:17 02/14/2024 12:04:49 Hypercholesterolemia 74351220 E78.00 Hypertensive disorder 38 517321 I10 Hypothyroidism 32218655 E03.9 Neuropathy 631341615 G62 .9 Pt compliant with plan of careKasper reviewedme dication compliance discussedL ast uds:Control substance agreement on filefollow up with pain mangement and neurosurge ry Type 2 my betes mellitus 83456630 E11.9 Depressive disorder 3548 9007 F32.A slight increase with cymbalta Fatigue 46661279 R53.83 Memory impairment 935331 006 R41.3 Long-term drug therapy 286624955 Z79.120 [id number] Audraurszula jose [address] [address] 07/05/2024 15:36:11 07/05/2024 16:48:36 Pharyngitis 099898347 J02.9 Chronic back pain 008236 002 G89.29 Neuropathy 102945698 G62 .9 Pt compliant with plan of careKasper reviewedme dication compliance discussedL ast uds:Control substance agreement on file [id number] Audraurszula jose[address] [address] 09/04/2024 16:12:04 09/04/2024 16:52:04 Acute migraine 9546477194 68383 G43.909 Hypercholesterolemia 136 16712 E78.00 Hypertensive disorder 38 537443 I10 Hypothyroidism 91588165 E03.9 Neuropathy 488526581 G62 .9 Type 2 my betes mellitus 65807464 E11.9 Nausea and vomiting 1693 1999 R11.2 if worsen or no improvemen t return or go to er Urinary incontinence 165 799107 R32 Lesion of skin of face 8005830024 06 L98.9 Health Concerns Section Related Observation LastModified by Organization Detai ls LastModified Time None Recorded Concern Status LastModified by Organization Details LastModified Time None Recorded Advance Directives Directive N: Payers Insurance Date Sequence Insurance Name Policy Number Policy Malagon Covered Member ID Malagon Member ID Guarantor Name 09/24/2024 [id number] [id number] [place] (MEDICAID[place] Alena Siddiqui Banner [id number] Alena Banner 09/24/2024 1 [employer] [facility] (MEDICAID HMO) Alena Mckaygh [id number] Alena Veliz Notes Date Note Type Note Provider Name and Address Organization Details Recorded Time 08/15/2023 text/html 58 year old edyta lara who presents to the office today for a follow up onDiabetes, neuropathy and chronic back pain-needs refill on glucose strips, gabapentin, ibuprofen.pt states the increase in gabapentin helps her neuropath.pt states her neck pain is getting worse, pain is radiating down arm into hand and fingers. pt states arm will go numb and pinking finger will stay numb and tingling. pt states worse when she is working Treva Cortes APRN [address], [place], [address], [employer] - [facility] 08/15/2023 13:08:15 11/14/2023 text/html 58 yr old female presents for a diabetes follow up. She needs a few medication refills. pt states gabapentin is helping but still having the numbness in hands. pt states she missed neurosurgery appointment but will call to get new appointment. sees pain management for injections Stormnel Cortes APRN [address], [place], [address], [place] - [facility] 11/14/2023 10:44:11 02/14/2024 text/html Diabetes F/UReported bypatient.Context:n ormal range of home blood sugars (in the low 100s); seeing eye doctor regularly; checking feet regularly Associated Symptoms:no weight gain; no weight loss; no dizziness; no sweats; no headaches; no confusion; no increased thirst; no increased appetite; no increased urination; no blurred vision; no numbness of feet; no calluses on feet 58 yr old female presents for a diabetic follow up and labs. She also states she is having depression with no thoughts of si or hi. She is also nauseated, asking for some zofran. She has quit her job she had of 27 years due to their changes in shift times- she feels she has lost meaning to life. pt states she is having hearing problems, feels buzzing in ear.pt states she feels she might have memory problems states she is forgetful Treva Cortes APRN [address], [place], [address], [employer] - [facility] 03/06/2024 10:58:20 07/05/2024 text/html 58 yr old female presents with a sore throat and needs to refill her gabapentin. She is interested in letting pain management prescribe her gabapentin but they told her they needed something in writing from PCP. Treva Cortes APRN [address], [place], [address], [employer] - [facility] 07/05/2024 16:29:41 09/04/2024 text/html 59 year old edyta lara who presents to the office today with concerns of vomiting, diarrhea, headache, sick x 2 days, states she gets sick at times with migraines- [facility] has concerns also of sore on lower abdomen, she injected her ozempic shot standing up and she thinks it went right under the skinlesion on left nose- wants dermatology referral to [facility] to discuss weight lossstates urinary incontinence is getting worse Treva Cortes APRN [address], [place], [address], [place] - [facility] 09/04/2024 17:00:36 OBGyn Episode No OBEpisode recorded.
--- OUTSIDE RECORDS SUMMARY | 2024-10-05 09:55 | XMS_ITS | Encounter Summary ---
Author Organization Healthcare Address [address] [place] [address] Care Team Providers Care Director Law Enforcement Name Role Phone Treva Cortes STAMP CLASSIFIER Primary Care Provider [phone]- [phone] Reason for Visit * Reason Comments Med Refill Encounter Details Date Type Department Care Team (Late st Contact Info) Description 07/22/2022 Refill [place] [facility] [address] [place] [address] Brenda Gutiérrez, STAMP CLASSIFIER [address] [place] [address] Gastroesophageal reflux disease, unspecified whether esophagitis present (Primary Dx) Social History Tobacco Use Types Packs/Day Years Used Date Smoking Tobacco: Never Smokeless Tobacco: Never PHQ-2 Answer Date Recorded Patient Health Questionnaire-2 Score 1 01/13/2022 Comments Unknown Sex and Gender Information Value Date Recorded Sex Assigned at Not on file Legal Sex Female 8:30 PM EDT Gender Identity Not on file Sexual Orientation Not on file documented as of this encounter Miscellaneous Notes * Telephone Encounter - Monica Adames RN - 07/27/2022 1:58 PM EDT Attempted to call patient to set up follow up. She did not answer. Left her a voicemail to call back to set up appointment * Telephone Encounter - Janice Peter - 07/23/2022 7:35 AM EDT Per protocol, 1 medication(s), Omeprazole, has been approved for 90 day supply with 0 refill(s) to [facility] pharmacy. documented in this encounter Plan of Treatment Not on file documented as of this encounter Visit Diagnoses Diagnosis Gastroesophageal reflux disease, unspecified whether esophagitis present- Primary documented in this encounter Additional Health Concerns Assessment Noted Time A fall risk assessment has been complete d for the patient 05/31/2022 9:21 AM EST A Body Mass Index follow-up plan has been documented for the patient 05/31/2022 3:40 PM EST documented as of this encounter Care Teams Director Law Enforcement Relationship Specialty Start Date End Date Treva Cortes APRN [address] [place] [id number] PCP - General 09/14/21 documented as of this encounter
--- OUTSIDE RECORDS SUMMARY | 2024-10-05 09:55 | XMS_ITS | Encounter Summary ---
Author Organization Healthcare Address [address] [place] [address] Care Team Providers Care Wedding Consultant Name Role Phone Treva Cortes TRUST CLERK Primary Care Provider [phone]- [phone] Reason for Visit * Reason Comments Med Refill Encounter Details Date Type Department Care Team (Late st Contact Info) Description 11/18/2022 Refill [place] [facility] [address] [place] [address] Brenda Gutiérrez, TRUST CLERK [address] [place] [address] Gastroesophageal reflux disease, unspecified whether esophagitis present Social History Tobacco Use Types Packs/Day Years Used Date Smoking Tobacco: Never Smokeless Tobacco: Never Alcohol Use Standard Drinks/Week Comments Never 0 (1 standard drink = 0.6 oz pur e alcohol) PHQ-2 Answer Date Recorded Patient Health Questionnaire-2 Score 1 01/13/2022 Comments Unknown Sex and Gender Information Value Date Recorded Sex Assigned at Not on file Legal Sex Female 8:30 PM EDT Gender Identity Not on file Sexual Orientation Not on file documented as of this encounter Miscellaneous Notes * Telephone Encounter - Dom Lane, PharmD - 11/18/2022 11:40 AM EDT Per protocol, 1 medication(s), omeprazole, has been approved for 90 day supply with 0 refill(s) to [facility] pharmacy. documented in this encounter Plan of Treatment Not on file documented as of this encounter Visit Diagnoses Diagnosis Gastroesophageal reflux disease, unspecified whether esophagitis present documented in this encounter Additional Health Concerns Assessment Noted Time A fall risk assessment has been complete d for the patient 10/15/2022 3:40 PM EDT A Body Mass Index follow-up plan has been documented for the patient 10/17/2022 12:43 PM EDT documented as of this encounter Care Teams Wedding Consultant Relationship Specialty Start Date End Date Treva Cortes APRN [address] [place] [address] PCP - General 09/14/21 documented as of this encounter
--- OUTSIDE RECORDS SUMMARY | 2024-10-05 09:55 | XMS_ITS | Continuity of Care Document ---
Author Organization [facility] Address [address] [place] [address] Assessment No assessment recorded. Plan of Treatment Reminders Order Date Submit Date Provider Last Modified By Organization Details Last Modified Time Details Appointments Diabetic F/U 2024 04:00P M Treva Cortes, CIVIL PREPAREDNESS TRAINING OFFICER Not available Not available Not available Lab CBC w/ auto diff 2024 025 [facility] (Lab), [address] [place] [address] [address], [place], [address], 09/05/2024 13:39:22 lipid panel, serum 2024 025 [facility] (Lab), [address] [place] [address] [address], [place], [address], 09/11/2024 04:06:06 hemoglobi n A1c, QN, blood 2024 025 [facility] (Lab), [address] [place] [address] [address], [place], [address], 09/11/2024 04:06:07 CMP, serum or plasma 2024 025 [facility] (Lab), [address], [place], [address], 09/05/2024 14:12:25 TSH + free T4, serum 2024 025 [facility] (Lab), [address] [place] [address] [address], [place], [place], [address], 09/05/2024 14:12:26 vitamin B12 + folate, serum or blood 2024 025 [facility] (Lab), [address], [place], [place], [address], 09/05/2024 14:45:49 Referral dermatolo gist referral 2024 025 [facility], [address], [place], [address], 09/26/2024 10:55:23 gynecolog ist referral 2024 025 [facility] , [address] [place] [address], [place], [place], [address], 10/02/2024 09:06:29 Procedures None recorded. Surgeries None recorded. Imaging None recorded. Medication Orders ondansetr on 4 mg disintegr ating tablet 2024 025 [facility] [place], [address], 09/15/2024 05:01:23 dexametha sone sodium phosphate 4 mg/mL injection solution 2024 025 [facility] Not available 09/04/2024 16:52:38 mupirocin 2 % topical ointment 2024 025 [facility] [place], [address], 09/04/2024 16:54:30 Ozempic 1 mg/dose (4 mg/3 mL) subcutane ous pen injector 2024 025 [facility] [place], [address], 09/04/2024 16:56:55 Patient TargetsNo targets recorded. Patient InstructionsNo instructions recorded. Reason for Referral Operator Receptionist Referral for Ur inary incontinence Referring Physician: Treva Cortes [facility] Medicine, Encounter Date: 09/04/2024 Cardiac Technologist Referral for L esion of skin of face Referring Physician: Treva Cortes [facility] Medicine, Encounter Date: 09/04/2024 Problems Name Problem SNOMED Code Status Onset Date Resolution Date Notes Provider Name and Address Organization Details Recorded Time Hypertensive disorder 86469911 Active 2023 Treva Cortes APRN [address], [place], [address], [place] - [facility] 4 13:57:01 Hypothyroidism 88288006 Active 2023 Treva Cortes APRN [address], [place], [address], [place] - [facility] 4 13:57:03 Hypercholester olemia 42659649 Active 2023 Treva Cortes CIVIL PREPAREDNESS TRAINING OFFICER [address], [place], [address], [place] - [facility] 4 13:56:58 Type 2 diabetes mellitus 91802894 Active 2023 Treva Cortes CIVIL PREPAREDNESS TRAINING OFFICER [address], [place], [address], [place] - [facility] 4 13:57:21 Neuropathy 486872964 Active 2023 Treva Cortes APRN [address], [place], [address], [place] [facility] 4 13:57:06 Chronic back pain 786258256 Active 2023 Treva Cortes CIVIL PREPAREDNESS TRAINING OFFICER [address], [place], [address], [place] [facility] 4 13:56:55 Urinary incontinence 946788558 Active 2023 Treva Cortes APRN [address], [place], [address], [place] - [facility] 4 13:57:35 Vitamin D deficiency 82186861 Active 2024 Treva Cortes, CIVIL PREPAREDNESS TRAINING OFFICER [address], [place], [address], [place] - [facility] 5 08:35:05 Problem [...] Name and Address Organization Details Recorded Time 165204 aspirin medicatio n Not available Not available Not available 06/20/2023 [address] Ora Stears null, [place] - [facility] 4 13:53:41 Medications Name [...] Not Available Not Available No t Available OneTouch Ultra Test strips USE 1 STRIP TO [...] t Available Vitals Date Recorded Body height Respiratory rate Body mass index (BMI) Body weight Body temperature Heart rate Oxygen saturation Oxygen saturation in Arterial blood by Pulse oximetry Systolic blood pressure Diastolic blood pressure Provider Name and Address Organization Details Last Updated DateTime 156.85 cm 18 /min 33.7 kg/m2 18854.4 g 97.8 [degF] 84 /min 97 % 97 % 128 mm[Hg] 80 mm[Hg] Ora Dominguez [place] - [facility] 16:18:49 Social History Question Answer Notes LastModified by Organizat ion Details LastModified Time Tobacco Smoking Status Never Smoker Ora Dominguez null, [place] - [facility] 06/20/2023 13:42:05 Do You [...] Or The Highest Degree You Have Received? [id number] Information not available 06/20/2023 Have There Been Any Changes To Your Family Or Social Situation? No Information no t available 06/20/2023 What Is The Fluoride Status Of Your Home? Unknown Information not available 06/20/2023 Have You Recently Or Are You Planning To Travel To An Area With Zika Virus? No Information not available 02/14/2024 Do You Have A Medical Power Of Oracle Technical Developer? No Information not available 06/20/2023 What Was [...] anxious, or unable to sleep at night)? [id number] Information not available 06/20/2023 Do you have [...] Medical History Condition Response Anxiety Disorder Y Diabetes Y Obesity Y Vision or Eye Problems Y Degenerative Disc Disease Y Arthritis Y Acid Reflux (GERD) Y Diverticulitis Y Thyroid Problems Y Anemia Y Constipation Y Hypercholesterolemia Y Neuropathy Y Headaches Y Hypertension Y Gynecological History Statement/Question Response [...] Details Recorded Time Tdap 01/19/2012 completed Ora Dominguez null, [place] - [facility] 06/20/2023 13:53:29 Past Encounters Encounter ID Performer Location Encounter Start Date Encounter Closed Date Diagnosis/Indication Diagnosis SNOMED-CT Code Diagnosis ICD10 Code Diagnosis Note [id number] Treva Cortes APRN [address] [address] 09/04/2024 16:12:04 09/04/2024 16:52:04 Acute migraine 7298660898 27983 G43.909 Hypercholesterolemia 136 62203 E78.00 Hypertensive disorder 38 911008 I10 Hypothyroidism 19277530 E03.9 Neuropathy 075438823 G62 .9 Type 2 my betes mellitus 02568098 E11.9 Nausea and vomiting 1693 2000 R11.2 if worsen or no improvemen t return or go to er Urinary incontinence 165 970873 R32 Lesion of skin of face 9423834872 06 L98.9 Health Concerns Section Related Observation LastModified by Organization Detai ls LastModified Time None Recorded Concern Status LastModified by Organization Details LastModified Time None Recorded Payers Encounter Date Sequence Insurance Name Policy Number Policy Malagon Covered Member ID Malagon Member ID Guarantor Name 09/04/2024 1 [facility] (MEDICAID HMO) Alena Veliz [id number] Alena Veliz Notes Date Note Type Note Provider Name and Address Organization Details Recorded Time 09/04/2024 text/html 59 year old edyta lara who presents to the office today with concerns of vomiting, diarrhea, headache, sick x 2 days, states she gets sick at times with migraines- this like her normal migrainewants lab order to have labs done at [facility] has concerns also of sore on lower abdomen, she injected her ozempic shot standing up and she thinks it went right under the skinlesion on left nose- wants dermatology referral to [facility] to discuss weight lossstates urinary incontinence is getting worse Treva Cortes APRN [address], [place], [address], [place] - [facility] 09/04/2024 17:00:36 OBGyn Episode No OBEpisode recorded.
--- OUTSIDE RECORDS SUMMARY | 2024-10-05 09:55 | XMS_ITS | Clinical Summary ---
Author Organization Healthcare Address [address] [place] [id number] Care Team Providers Care Research Assistant Name Role Phone Treva Cortes GLORIA Primary Care Provider +1- [phone] Allergies Active Allergy Reactions Criticality Noted Date Comments Aspirin Other - please docum ent in the comment field Low 09/14/2021 Medications Semaglutide (OZEMPIC, 0.25 OR 0.5 MG/DOSE, SC) Inject under the skin 1 (one) time per week. Active levothyroxine (Synthroid, Levoxyl) 88 MCG tablet Take 88 mcg by mouth 1 (one) time each day before breakfast. Active lisinopril-hydr oCHLOROthiazide 20-12.5 MG tablet Take 1 tablet by mouth 1 (one) time each day. Active simvastatin (Zocor) 5 MG tablet Take 5 mg by mouth 1 (one) time each day. Active gabapentin (Neurontin) 400 MG capsule Take 400 mg by mouth 2 (two) times a day. Active Blood Glucose Monitoring Suppl (ONE TOUCH ULTRA 2) w/Device kit device kit See administration instructions. 03/04/20 21 Active OneTouch Ultra test strip USE 1 STRIP TO CHECK GLUCOSE THREE TIMES DAILY 10/31/19 22 Active Lancets (OneTouch Delica Plus Lufydx61N) [facility] See administration instructions. 12/10/19 22 Active Euthyrox 75 MCG tablet Take 80 mcg by mouth 1 (one) time each day. 03/06/20 21 Active buPROPion SR (Wellbutrin SR) 150 MG 12 hr tablet Take 150 mg by mouth 2 (two) times a day. 09/24/19 23 Active amantadine (Symmetrel) 100 MG tablet Take 100 mg by mouth 1 (one) time each day. 08/19/19 Active cyclobenzaprine (Flexeril) 10 MG tablet Take 10 mg by mouth 3 (three) times a day. 10/14/19 Active ibuprofen 800 MG tablet Take 800 mg by mouth if needed. 10/14/19 Active Ozempic, 0.25 or 0.5 MG/DOSE, 2 MG/3ML solution pen-injector Inject 2 mg under the skin every 7 (seven) days. 09/24/19 Active omeprazole (PriLOSEC) [address] capsuleIndicati ons:Gastroesoph ageal reflux disease, unspecified whether esophagitis present TAKE 1 CAPSULE BY MOUTH ONCE DAILY, DO NOT CRUSH OR CHEW 90 capsule 02/29/20 Active Active Problems No known active problems Family History Medical History Relation Name Comments Diabetes Brother Lung cancer Father Diabetes Mother Heart defect Mother Blood clots Sister 1 Diabetes Sister 1 Heart defect Sister 1 No Known Problems Sister 2 Relation Name Status Comments Brother Alive Father Mother Sister 1 Alive Sister 2 Alive Social History Tobacco Use Types Packs/Day Years Used Date Smoking Tobacco: Never Smokeless Tobacco: Never Tobacco Cessation:Counseling Given: Not Answered Alcohol Use Standard Drinks/Week Comments Never 0 (1 standard drink = 0.6 oz pur e alcohol) PHQ-2 Answer Date Recorded Patient Health Questionnaire-2 Score 1 01/13/2022 Comments Unknown Sex and Gender Information Value Date Recorded Sex Assigned at Not on file Legal Sex Female 8:30 PM EDT Gender Identity Not on file Sexual Orientation Not on file Last Filed Vital Signs Vital Sign Reading Time Taken Comments Blood Pressure 138/94 10/15/2022 3:44 PM EDT Pulse 101 05/31/2022 9:21 AM EST Temperature 36.8 C (98.2 F) 01/13/2022 10:35 AM EDT Respiratory Rate - - Oxygen Saturation 100% 05/31/2022 9:21 AM EST Inhaled Oxygen Concentration - - Weight 82.1 kg (181 lb) 10/15/2022 3:44 PM EDT Height 157.5 cm (5' 2 ) 10/15/2022 3:44 PM EDT Body Mass Index 33.11 10/15/2022 3:44 PM EDT Plan of Treatment Health Maintenance Due Date Last Done Comments [facility]-HIV Screening 1965 [facility]-Hepatitis C Screening 1964 [facility]-Infant/Child/Adol SDOH Screenings 1965 ONF-UEFBN-12 Vaccine (#1) 1969 [facility]- SDOH Screenings 1982 [facility]-Adult SDOH Screenings 1982 CT Colonography 2009 Colonoscopy 2009 FIT-DNA 2009 FIT 2009 FOBT 2009 Sigmoidoscopy 2009 [facility]-Colorectal Cancer Screening 2009 [facility]-Breast Cancer Screening 2014 [facility]-Pneumococcal Vaccine: 50 + Years (1 of 1 - PCV) 2014 [facility]-Zoster Vaccines (1 of 2) 2014 [facility]-DTaP,Tdap,and Td Vaccine s (2 - Td or Tdap) 01/18/2022 01/19/2012 [facility]-Depression Screening 01/13/2023 01/13/2022 [facility]-RSV Vaccine: 60+ Years o r (1 - Risk 60-74 years 1-dose series) 2024 [facility]-Influenza Vaccine (Seaso n Ended) 2024 [facility]-Obesity Intervention Completed 023, 05/31/2022, 01/13/2022 HPV Vaccines Aged Out No longer eligi ble based on patient's age to complete this topic [facility]-HIB Vaccines Aged Out No longer e ligible based on patient's age to complete this topic [facility]-Hepatitis A Vaccines Aged Out No longer eligible based on patient's age to complete this topic [facility]-IPV Vaccines Aged Out No longer e ligible based on patient's age to complete this topic [facility]-Rotavirus Vaccines Aged Out No lo nger eligible based on patient's age to complete this topic Insurance [employer] MEDICAID Care Teams Research Assistant Relationship Specialty Start Date End Date Treva Cortes APRN [address] [place] [address] PCP - General 09/14/21
[2024-10-05 10:48] LABS: Bilirubin,Direct 0.2 mg/dl (0.0-0.4); Bilirubin,Indirect 1.4 mg/dL (0.0-0.9); Bilirubin,Total 1.6 mg/dl (0.2-1.3); Bilirubin,Unconjugated 1.4 mg/dL (0.0-1.1)
[2024-10-10 03:36] LABS: ALT (SGPT) P5P 49 IU/L (0-40); AST (SGOT) P5P 45 IU/L (0-40); Alpha 2-Macroglobulins, Qn 239 mg/dL (110-276); Apolipoprotein A-1 137 mg/dL (116-209); Bilirubin, Total 0.4 mg/dL (0.0-1.2); Cholesterol, Total 162 mg/dL (100-199); Fibrosis Score 0.36 (0.00-0.21); Fibrosis Stage F1-F2 (.); GGT 25 IU/L (0-60); Glucose 103 mg/dL (70-99); Haptoglobin 57 mg/dL (33-346); Steatosis Score 0.53 (0.00-0.40); Triglycerides 135 mg/dL (0-149)
== END 2024-10-05 23:59 | disposition home or self-care (01) ==
LOC: LAB 09:53
PROVIDERS: PCP Nurse Practitioner Family; Visit Provider Nurse Practitioner Family
DX: K75.81 Nonalcoholic steatohepatitis (NASH) (principal)
CPT/HCPCS: 36415; 82172; 82247; 82248; 82465; 82947; 82977; 83010; 83883; 84450; 84460; 84478

== ENCOUNTER 2024-10-15 14:54 | Outpatient (POV) | payer OTHER, SELFPAY ==
--- OUTSIDE RECORDS SUMMARY | 2024-10-15 14:59 | XMS_ITS | Encounter Summary ---
Author Organization Healthcare Address [address] [place] [address] Care Team Providers Care Dominatrix Name Role Phone Treva Cortes MEDICAL SCIENTIFIC OFFICER Primary Care Provider +1- [phone] Reason for Visit * Reason Comments Med Refill Encounter Details Date Type Department Care Team (Late st Contact Info) Description 11/18/2022 Refill [facility] [address] [place] [address] Brenda Gutiérrez, MEDICAL SCIENTIFIC OFFICER [address] [place] [address] Gastroesophageal reflux disease, unspecified whether [...] 90 day supply with 0 refill(s) to [facility]. documented in this encounter Plan of [...] documented as of this encounter Care Teams Dominatrix Relationship Specialty Start Date End Date Treva Cortes APRN [address] [place] [address] PCP - General 09/14/21 documented as of this encounter
--- OUTSIDE RECORDS SUMMARY | 2024-10-15 14:59 | XMS_ITS | Encounter Summary ---
Author Organization Healthcare Address [address] [place] [id number] Care Team Providers Care Precinct Commanding Officer Name Role Phone Treva Cortes APRN Primary Care Provider +1- [phone] Reason for Referral * Consultation (Routine) - Closed Specialty Diagnoses / Procedures Referred By Contrina t Referred To Contact Endocrinology Diagnoses Diabetes mellitus without complication Multiple endocrine neoplasia (CMS/HCC) Treva Cortes APRN [address] [place] [address] Phone: tel: fax: [facility] [address] [place] [address] Phone: tel: fax: Referral ID Status Reason Start Date Expiration Date V isits Requested Visits Authorized [id number] Closed Specialty Services Required 07/28/2021 01/27/2023 1 1 Encounter Details Date Type Department Care Team (Late st Contact Info) Description 07/28/2021 [facility] [address] [place] [address] Treva Cortes APRN [address] [place] [id number] Diabetes mellitus without complication (CMS/HCC) (Primary [...] dysfunction documented in this encounter Care Teams Precinct Commanding Officer Relationship Specialty Start Date End Date Treva Cortes APRN [address] [place] [address] PCP - General 09/14/21 documented as of this encounter
--- OUTSIDE RECORDS SUMMARY | 2024-10-15 14:59 | XMS_ITS | Encounter Summary ---
Author Organization Healthcare Address [address] [place] [address] Care Team Providers Care Centrifugal Station Operator Name Role Phone Treva Cortes ATHLETIC INSTRUCTOR Primary Care Provider +1- [phone] Reason for Visit * Reason Comments Med Refill Encounter Details Date Type Department Care Team (Late st Contact Info) Description 07/22/2022 Refill [place] [facility] [address] [place] [address] Brenda Gutiérrez, ATHLETIC INSTRUCTOR [address] [place] [address] Gastroesophageal reflux disease, unspecified whether [...] 90 day supply with 0 refill(s) to [facility] pharmacy. documented in this encounter Plan [...] documented as of this encounter Care Teams Centrifugal Station Operator Relationship Specialty Start Date End Date Treva Cortes APRN [address] [place] [address] PCP - General 09/14/21 documented as of this encounter
--- OUTSIDE RECORDS SUMMARY | 2024-10-15 14:59 | XMS_ITS | Clinical Summary ---
Author Organization Healthcare Address [address] [place] [id number] Care Team Providers Care Crib Clerk Name Role Phone Treva Cortes GLORIA Primary Care Provider +1- [phone] Allergies Active Allergy Reactions Criticality Noted Date [...] 10/31/19 22 Active Lancets (OneTouch Delica Plus Kaiurz90F) [facility] See administration instructions. 12/10/19 22 Active Euthyrox [...] C Screening 1964 [facility]-Infant/Child/Adol SDOH Screenings 1964 [id number] Vaccine (#1) 1969 [facility]- SDOH Screenings 1982 [...] Insurance [employer] MEDICA[employer] Care Teams Crib Clerk Relationship Specialty Start Date End Date Treva Cortes APRN [address] [place] [address] PCP - General 09/14/21
--- OUTSIDE RECORDS SUMMARY | 2024-10-15 14:59 | XMS_ITS | Continuity of Care Document ---
Author Organization [facility] Address [address] [address] Assessment No assessment recorded. Plan of Treatment Reminders Order Date Submit Date Provider Last Modified By Organization Details Last Modified Time Details Appointments Diabetic F/U 2024 04:00P M Treva Cortes, CORK MOLDER Not available Not available Not available Lab CBC w/ auto diff 2024 025 [facility] (Lab), [address] [place] [address] [address], [place], [address], 09/05/2024 13:39:22 lipid panel, serum 2024 025 [facility] (Lab), [address] [place] [address] [address], [place], [address], 09/11/2024 04:06:06 hemoglobi n A1c, QN, blood 2024 025 [facility] (Lab), [address] [place] [address] [address], [place], [address], 09/11/2024 04:06:07 CMP, serum or plasma 2024 025 [facility] (Lab), [address], [place], [address], 09/05/2024 14:12:25 TSH + free T4, serum 2024 025 [facility] (Lab), [address], [place], [address], 09/05/2024 14:12:26 vitamin B12 + folate, serum or blood 2024 025 [facility] (Lab), [address], [place], [address], 09/05/2024 14:45:49 Referral dermatolo gist referral 2024 025 [facility], [address], [place], [address], 10/12/2024 11:30:18 gynecolog ist referral 2024 025 [facility] Mary Brar , [address], [address], [place], [address], 10/11/2024 10:30:36 Procedures None recorded. Surgeries None recorded. Imaging None recorded. Medication Orders ondansetr on 4 mg disintegr ating tablet 2024 025 [facility], [address] [place], [address], 09/15/2024 05:01:23 dexametha sone sodium phosphate 4 mg/mL injection solution 2024 025 ef[facility]man Not available 09/04/2024 16:52:38 mupirocin 2 % topical ointment 2024 [facility], [address] [place], [address], 09/04/2024 16:54:30 Ozempic 1 mg/dose (4 mg/3 mL) subcutane ous pen injector 2024 025 [facility], [address] [place], [address], 09/04/2024 16:56:55 Patient TargetsNo targets recorded. Patient InstructionsNo instructions recorded. Reason for Referral [employer] Teacher Referral for Ur inary incontinence Referring Physician: Treva Cortes [facility], Encounter Date: 09/04/2024 Filer Helper Referral for L esion of skin of face Referring Physician: Treva Cortes [facility], Encounter Date: 09/04/2024 Problems Name Problem SNOMED Code Status Onset Date Resolution Date Notes Provider Name and Address Organization Details Recorded Time Hypertensive disorder 05154697 Active 2023 Treva Cortes APRN [address], [place], [address], [place] - [facility] 13:57:01 Hypothyroidism 16181573 Active 2023 Treva Cortes APRN [address], [place], [address], [place] [facility] 13:57:03 Hypercholester olemia 79176417 Active 2023 Treva Cortes [employer] [address], [place], [address], [place] [facility] 4 13:56:58 Type 2 diabetes mellitus 36996655 Active 2023 Treva Cortes [employer] MOLDER [address], [place], [address], [place] [facility] 4 13:57:21 Neuropathy 649149747 Active 2023 Treva Cortes APRN [address], [place], [address], [place] [facility] 4 13:57:06 Chronic back pain 418961621 Active 2023 Treva Cortes [employer] MOLDER [address], [place], [address], [place] [facility] 4 13:56:55 Urinary incontinence 441748301 Active 2023 Treva Cortes APRN [address], [place], [address], [place] [facility] 4 13:57:35 Vitamin D deficiency 84642867 Active 2024 Treva Cortes, CORK MOLDER [address], [place], [address], [place] - [facility] 5 08:35:05 Problem [...] Name and Address Organization Details Recorded Time 792366 aspirin medicatio n Not available Not available Not available 06/20/2023 [address] [employer] Ora Stears null, [place] - [facility] 13:53:41 Medications Name Sig Start Date Stop [...] (vitamin D2) 1,250 mcg (50,000 unit) capsule Take 1 capsule by mouth once a week 2024 active Not Available Not Available Not Avai lable dexamethas one sodium phosphate 4 mg/mL injection solution Inject 1 mL as needed by intramus cular route. 2024 active Not Available Not Available Not Avai lable ondansetro n 4 mg disintegra ting tablet Place 1 tablet every 8 hours by translin al route as needed for 4 days. 09/15 [...] 5 156.85 cm 18 /min 33.7 kg/m2 26032.4 g 97.8 [degF] 84 /min 97 % [...] Or The Highest Degree You Have Received? [id number] Information not available 06/20/2023 Have There Been Any Changes To Your Family Or Social Situation? No Information no t available 06/20/2023 What Is The Fluoride Status Of Your Home? Unknown Information not available 06/20/2023 Have You Recently Or Are You Planning To Travel To An Area With Zika Virus? No Information not available 02/14/2024 Do You Have A Medical Power Of Home Fire Alarm Installer? No Information not available 06/20/2023 What Was [...] anxious, or unable to sleep at night)? [id number] Information not available 06/20/2023 Do you have [...] Immunizations Vaccine Type Date Status Note Provider Jose phelan and Address Organization Details Recorded Time Tdap 01/19/2012 completed Ora Dominguez [facility], [place] - [facility] 06/20/2023 13:53:29 Past Encounters Encounter ID Performer Location Encounter Start Date Encounter Closed Date Diagnosis/Indication Diagnosis SNOMED-CT Code Diagnosis ICD10 Code Diagnosis Note [id number] Treva Cortes APRN [address] [address] 09/04/2024 16:12:04 09/04/2024 16:52:04 Acute migraine 2557326020 97716 G43.909 Hypercholesterolemia 136 85504 E78.00 Hypertensive disorder 38 394332 I10 Hypothyroidism 72781071 E03.9 Neuropathy 129922509 G62 .9 Type 2 my betes mellitus 40670210 E11.9 Nausea and vomiting 1693 2000 R11.2 if worsen or no improvemen t return or go to er Urinary incontinence 165 672706 R32 Lesion of skin of face 8497788202 06 L98.9 Health Concerns Section Related Observation LastModified by Organization Detai ls LastModified Time None Recorded Concern Status LastModified by Organization Details LastModified Time None Recorded Payers Encounter Date Sequence Insurance Name Policy Number Policy Malagon Covered Member ID Malagon Member ID Guarantor Name 09/04/2024 1 [employer] [facility] (MEDICAID HMO) Alena Veliz [id number] Alena Veliz Notes Date Note Type Note Provider Name and Address Organization Details Recorded Time 09/04/2024 text/html 59 year old edyta lara who presents to the office today with concerns of vomiting, diarrhea, headache, sick x 2 days, states she gets sick at times with migraines- this like her normal migrainewants lab order to have labs done at [facility] has concerns also of sore on lower abdomen, she injected her ozempic shot standing up and she thinks it went right under the skinlesion on left nose- wants dermatology referral to [facility] to discuss weight lossstates urinary incontinence is getting worse Treva Cortes APRN [address], [place], [address], [place] - [facility] 09/04/2024 17:00:36 OBGyn Episode No OBEpisode recorded.
--- OUTSIDE RECORDS SUMMARY | 2024-10-15 14:59 | XMS_ITS | Data Portability ---
Author Organization [facility] Address [address] [facility] [place] [address] Assessment No assessment recorded. Plan of Treatment Reminders Order Date Submit Date Provider Last Modified By Organization Details Last Modified Time Details Appointments Diabetic F/U 2024 04:00P M Treva Cortes, DISTRICT ADMINISTRATOR Not available Not available Not available Lab CBC w/ auto diff 2024 025 [facility] (Lab), [address] [place] [address] [address], [place], [address], 09/05/2024 13:39:22 lipid panel, serum 2024 025 [facility] (Lab), [address] [place] [address] [address], [place], [address], 09/11/2024 04:06:06 hemoglobi n A1c, QN, blood 2024 025 [facility] (Lab), [address] [place] [address] [address], [place], [address], 09/11/2024 04:06:07 CMP, serum or plasma 2024 025 [facility] (Lab), [address], [place], [address], 09/05/2024 14:12:25 TSH + free T4, serum 2024 025 [facility] (Lab), [address], [place], [place], [address], 09/05/2024 14:12:26 vitamin B12 + folate, serum or blood 2024 025 [facility] (Lab), [address], [place], [place], [address], 09/05/2024 14:45:49 rapid strep group A, throat 2024 025 [facility], [address] [place] [address], [address], 07/05/2024 16:36:52 CMP, serum or plasma 2023 024 [facility], [address], [place], [place], [address], 02/15/2024 10:09:16 CBC w/ auto diff 2023 024 [facility], [address], [place], [place], [address], 02/15/2024 10:09:16 HbA1c (hemoglob in A1c), blood 2023 024 [facility], [address], [place], [place], [address], 02/15/2024 10:09:18 albumin/c reatinine , mass ratio, urine 2023 024 [facility], [address], [place], [place], [address], 02/15/2024 10:09:17 drug screen, urine 2023 024 [facility], [address] [place] [address], [address], 02/14/2024 13:40:43 lipid panel, serum 2023 024 [facility], [address], [place] F, [place], [address], 02/15/2024 10:09:16 vitamin D, 25-hydrox y, total, serum 2023 024 [facility], [address], [place] F, [place], [address], 02/15/2024 10:09:18 iron + total iron-bind ing capacity (TIBC), serum 2023 024 [facility], [address], [place] F, [place], [address], 02/15/2024 10:09:17 TSH + free T4, serum 2023 024 [facility], [address], [place] F, [place], [address], 02/15/2024 10:09:15 vitamin B12 + folate, serum or blood 2023 024 [facility], [address], [place], [place], [address], 02/15/2024 10:09:17 Referral dermatolo gist referral 2024 025 [facility], [address] [place] [address] , [address], [place], [address], 10/12/2024 11:30:18 gynecolog ist referral 2024 [facility] [address], [place] [address], [place], [address], 10/11/2024 10:30:36 Procedures None recorded. Surgeries None recorded. Imaging MRI, cervical spine, w/o contrast 2023 024 [facility] (X-Ray), [address], [place], [address], 09/07/2023 11:02:26 Medication Orders ondansetr on 4 mg disintegr ating tablet 2024 025 [facility], [address], [address], 09/15/2024 05:01:23 dexametha sone sodium phosphate 4 mg/mL injection solution 2024 [email or web address] Not available 09/04/2024 16:52:38 mupirocin 2 % topical ointment 2024 025 [facility], [address], [address], 09/04/2024 16:54:30 Ozempic 1 mg/dose (4 mg/3 mL) subcutane ous pen injector 2024 025 [facility], [address], [address], 09/04/2024 16:56:55 gabapenti n 600 mg tablet 2024 025 [facility], [address], [address], 07/05/2024 16:25:46 Cymbalta 30 mg capsule,d elayed release 2023 024 [facility], [address], [address], 02/14/2024 13:37:51 gabapenti n 600 mg tablet 2023 024 [facility], [address], [address], 11/14/2023 10:39:10 amitripty line 10 mg tablet 2023 024 [facility], [address], [address], 11/14/2023 10:43:33 ibuprofen 800 mg tablet [address] [facility], [address], [address], 02/14/2024 11:04:53 gabapenti n 600 mg tablet 2023 024 [facility], [address], [address], 08/15/2023 10:45:49 Patient TargetsNo targets recorded. Patient InstructionsNo instructions recorded. Reason for Referral Shank Carrier Referral for Ur inary incontinence Referring Physician: Treva Cortes [facility], Encounter Date: 09/04/2024 Director Of Property Management Referral for L esion of skin of face Referring Physician: Treva Cortes [facility], Encounter Date: 09/04/2024 Results Created Date Observation Date Name Description Value Unit Range Abnormal Flag Note LastModifiedBy Organization Detail LastModifiedTime 02/14/2002/15/2024 TSH+F REE T4 TSH 1.480 uIU/m L 0.450- 4.500 normal Not Available [facility] ([facility]) [address] [place], [address], 02/15/2024 10:09:15 02/14/2002/15/2024 TSH+F REE T4 T4,free(dire ct) 1.69 NG/dL 0.82-1 .77 normal Not Available [facility] ([facility]) [address] [place], [address], 02/15/2024 10:09:15 02/14/2002/15/2024 CBC WITH DIFFE RENTI AL/PL ATELE T WBC 12.0 x10e3 /uL 3.4-10 .8 above high normal Not Available [facility] ([facility]) [address] [place], [address], 02/15/2024 10:09:16 02/14/2002/15/2024 CBC WITH DIFFE RENTI AL/PL ATELE T RBC 5.25 x10e6 /uL 3.77-5 .28 normal Not Available [facility] ([facility]) [address] [facility], [place], [address], 02/15/2024 10:09:16 02/14/2002/15/2024 CBC WITH DIFFE RENTI AL/PL ATELE T hemoglobin 15.1 g/dL 11.1-1 5.9 normal Not Available [facility] ([facility]) [address] [facility], [place], [address], 02/15/2024 10:09:16 02/14/2002/15/2024 CBC WITH DIFFE RENTI AL/PL ATELE T hematocrit 46.8 % 34.0-4 6.6 above high normal Not Available [facility] ([facility]) [address] [facility], [place], [address], 02/15/2024 10:09:16 02/14/2002/15/2024 CBC WITH DIFFE RENTI AL/PL ATELE T MCV 89 fL 79-97 normal Not Available [facility] ([facility]) [address] [place], [address], 02/15/2024 10:09:16 02/14/2002/15/2024 CBC WITH DIFFE RENTI AL/PL ATELE T MCH 28.8 pg 26.6-3 3.0 normal Not Available [facility] ([facility]) [address] [place], [address], 02/15/2024 10:09:16 02/14/2002/15/2024 CBC WITH DIFFE RENTI AL/PL ATELE T MCHC 32.3 g/dL 31.5-3 5.7 normal Not Available [facility] ([facility]) [address] [facility], [place], [address], 02/15/2024 10:09:16 02/14/2002/15/2024 CBC WITH DIFFE RENTI AL/PL ATELE T RDW 13.0 % 11.7-1 5.4 Not Available [facility] ([facility]) [address] [facility], [place], [address], 02/15/2024 10:09:16 02/14/2002/15/2024 CBC WITH DIFFE RENTI AL/PL ATELE T platelets 371 x10e3 /uL 150-45 0 normal Not Available [facility] ([facility]) [address] [facility], [place], [address], 02/15/2024 10:09:16 02/14/2002/15/2024 CBC WITH DIFFE RENTI AL/PL ATELE T neutrophils 63 % not estab. normal Not Available [facility] ([facility]) [address] [facility], [place], [address], 02/15/2024 10:09:16 02/14/2002/15/2024 CBC WITH DIFFE RENTI AL/PL ATELE T lymphs 27 % not estab. normal Not Available [facility] ([facility]) [address] [facility], [place], [address], 02/15/2024 10:09:16 02/14/2002/15/2024 CBC WITH DIFFE RENTI AL/PL ATELE T monocytes 4 % not estab. normal Not Available [facility] ([facility]) [address] [facility], [place], [address], 02/15/2024 10:09:16 02/14/2002/15/2024 CBC WITH DIFFE RENTI AL/PL ATELE T eos 5 % not estab. normal Not Available [facility] ([facility]) [address] [facility], [place], [address], 02/15/2024 10:09:16 02/14/20 24 02/15/2024 CBC WITH DIFFE RENTI AL/PL ATELE T basos 1 % not estab. normal Not Available [facility] ([facility]) [address] [place], [address], 02/15/2024 10:09:16 02/14/20 24 02/15/2024 CBC WITH DIFFE RENTI AL/PL ATELE T immature cells SOLAR MANAGER Not Available [facility] ([facility]) [address] [place], [address], 02/15/2024 10:09:16 02/14/2002/15/2024 CBC WITH DIFFE RENTI AL/PL ATELE T neutrophils (absolute) 7.5 x10e3 /uL 1.4-7. 0 above high normal Not Available [facility] ([facility]) [address] [place], [address], 02/15/2024 10:09:16 02/14/20 24 02/15/2024 CBC WITH DIFFE RENTI AL/PL ATELE T lymphs (absolute) 3.3 x10e3 /uL 0.7-3. 1 above high normal Not Available [facility] ([facility]) [address] [place], [address], 02/15/2024 10:09:16 02/14/20 24 02/15/2024 CBC WITH DIFFE RENTI AL/PL ATELE T monocytes(ab solute) 0.5 x10e3 /uL 0.1-0. 9 normal Not Available [facility] ([facility]) [address] [place], [address], 02/15/2024 10:09:16 02/14/20 24 02/15/2024 CBC WITH DIFFE RENTI AL/PL ATELE T eos (absolute) 0.6 x10e3 /uL 0.0-0. 4 above high normal Not Available [facility] ([facility]) [address] [place], [address], 02/15/2024 10:09:16 02/14/20 24 02/15/2024 CBC WITH DIFFE RENTI AL/PL ATELE T baso (absolute) 0.1 x10e3 /uL 0.0-0. 2 normal Not Available [facility] ([facility]) [address] [facility], [place], [address], 02/15/2024 10:09:16 02/14/20 24 02/15/2024 CBC WITH DIFFE RENTI AL/PL ATELE T immature granulocytes 0 % not estab. Not Available [facility] ([facility]) [address] [facility], [place], [address], 02/15/2024 10:09:16 02/14/20 24 02/15/2024 CBC WITH DIFFE RENTI AL/PL ATELE T immature grans (abs) 0.0 x10e3 /uL 0.0-0. 1 Not Available [facility] ([facility]) [address] [facility], [place], [address], 02/15/2024 10:09:16 02/14/2002/15/2024 CBC WITH DIFFE RENTI AL/PL ATELE T NRBC SOLAR MANAGER Not Available [facility] ([facility]) [address] [facility], [place], [address], 02/15/2024 10:09:16 02/14/2002/15/2024 CBC WITH DIFFE RENTI AL/PL ATELE T hematology comments: SOLAR MANAGER Not Available [facility] ([facility]) [address] [facility], [place], [address], 02/15/2024 10:09:16 02/14/2002/15/2024 COMP. METAB OLIC PANEL (14) glucose 219 mg/dL 70-99 above high normal Not Available [facility] ([facility]) [address] [facility], [place], [address], 02/15/2024 10:09:16 02/14/20 24 02/15/2024 COMP. METAB OLIC PANEL (14) BUN 13 mg/dL 6-24 normal Not Available [facility] ([facility]) [address] [facility], [place], [address], 02/15/2024 10:09:16 02/14/20 24 02/15/2024 COMP. METAB OLIC PANEL (14) creatinine 0.90 mg/dL 0.57-1 .00 normal Not Available [facility] ([facility]) [address] [facility], [place], [address], 02/15/2024 10:09:16 02/14/2002/15/2024 COMP. METAB OLIC PANEL (14) eGFR 74 mL/mi n/1.7 3 >59 normal Not Available [facility] ([facility]) [address] [facility], [place], [address], 02/15/2024 10:09:16 02/14/20 24 02/15/2024 COMP. METAB OLIC PANEL (14) BUN/creatini ne ratio 14 9-23 normal Not Available [facility] ([facility]) [address] [facility], [place], [address], 02/15/2024 10:09:16 02/14/20 24 02/15/2024 COMP. METAB OLIC PANEL (14) sodium 135 mmol/ L 134-14 4 normal Not Available [facility] ([facility]) [address] [facility], [place], [address], 02/15/2024 10:09:16 02/14/20 24 02/15/2024 COMP. METAB OLIC PANEL (14) potassium 4.1 mmol/ L 3.5-5. 2 normal Not Available [facility] ([facility]) [address] [facility], [place], [address], 02/15/2024 10:09:16 02/14/20 24 02/15/2024 COMP. METAB OLIC PANEL (14) chloride 96 mmol/ L 96-106 normal Not Available [facility] ([facility]) [address] [facility] [place], [address], 02/15/2024 10:09:16 02/14/20 24 02/15/2024 COMP. METAB OLIC PANEL (14) carbon dioxide, total 21 mmol/ L 20-29 normal Not Available [facility] ([facility]) [address] [facility] [place], [address], 02/15/2024 10:09:16 02/14/20 24 02/15/2024 COMP. METAB OLIC PANEL (14) calcium 9.7 mg/dL 8.7-10 .2 normal Not Available [facility] ([facility]) [address] [facility] [place], [address], 02/15/2024 10:09:16 02/14/20 24 02/15/2024 COMP. METAB OLIC PANEL (14) protein, total 7.0 g/dL 6.0-8. 5 normal Not Available [facility] ([facility]) [address] [facility] [place], [address], 02/15/2024 10:09:16 02/14/20 24 02/15/2024 COMP. METAB OLIC PANEL (14) albumin 4.6 g/dL 3.8-4. 9 normal Not Available [facility] ([facility]) [address] [facility] [place], [address], 02/15/2024 10:09:16 02/14/20 24 02/15/2024 COMP. METAB OLIC PANEL (14) globulin, total 2.4 g/dL 1.5-4. 5 Not Available [facility] ([facility]) [address] [facility] [place], [address], 02/15/2024 10:09:16 02/14/20 24 02/15/2024 COMP. METAB OLIC PANEL (14) bilirubin, total 1.2 mg/dL 0.0-1. 2 normal Not Available [facility] ([facility]) [address] [facility] [place], [address], 02/15/2024 10:09:16 02/14/20 24 02/15/2024 COMP. METAB OLIC PANEL (14) alkaline phosphatase 133 IU/L 44-121 above high normal Not Available [facility] ([facility]) [address] [facility] [place], [address], 02/15/2024 10:09:16 02/14/20 24 02/15/2024 COMP. METAB OLIC PANEL (14) AST (SGOT) 42 IU/L 0-40 above high normal Not Available [facility] ([facility]) [address] [facility] [place], [address], 02/15/2024 10:09:16 02/14/20 24 02/15/2024 COMP. METAB OLIC PANEL (14) ALT (SGPT) 80 IU/L 0-32 above high normal Not Available [facility] ([facility]) [address] [facility] [place], [address], 02/15/2024 10:09:16 02/14/20 24 02/15/2024 LIPID PANEL cholesterol, total 195 mg/dL 100-19 9 normal Not Available [facility] ([facility]) [address] [facility] [place], [address], 02/15/2024 10:09:16 02/14/2002/15/2024 LIPID PANEL triglyceride s 124 mg/dL 0-149 normal Not Available [facility] ([facility]) [address] [facility] [place], [address], 02/15/2024 10:09:16 02/14/20 24 02/15/2024 LIPID PANEL HDL cholesterol 48 mg/dL >39 normal Not Available [facility] [address] [facility] [place], [address], 02/15/2024 10:09:16 02/14/20 24 02/15/2024 LIPID PANEL VLDL cholesterol lg 22 mg/dL 5-40 Not Available [facility] ([facility]) [address] [place], [address], 02/15/2024 10:09:16 02/14/20 24 02/15/2024 LIPID PANEL LDL chol calc ([facility]) 125 mg/dL 0-99 above high normal Not Available [facility] ([facility]) [address] [place], [address], 02/15/2024 10:09:16 02/14/2002/15/2024 LIPID PANEL LDL calc comment: SOLAR MANAGER Not Available [facility] ([facility]) [address] [place], [address], 02/15/2024 10:09:16 02/14/20 24 02/15/2024 IRON AND TIBC iron bind.cap.(TI BC) 323 ug/dL 250-45 0 normal Not Available [facility] ([facility]) [address] [place], [address], 02/15/2024 10:09:17 02/14/20 24 02/15/2024 IRON AND TIBC UIBC 249 ug/dL 131-42 5 normal Not Available [facility] ([facility]) [address] [place], [address], 02/15/2024 10:09:17 02/14/20 24 02/15/2024 IRON AND TIBC iron 74 ug/dL 27-159 normal Not Available [facility] ([facility]) [address] [place], [address], 02/15/2024 10:09:17 02/14/20 24 02/15/2024 IRON AND TIBC iron saturation 23 % 15-55 normal Not Available [facility]) [address] [place], [address], 02/15/2024 10:09:17 02/14/20 24 02/15/2024 ALBUM IN/CR EATIN INE RATIO ,URIN E creatinine, urine 26.3 mg/dL not estab. normal Not Available [facility] ([facility]) [address] [facility], [place], [address], 02/15/2024 10:09:17 02/14/20 24 02/15/2024 ALBUM IN/CR EATIN INE RATIO ,URIN E albumin, urine <3.0 ug/mL not estab. Not Available [facility] ([facility]) [address] [facility], [place], [address], 02/15/2024 10:09:17 02/14/20 24 02/15/2024 ALBUM IN/CR EATIN INE RATIO ,URIN E alb/creat ratio <11 mg/g_ creat 0-29 Comfort l: 0 - 29 Moder ately incre ased: 30 - 300 Sever shreyas incre ased: >300 Not Available [facility] ([facility]) [address] [facility], [place], [address], 02/15/2024 10:09:17 02/14/20 24 02/15/2024 VITAM IN B12 AND FOLAT E vitamin B12 250 pg/mL 232-12 45 normal Not Available [facility] ([facility]) [address] [facility], [place], [address], 02/15/2024 10:09:17 02/14/20 24 02/15/2024 VITAM IN B12 AND FOLAT E folate (folic acid), serum 8.0 NG/mL >3.0 normal A serum folat e cj ntrat ion of less than 3.1 ng/mL is consi dered to repre sent clini lg defic iency . Not Available [facility] ([facility]) [address] [facility], [place], [address], 02/15/2024 10:09:17 02/14/20 24 02/15/2024 HEMOG LOBIN A1C hemoglobin A1C 7.1 % 4.8-5. 6 above high normal Predi abete s: 5.7 - 6.4 Diabe hubert: >6.4 Glyce jessica contr ol for adult s with diabe hubert: <7.0 Not Available [facility] ([facility]) [address] [facility], [place], [address], 02/15/2024 10:09:18 02/14/20 24 02/15/2024 VITAM IN [...] Medic ine). 2009. Dieta ry refer ence intandre es for calci um and D. Tarsha mcrae [place]: [facility] . 2. Fara tan MF, Shaunna ey [place], Jose off-F errar i ALLEN, et al. Evalu ation , treat ment, and preve ntion of vitam in D defic iency : an Endoc rine Socie ty clini lg pract ice guide line. JCEM. 2010; 96(7) :1911 -30. Not Available [facility] ([facility]) [address] [facility], [place], [address], 02/15/2024 10:09:18 02/14/20 24 02/14/2024 drug scree n, urine THC negati ve Not Available [address], [address], 02/14/2024 11:42:13 02/14/2002/14/2024 drug scree n, urine TCA positi ve Not Available [address], [address], 02/14/2024 11:42:13 02/14/2002/14/2024 drug scree n, urine BAR negati ve Not Available [address], [address], 02/14/2024 11:42:13 02/14/2002/14/2024 drug scree n, urine BZO negati ve Not Available [address], [address], 02/14/2024 11:42:13 02/14/2002/14/2024 drug scree n, urine MTD negati ve Not Available [address], [address], 02/14/2024 11:42:13 02/14/2002/14/2024 drug scree n, urine AMP negati ve Not Available [address], [address], 02/14/2024 11:42:13 02/14/2002/14/2024 drug scree n, urine MOP negati ve Not Available [address], [address], 02/14/2024 11:42:13 02/14/2002/14/2024 drug scree n, urine OXY negati ve Not Available [address], [address], 02/14/2024 11:42:13 02/14/2002/14/2024 drug scree n, urine MDMA negati ve Not Available [address], [address], 02/14/2024 11:42:13 02/14/20 24 02/14/2024 drug scree n, urine TABBY negati ve Not Available [address], [address], 02/14/2024 11:42:13 02/14/2002/14/2024 drug scree n, urine PCP negati ve Not Available [address], [address], 02/14/2024 11:42:13 02/14/2002/14/2024 drug scree n, urine MET negati ve Not Available [address], [address], 02/14/2024 11:42:13 07/06/19 25 07/05/2024 rapid strep group A, throa t Strep negati ve Not Available [address], [address], 07/05/2024 15:53:42 07/06/19 25 07/05/2024 rapid strep group A, throa t Culture No Not Available [address], [address], 07/05/2024 15:53:42 07/22/19 24 07/21/2023 XR, cervi lg spine , 2 or 3 view No observ ation record ed. [facility] [address], [place], [address], 07/22/2023 14:36:08 09/07/19 24 09/07/2023 MRI, cervi lg spine , w/o contr ast No observ ation record ed. [facility] [address], [place], [address], 09/16/2023 11:40:41 03/01/2002/27/2024 US, liver No observ ation record ed. [facility] [address], [place], [address], 03/05/2024 10:46:01 Result Notes None recorded. Problems Name Problem SNOMED Code Status Onset Date Resolution Date Notes Provider Name and Address Organization Details Recorded Time Hypertensive disorder 48820700 Active 2023 Treva Cortes, DISTRICT ADMINISTRATOR [address], [place], [address], [place] - [facility] 4 13:57:01 Hypothyroidism 36382169 Active 2023 Treva Cortes, DISTRICT ADMINISTRATOR [address], [place], [address], [place] [facility] 4 13:57:03 Hypercholester olemia 58810144 Active 2023 Treva Cortes, DISTRICT ADMINISTRATOR [address], [place], [address], [place] [facility] 4 13:56:58 Type 2 diabetes mellitus 39450402 Active 2023 Treva Cortes, DISTRICT ADMINISTRATOR [address], [place], [address], [place] [facility] 4 13:57:21 Neuropathy 933816276 Active 2023 Treva Cortes, DISTRICT ADMINISTRATOR [address], [place], [address], [place] [facility] 4 13:57:06 Chronic back pain 977018679 Active 2023 Treva Cortes, DISTRICT ADMINISTRATOR [address], [place], [address], [place] [facility] 4 13:56:55 Urinary incontinence 701991208 Active 2023 Treva Cortes, DISTRICT ADMINISTRATOR [address], [place], [address], [place] - [facility] 4 13:57:35 Vitamin D deficiency 42263012 Active 2024 Treva Cortes, DISTRICT ADMINISTRATOR [address], [place], [address], [place] - [facility] 5 08:35:05 Problem [...] Name and Address Organization Details Recorded Time 325786 aspirin medicatio n Not available Not available [...] Not Available Not Available No t Available [employer] Ultra Test strips USE 1 STRIP TO [...] Updated DateTime 5 156.85 cm 33.2 kg/m2 22995.6 3 g 96 % 96 % 85 [...] 4 156.85 cm 18 /min 34.3 kg/m2 14492.1 8 g 97.4 [degF] 92 /min 98 [...] 5 156.85 cm 18 /min 33.7 kg/m2 45359.4 g 97.8 [degF] 84 /min 97 % [...] Updated DateTime 4 156.85 cm 34.8 kg/m2 29640.9 6 g 97.8 [degF] 89 /min 97 % 97 % 20 /min 124 mm[Hg] 82 mm[Hg] Jocelyn Roman [place] - [facility] 4 10:11:57 Date Recorded Body height Body mass index (BMI) Body weight Heart rate Oxygen saturation Oxygen saturation in Arterial blood by Pulse oximetry Respiratory rate Body temperature Systolic blood pressure Diastolic blood pressure Provider Name and Address Organization Details Last Updated DateTime 4 156.85 cm 34.3 kg/m2 50196.8 8 g 93 /min 97 % 97 % 18 /min 98.7 [degF] 132 mm[Hg] 78 mm[Hg] Jocelyn Roman [place] - [facility] 4 11:04:18 Social History Question Answer Notes LastModified by Organizat ion Details LastModified Time Tobacco Smoking Status Never Smoker Ora Garciabeti neri [place] - [facility] 06/20/2023 13:42:05 Do You [...] Or The Highest Degree You Have Received? [id number] Information not available 06/20/2023 Have There Been Any Changes To Your Family Or Social Situation? No Information no t available 06/20/2023 What Is The Fluoride Status Of Your Home? Unknown Information not available 06/20/2023 Have You Recently Or Are You Planning To Travel To An Area With Zika Virus? No Information not available 02/14/2024 Do You Have A Medical Power Of Damage Prevention Coordinator? No Information not available 06/20/2023 What Was [...] Functional Status Question Answer Note LastModified by [employer] ion Details LastModified Time Do you or [...] anxious, or unable to sleep at night)? [id number] Information not available 06/20/2023 Do you have [...] Organization Details Recorded Time Tdap 01/19/2012 completed RENETTA [place] - [facility] 06/20/2023 13:53:29 Past Encounters Encounter ID Performer Location Encounter Start Date Encounter Closed Date Diagnosis/Indication Diagnosis SNOMED-CT Code Diagnosis ICD10 Code Diagnosis Note [id number] Treva Simentaljose [address] [address] 06/20/2023 13:32:59 06/20/2023 14:48:07 Long-term drug therapy 301192046 Z79.899 Neuropathy 544894643 G62 .9 Pt compliant with plan of careKasper reviewedme dication compliance discussedL ast uds: 4Control substance agreement on file Chronic back pain 488746 002 G89.29 will obtain labs and records Type 2 my betes mellitus 02788632 E11.9 obtain labs and records for next visit [id number] Treva Cortes [address] [address] 07/18/2023 10:22:12 07/18/2023 10:48:27 Body mass index 30+ - obesity 653995340 Z68.33 Obesity 447827616 E66.9 Neuropathy 657473389 G62 .9 Pt compliant with plan of careKasper reviewedme dication compliance discussedL ast uds: 4Control substance agreement on file Chronic back pain 446274 002 G89.29 Neck pain 27888905 M54.2 monitor glucose close while on steroids [id number] Treva Cortes [address] [address] 08/15/2023 10:11:06 08/15/2023 10:46:33 Neuropathy 110589557 G62.9 Pt compliant with plan of careKasper reviewedme dication compliance discussedL ast uds: 4Control substance agreement on file Type 2 my betes mellitus 45559989 E11.9 obtain labs and records for next visit Chronic back pain 422540 002 G89.29 Pain in right arm 288058 004 M79.601 Paresthesi a of upper limb 87693315 R20.2 [id number] Stormnel Cortes [place] [address]64[address] 1 11/14/2023 09:54:44 11/14/2023 10:44:16 Type 2 diabetes mellitus 94515094 E11.9 labs done at old office in august Neuropathy 718563801 G62 .9 Pt compliant with plan of careKasper reviewedme dication compliance discussedL ast uds: 4Control substance agreement on filefollow up with pain mangement and neurosurge ry [id number] Stormnel Cortes [address] [address] 02/14/2024 10:46:17 02/14/2024 12:04:49 Hypercholesterolemia 96000964 E78.00 Hypertensive disorder 38 306495 I10 Hypothyroidism 08924737 E03.9 Neuropathy 242528463 G62 .9 Pt compliant with plan of careKasper reviewedme dication compliance discussedL ast uds:Control substance agreement on filefollow up with pain mangement and neurosurge ry Type 2 my betes mellitus 97345002 E11.9 Depressive disorder 3548 9007 F32.A slight increase with cymbalta Fatigue 31520591 R53.83 Memory impairment 036503 006 R41.3 Long-term drug therapy 484703252 Z79.076 [id number] Treva Simentaljose [address] [address] 07/05/2024 15:36:11 07/05/2024 16:48:36 Pharyngitis 294146308 J02.9 Chronic back pain 442645 002 G89.29 Neuropathy 042703743 G62 .9 Pt compliant with plan of careKasper reviewedme dication compliance discussedL ast uds:Control substance agreement on file [id number] Treva Simentaljose [address] [address] 09/04/2024 16:12:04 09/04/2024 16:52:04 Acute migraine [id number] 34071 G43.909 Hypercholesterolemia 136 94257 E78.00 Hypertensive disorder 38 130490 I10 Hypothyroidism 42094421 E03.9 Neuropathy 095167902 G62 .9 Type 2 my betes mellitus 77061492 E11.9 Nausea and vomiting 1693 1999 R11.2 if worsen or no improvemen t return or go to er Urinary incontinence 165 989637 R32 Lesion of skin of face 4136191054 06 L98.9 Health Concerns Section Related Observation LastModified by Organization Detai ls LastModified Time None Recorded Concern Status LastModified by Organization Details LastModified Time None Recorded Advance Directives Directive N: Payers Insurance Date Sequence Insurance Name Policy Number Policy Malagon Covered Member ID Malagon Member ID Guarantor Name 09/24/2024 [place] [employer] [place]MEDICAID) Alena Siddiqui Veliz [id number] Alena Mckaygh 09/24/2024 1 [employer]ETNA [facility] (MEDICAID HMO) Alena S Veliz [id number] Alena Mckaygh Notes Date Note Type Note Provider Name [...] she is working Treva Cortes APRN [address], [place], [address], [facility] - [facility] 08/15/2023 13:08:15 11/14/2023 text/html 58 yr old female presents for a diabetes follow up. She needs a few medication refills. pt states gabapentin is helping but still having the numbness in hands. pt states she missed neurosurgery appointment but will call to get new appointment. sees pain management for injections Treva Cortes APRN [address], [place], [address], [facility] - [facility] 11/14/2023 10:44:11 02/14/2024 text/html Diabetes [...] forgetful Treva Cortes APRN [address], [place], [address], [place] - [facility] 03/06/2024 10:58:20 07/05/2024 text/html 58 yr old female presents with a sore throat and needs to refill her gabapentin. She is interested in letting pain management prescribe her gabapentin but they told her they needed something in writing from PCP. Treva Cortes APRN [address], [place], [address], [place] - [facility] 07/05/2024 16:29:41 09/04/2024 text/html 59 year old edyta lara who presents to the office today with concerns of vomiting, diarrhea, headache, sick x 2 days, states she gets sick at times with migraines- this like her normal migrainewas lab order to have labs done at [facility] has concerns also of sore on lower abdomen, she injected her ozempic shot standing up and she thinks it went right under the skinlesion on left nose- wants dermatology referral to [facility] to discuss weight lossstates urinary incontinence is getting worse Treva Cortes APRN [address], [place], [address], [place] - [facility] 09/04/2024 17:00:36 OBGyn Episode No OBEpisode recorded.
[2024-10-15 15:15] VITALS: BP 133/67; PULSE 83; RESP 16; O2SAT 99; BMI 34.0
--- NOTE | 2024-10-15 15:22 | EXP.PAIN.SOA ---
[facility] Disclaimer: The information contained in this section may have been updated after the patient was seen, as this information can be updated by other users. Medical History Hypothyroid HLD (hyperlipidemia) Left hip pain Low Back Pain Family History Other No significant family history Social History Smoking Status: Never smoker alcohol intake: never substance use type: denies use current occupational status: other Travel in the last 8 weeks?: None household members: family housing: house number of children: 3 current occupation: [employer] current occupational exposures/hazards: No caffeine: Yes PM Subjective & Objective Subjective Subjective:: Patient is a pleasant 59-year-old female who presents today for follow-up of her psychological evaluation. She does rated her pain today a 7 out of 10. She denies any new trauma or injury. Patient does state that she does want to proceed forward with the pump trial. Patient denies having heard any update on the neurosurgery consult that we did send. Patient does states she does need refills on her medications. Patient is currently managed with ropinirole 0.5 mg at bedtime, gabapentin 600 mg twice a day and Flexeril 50 mg 3 times a day. She denies any side effects. Her Nixon has been reviewed and is appropriate. Review of Systems: General: No recent weight changes, no fever, no sleep disturbances Respiratory: No cough, no shortness of air, no recurring pulmonary infections Cardiovascular/peripheral vascular: No chest pain, no palpitations, no edema, no shortness of breath Gastrointestinal: No new onset incontinence, normal bowel movements reported Genitourinary: No new onset incontinence Musculoskeletal: Chronic back pain Psychiatric: [Normal mood/affect] Neurological: [Denies weakness in extremities], [denies balance issues] Pain at rest (0-10 scale): 7 Objective Objective:: Physical Exam: General: Alert and oriented x3, no acute distress, pleasant and cooperative Lungs: Respirations even and unlabored, symmetrical chest expansion Eyes: PERRL Musculoskeletal: Flexion and extension of lumbar [spine] somewhat guarded secondary to pain, [antalgic gait noted] Neurological: Speech clear, no gross sensory deficit Has patient had previous pain injection?: No Conservative treatment options previously tried: Prescription medications (Longer than 12 weeks) Length of treatment: Longer than 12 weeks Meds Home Medications and Allergies Home Medications ?Medication ?Instructions ?Recorded ?Confirmed ?Type blood-glucose meter 06/26/21 10/15/24 History flash glucose sensor 06/26/21 10/15/24 History lancets 33 gauge #100 ea 02/20/22 10/15/24 Rx ondansetron 4 mg disintegrating 4 mg PO Q8H PRN nausea and 05/20/22 10/15/24 Rx tablet vomiting #30 tabs simvastatin 5 mg tablet See Rx Instructions .Route 03/01/23 10/15/24 Rx .COMPLEX #90 tabs semaglutide 0.25 mg or 0.5 mg (2 See Rx Instructions .Route 04/01/23 10/15/24 Rx mg/3 mL) subcutaneous pen injector .COMPLEX . #3 mL (Ozempic) cholecalciferol (vitamin D3) 1,250 1,250 mcg PO WEEKLY #7 tabs 05/02/23 10/15/24 Rx mcg (50,000 unit) tablet cholecalciferol (vitamin D3) 50 50 mcg PO DAILY #30 caps 05/02/23 10/15/24 Rx mcg (2,000 unit) capsule amitriptyline 10 mg tablet See Rx Instructions .Route 06/27/23 10/15/24 Rx .COMPLEX #90 tabs blood sugar diagnostic (OneTouch #100 ea 08/15/23 10/15/24 Rx Ultra Test strips) lisinopril 20 See Rx Instructions .Route 10/19/23 10/15/24 Rx mg-hydrochlorothiazide 12.5 mg .COMPLEX #90 tabs tablet duloxetine 30 mg capsule,delayed 30 mg PO DAILY To help my 03/27/24 10/15/24 History release (Cymbalta) neuropathy omeprazole 40 mg capsule,delayed 40 mg PO DAILY #90 caps 03/27/24 10/15/24 Rx release levothyroxine 88 mcg tablet See Rx Instructions .Route 08/26/24 10/15/24 Rx .COMPLEX #30 tabs methocarbamol 750 mg tablet See Rx Instructions .Route 09/05/24 10/15/24 Rx .COMPLEX #90 tabs gabapentin 600 mg tablet 600 mg PO BID #60 tabs 09/13/24 10/15/24 Rx ropinirole 0.5 mg tablet 0.5 mg PO HS #14 tabs 09/13/24 10/15/24 Rx tramadol 50 mg tablet 50 mg PO TID #90 tabs 09/13/24 10/15/24 Rx magnesium 250 mg tablet 250 mg PO BID PRN supplement 09/25/24 10/15/24 History mecobalamin (vitamin B12) 500 mcg 500 mcg PO DIRECTED 09/25/24 10/15/24 History chewable tablet polyethylene glycol 3350 17 17 g PO DAILY #510 grams 09/25/24 10/15/24 Rx gram/dose oral powder (Miralax) psyllium husk 3.4 gram/5.4 gram 1 tbsp PO DAILY #660 grams 09/25/24 10/15/24 Rx oral powder (Metamucil) New Prescriptions to Start Prescriptions: Allergies Allergy/AdvReac Type Severity Reaction Status Date / Time No Known Allergies Allergy Verified 09/25/24 13:13 Assessment and Plan *Assessment and plan (1) Chronic back pain: Status: Acute Category: Medical Code(s): M54.9 - Dorsalgia, unspecified; G89.29 - Other chronic pain (2) Chronic pain syndrome: Status: Acute Category: Medical Code(s): G89.4 - Chronic pain syndrome (3) Bilateral sacroiliitis: Status: Acute Category: Medical Code(s): M46.1 - Sacroiliitis, not elsewhere classified Plan I did review over with her following her psychological evaluation and she was deemed an appropriate candidate of the pump trial. Patient has had updated imaging and was sent for referral to neurosurgery. I did discuss with her that we will check him on the referral and see if we can get her a follow-up date. I will send in refills and have her back in 1 month for reevaluation of symptoms and plan of care. Patient agrees with this option. Risks and benefits of the medication have been explained in detail to the patient. The patient does understand the risk of dependence on the medication when given over a prolonged period. Patient has been advised of risks of oversedation with the prescribed medication. Narcan has been offered to the paitent in the event of oversedation. Patient has been advised that a family member should also be educated regarding administration of Narcan. The patient has been advised to consult with his/her primary care provider and pharmacist regarding drug-drug interaction of medications currently prescribed. Patient has been prescribed a controlled substance after being counseled on the medication, medication safety, and possible side effects. Opioid contract was reviewed and signed by the patient, and that they have agreed to all of the terms set forth by our compliance program. A UDS is needed to verify patient's compliance with our office pain contract. This is ordered based off specific treatments related to chronic pain with the potential to abuse certain medications. Patient has been instructed to contact the clinic with any concerns before the next appointment. Dr. Padilla has reviewed this note and agrees with this plan of care. This note was dictated using voice recognition software and make contain errors or omissions.
== END 2024-10-15 23:59 | disposition home or self-care (01) ==
PROVIDERS: PCP Nurse Practitioner Family; Visit Provider Nurse Practitioner Family
DX: M46.1 Sacroiliitis, not elsewhere classified (principal); G89.4 Chronic pain syndrome; Z79.899 Other long term (current) drug therapy
CPT/HCPCS: 99212; G0463

== ENCOUNTER 2024-12-06 15:17 | Outpatient (POV) | payer OTHER, SELFPAY ==
--- OUTSIDE RECORDS SUMMARY | 2024-12-06 15:21 | XMS_ITS | Encounter Summary ---
Author Organization Healthcare Address [address] [place] [address] Care Team Providers Care Sap Pi Architect Name Role Phone Treva Cortes METAL MIXER Primary Care Provider [phone]- [phone] Reason for Visit * Reason Comments Med Refill Encounter Details Date Type Department Care Team (Late st Contact Info) Description 11/18/2022 Refill [facility] [address] [place] [address] Brenda Gutiérrez, METAL MIXER [address] [place] [address] Gastroesophageal reflux disease, unspecified whether [...] 90 day supply with 0 refill(s) to [facility]. documented in this encounter Plan [...] documented as of this encounter Care Teams Sap Pi Architect Relationship Specialty Start Date End Date Treva Cortes APRN [address] [place] [address] PCP - General 09/14/21 documented as of this encounter
--- OUTSIDE RECORDS SUMMARY | 2024-12-06 15:21 | XMS_ITS | Encounter Summary ---
Author Organization Healthcare Address [address] [place] [id number] Care Team Providers Care Telesales Specialist Name Role Phone Treva Cortes APRN Primary Care Provider [phone]- [phone] Reason for Referral * Consultation (Routine) - Closed Specialty Diagnoses / Procedures Referred By Contrina t Referred To Contact Endocrinology Diagnoses Diabetes mellitus without complication Multiple endocrine neoplasia (CMS/HCC) Treva Cortes APRN [address] [place] [address] Phone: tel: fax: [facility] [address] [place] [address] Phone: tel: fax: Referral ID Status Reason Start Date Expiration Date V isits Requested Visits Authorized [id number] Closed Specialty Services Required 07/28/2021 01/27/2023 1 1 Encounter Details Date Type Department Care Team (Late st Contact Info) Description 07/28/2021 Community [facility] [address] [place] [address] Treva Cortes APRN [address] [place] [address] Diabetes mellitus without complication (CMS/HCC) (Primary [...] dysfunction documented in this encounter Care Teams Telesales Specialist Relationship Specialty Start Date End Date Treva Cortes APRN [address] [place] [address] PCP - General 09/14/21 documented as of this encounter
--- OUTSIDE RECORDS SUMMARY | 2024-12-06 15:21 | XMS_ITS | Encounter Summary ---
Author Organization Healthcare Address [address] [place] [address] Care Team Providers Care Hearing Aid Fitter Name Role Phone Treva Cortes ART INSTRUCTOR Primary Care Provider [phone]- [phone] Reason for Visit * Reason Comments Med Refill Encounter Details Date Type Department Care Team (Late st Contact Info) Description 07/22/2022 Refill [place] [facility] [address] [place] [address] Brenda Gutiérrez, ART INSTRUCTOR [address] [place] [address] Gastroesophageal reflux disease, unspecified whether [...] 90 day supply with 0 refill(s) to [facility] pharmacy. documented in this encounter Plan [...] documented as of this encounter Care Teams Hearing Aid Fitter Relationship Specialty Start Date End Date Treva Cortes APRN [address] [place] [address] PCP - General 09/14/21 documented as of this encounter
--- OUTSIDE RECORDS SUMMARY | 2024-12-06 15:21 | XMS_ITS | Clinical Summary ---
Author Organization Healthcare Address [address] [place] [id number] Care Team Providers Care Manager Pulmonary Name Role Phone Treva Cortes GLORIA Primary Care Provider +1- [phone] Allergies Active Allergy Reactions Criticality Noted Date [...] 10/31/19 22 Active Lancets (OneTouch Delica Plus [id number]) [facility] See administration instructions. 12/10/19 [...] C Screening 1965 [facility]-Infant/Child/Adol SDOH Screenings 1964 [id number] Vaccine (#1) 1969 [facility]- SDOH Screenings 1982 [...] 60-74 years 1-dose series) 2024 [facility]-Influenza Vaccine (#1) 2024 [facility]-Obesity Intervention Completed 023, 05/31/2022, 01/13/2022 [...] age to complete this topic Insurance AETNA [facility] MEDICAID Care Teams Manager Pulmonary Relationship Specialty Start Date End Date Treva Cortes APRN [address] [place] [address] PCP - General 09/14/21
[2024-12-06 15:34] VITALS: BP 110/78; PULSE 73; RESP 14; O2SAT 97; BMI 32.6
--- NOTE | 2024-12-06 15:57 | EXP.PAIN.SOA ---
[facility] Disclaimer: The information contained in this section may have been updated after the patient was seen, as this information can be updated by other users. Medical History Hypothyroid HLD (hyperlipidemia) Left hip pain Low Back Pain Family History Other No significant family history Social History Smoking Status: Never smoker alcohol intake: never substance use type: denies use current occupational status: other Travel in the last 8 weeks?: None household members: family housing: house number of children: 3 current occupation: [employer] current occupational exposures/hazards: No caffeine: Yes PM Subjective & Objective Subjective Subjective:: Patient is a pleasant 59-year-old female who presents today for 1 month follow-up and medication refill. She rates her pain an 8 out of 10. She denies any new trauma or injury. Patient is currently managed with ropinirole 0.5 mg at bedtime, gabapentin 600 mg twice a day, methocarbamol 750 mg 3 times a day and tramadol 50 mg 3 times daily. She denies any side effects. She does state that she has not heard any updates from the neurosurgeon. She does also make mention however that her [id number] lost her job so the pump trial itself would have to be put on hold because she cannot afford to take off. Her Nixon has been reviewed and is appropriate. Review of Systems: General: No recent weight changes, no fever, no sleep disturbances Respiratory: No cough, no shortness of air, no recurring pulmonary infections Cardiovascular/peripheral vascular: No chest pain, no palpitations, no edema, no shortness of breath Gastrointestinal: No new onset incontinence, normal bowel movements reported Genitourinary: No new onset incontinence Musculoskeletal: Chronic low back pain Psychiatric: [Normal mood/affect] Neurological: [Denies weakness in extremities], [denies balance issues] Pain at rest (0-10 scale): 8 Objective Objective:: Physical Exam: General: Alert and oriented x3, no acute distress, pleasant and cooperative Lungs: Respirations even and unlabored, symmetrical chest expansion Eyes: PERRL Musculoskeletal: Flexion and extension of lumbar [spine] somewhat guarded secondary to pain, [antalgic gait noted] Neurological: Speech clear, no gross sensory deficit Has patient had previous pain injection?: No Conservative treatment options previously tried: Home exercise plan Length of treatment: Longer than 12 weeks Meds Home Medications and Allergies Home Medications ?Medication ?Instructions ?Recorded ?Confirmed ?Type blood-glucose meter 06/26/21 12/06/24 History flash glucose sensor 06/26/21 12/06/24 History lancets 33 gauge #100 ea 02/20/22 12/06/24 Rx ondansetron 4 mg disintegrating 4 mg PO Q8H PRN nausea and 05/20/22 12/06/24 Rx tablet vomiting #30 tabs simvastatin 5 mg tablet See Rx Instructions .Route 03/01/23 12/06/24 Rx .COMPLEX #90 tabs semaglutide 0.25 mg or 0.5 mg (2 See Rx Instructions .Route 04/01/23 12/06/24 Rx mg/3 mL) subcutaneous pen injector .COMPLEX . #3 mL (Ozempic) cholecalciferol (vitamin D3) 1,250 1,250 mcg PO WEEKLY #7 tabs 05/02/23 12/06/24 Rx mcg (50,000 unit) tablet cholecalciferol (vitamin D3) 50 50 mcg PO DAILY #30 caps 05/02/23 12/06/24 Rx mcg (2,000 unit) capsule amitriptyline 10 mg tablet See Rx Instructions .Route 06/27/23 12/06/24 Rx .COMPLEX #90 tabs blood sugar diagnostic (OneTouch #100 ea 08/15/23 12/06/24 Rx Ultra Test strips) lisinopril 20 See Rx Instructions .Route 10/19/23 12/06/24 Rx mg-hydrochlorothiazide 12.5 mg .COMPLEX #90 tabs tablet duloxetine 30 mg capsule,delayed 30 mg PO DAILY To help my 03/27/24 12/06/24 History release (Cymbalta) neuropathy omeprazole 40 mg capsule,delayed 40 mg PO DAILY #90 caps 03/27/24 12/06/24 Rx release methocarbamol 750 mg tablet See Rx Instructions .Route 09/05/24 12/06/24 Rx .COMPLEX #90 tabs magnesium 250 mg tablet 250 mg PO BID PRN supplement 09/25/24 12/06/24 History mecobalamin (vitamin B12) 500 mcg 500 mcg PO DIRECTED 09/25/24 12/06/24 History chewable tablet polyethylene glycol 3350 17 17 g PO DAILY #510 grams 09/25/24 12/06/24 Rx gram/dose oral powder (Miralax) psyllium husk 3.4 gram/5.4 gram 1 tbsp PO DAILY #660 grams 09/25/24 12/06/24 Rx oral powder (Metamucil) gabapentin 600 mg tablet 600 mg PO BID #60 tabs 10/15/24 12/06/24 Rx tramadol 50 mg tablet 50 mg PO TID #90 tabs 10/15/24 12/06/24 Rx levothyroxine 88 mcg tablet See Rx Instructions .Route 11/07/24 12/06/24 Rx .COMPLEX #30 tabs ropinirole 0.5 mg tablet See Rx Instructions .Route 11/12/24 12/06/24 Rx .COMPLEX #30 tabs New Prescriptions to Start Prescriptions: Allergies Allergy/AdvReac Type Severity Reaction Status Date / Time No Known Allergies Allergy Verified 09/25/24 13:13 Assessment and Plan *Assessment and plan (1) Chronic back pain: Status: Acute Category: Medical Code(s): M54.9 - Dorsalgia, unspecified; G89.29 - Other chronic pain Plan I will refill the patient's ropinirole, methocarbamol, gabapentin and tramadol. Patient will return to clinic in 2 months. Risks and benefits of the medication have been explained in detail to the patient. The patient does understand the risk of dependence on the medication when given over a prolonged period. Patient has been advised of risks of oversedation with the prescribed medication. Narcan has been offered to the paitent in the event of oversedation. Patient has been advised that a family member should also be educated regarding administration of Narcan. The patient has been advised to consult with his/her primary care provider and pharmacist regarding drug-drug interaction of medications currently prescribed. Patient has been prescribed a controlled substance after being counseled on the medication, medication safety, and possible side effects. Opioid contract was reviewed and signed by the patient, and that they have agreed to all of the terms set forth by our compliance program. A UDS is needed to verify patient's compliance with our office pain contract. This is ordered based off specific treatments related to chronic pain with the potential to abuse certain medications. Patient has been instructed to contact the clinic with any concerns before the next appointment. Dr. Padilla has reviewed this note and agrees with this plan of care. This note was dictated using voice recognition software and make contain errors or omissions.
== END 2024-12-06 23:59 | disposition home or self-care (01) ==
PROVIDERS: PCP Nurse Practitioner Family; Visit Provider Nurse Practitioner Family
DX: M54.50 Low back pain, unspecified (principal); G89.29 Other chronic pain; Z79.899 Other long term (current) drug therapy
CPT/HCPCS: 99212; G0463